=== PATIENT | female | born 1985 | race Caucasian/White ===

== ENCOUNTER → 2019-04-13 | Outpatient (CLI) | payer OTHER ==
[~2019-04-13] MED LIST: ACET1TAB PO; AMOXIL; AZIT-21 PO; CODE118S2 PO; DIPH1TAB25 PO; FLT05NA16 NS; HYDR1TAB PO; NAPR-243 PO; ONDA4TAB8 PO; PHEN200T27 PO; PRM25T PO; PS30T PO; SULF1TAB38 PO
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
== END ==
LOC: RAD 15:20
PROVIDERS: ATTEND Nurse Practitioner Family
DX: M54.6 Pain in thoracic spine (principal)
CPT/HCPCS: 72146

== ENCOUNTER 2019-08-15 02:39 | Emergency (ER) | payer OTHER ==
[~2019-08-15] VITALS: Ht 172.7 cm; Wt 64.4 kg
[2019-08-15] MEDS ORDERED: PROMETHAZINE 25 MG (PHENERGAN) TAB PO ONE (03:15)
[2019-08-15] MEDS ORDERED: diphenhydrAMINE 25 MG TAB (BENADRYL) PO ONE (03:15)
[2019-08-15] MEDS ORDERED: ONDANSETRON 4 MG (ZOFRAN) ORAL DISSOLVE TAB PO ONE (03:15)
[2019-08-15] MEDS ORDERED: KETOROLAC 60 MG/2 ML VIAL IM ONE (03:15)
[2019-08-15] MEDS ORDERED: DEXAMETHASONE 10 MG/ML (DECADRON) 1 ML VIAL IM ONE (03:15)
--- NOTE | 2019-08-15 03:20 | ED Headache ---
General Stated Complaint: MIGRAINE Source: patient Exam Limitations: no limitations History of Present Illness Date Seen by Provider: Aug 15, 2019 Time Seen by Provider: 02:59 Initial Comments The patient arrives to ER by private conveyance from home with chief complaint of a migraine that started about 4 hours ago throbbing behind the eyes bilaterally. She says she has a history of migraines that present just like this. Only rarely does she have ER to get shot. She's had lots of migraines in the last 6 months and associated with allergies. She says she does not tolerate ibuprofen because it causes hives but she has tolerated Toradol in the past. She denies double vision, blindness, weakness, vomiting but she does have nausea. No fevers chills nasal discharge, sore throat, cough or shortness of air. Last menstrual period was approximately 4 weeks ago she expects to start today or tomorrow. She does not take any medicines routinely. She follows irregularly at [facility] as needed. 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 She did take BC powder about 2 hours ago without significant relief. Allergies and Home Medications Allergies Coded Allergies: No Known Drug Allergies (Verified , 10/28/07) Uncoded Allergies: NKDA (Allergy, Mild, 08/14/08) Home Medications Acetaminophen/Caffeine 1 Each Tablet, 1-1.5 TAB PO Q6H PRN for HEADACHE, (Reported) TAKES 1 TO 1 & 1/2 TABLETS NEEDED FOR PAIN Azithromycin 250 Mg Tab, PO Z-JUSTIN, (Reported) 2 TABLETS 1ST DAY (NOW), THEN TAKE 1 TABLET DAILY FOR 4 DAYS FILLED 05-29-13 Fluticasone Propionate 16 Gm [place], 2 SPRAYS NS DAILY, (Reported) Ondansetron 4 Mg/Udtablet Tab.rapdis, 4 MG PO Q6H PRN for PRN Nausea Prescribed by: BETTY SHARMA on 06/01/13 1136 Pseudoephedrine Hcl 30 Mg Tab, 60 MG PO Q6H Prescribed by: MEAGHAN ARGUELLO on 06/01/13 7789 Patient Home Medication List Home Medication List Reviewed: Yes Review of Systems Review of Systems Constitutional: No chills, No diaphoresis Eyes: Denies Blindness, Denies Blurred Vision Ears, Nose, Mouth, Throat: denies ear pain, denies ear discharge Respiratory: No cough, No short of breath Cardiovascular: No edema, No Hx of Intervention Gastrointestinal: No abdominal pain, No constipation, No diarrhea; nausea; No vomiting Genitourinary: No discharge, No dysuria Musculoskeletal: No back pain, No joint pain All Other Systems Reviewed Negative Unless Noted: Yes Past Llnhwkn-Xzkppm-Mrqpwi Hx Patient Social History Alcohol Use: Denies Use Recreational Drug Use: No Smoking Status: Never a Smoker Recent Foreign Travel: No Contact w/Someone Who Travel: No Immunizations Up To Date Date of Influenza Vaccine: Apr 01, 2013 Past Medical History Reproductive Disorders: No Family Medical History Family history: Hypertension 03 FATHER Family history: Thyroid disorder 03 FATHER History of - respiratory disease 03 FATHER (COPD) No Family History of: Abdominal aortic aneurysm Rockcastle's disease Alcoholism Aphasia Cancer Cancer of colon Cataract Chest pain Congenital heart disease Congestive heart failure Cystic fibrosis Dementia Dysphagia Family history: Allergy Family history: Alzheimer's disease Family history: Arthritis Family history: Asthma Family history: Breast disease Family history: Cardiovascular disease Family history: Coronary thrombosis Family history: Diabetes mellitus Family history: Gastrointestinal disease Family history: Glaucoma Family history: Osteoporosis Headache Hearing loss Heart disease Hereditary disease History of - anemia History of - disorder History of drug abuse Human immunodeficiency virus (HIV) seropositivity Hypercholesterolemia Infertile Kidney disease Malignant neoplasm of lung Myocardial infarction Parkinson's disease Prostate cancer Psychotic disorder Seizure disorder Stroke Tuberculosis Visual impairment Physical Exam Vital Signs Capillary Refill : Height, Weight, BMI Height: 5'8.00" Weight: 131lbs. oz. [id number]; BMI Method:Stated General Appearance: WD/WN, mild distress HEENT: normal ENT inspection, TMs normal, pharynx normal Neck: full range of motion, supple, normal inspection Cardiovascular: normal peripheral pulses, regular rate, rhythm Respiratory: no respiratory distress, no accessory muscle use Psychiatric: alert, oriented x 3 Crainal Nerves: normal hearing, normal speech Coordination/Gait: normal gait Motor/Sensory: no motor deficit, no sensory deficit Skin: normal color, warm/dry Progress/Results/Core Measures Results/Orders My Orders Orders - MUNA ALCANTAR Ondansetron Oral Dissolve Tab (Zofran (08/15/19 03:15) Ketorolac Injection (Toradol Injection) (08/15/19 03:15) Promethazine Tablet (Phenergan Tablet) (08/15/19 03:15) Diphenhydramine Tablet (Benadryl Tablet) (08/15/19 03:15) Dexamethasone Injection (Decadron Inject (08/15/19 03:15) Progress Progress Note : Time: 03:18 Progress Note We'll give her Zofran ODT, dexamethasone and Toradol IM. Then we'll give her Phenergan and Benadryl oral and allow her to go home and sleep. She has also requested a note for work. Departure Impression Primary Impression: Migraine headache Qualified Codes: G43.909 - Migraine, unspecified, not intractable, without status migrainosus Disposition: HOME, SELF-CARE Condition: Stable Departure-Patient Inst. Decision time for Depature: 03:19 Referrals: [facility] ([place]) Primary Care Physician Patient Instructions: Migraines (DC) Add. Discharge Instructions: Plan to follow up with your primary care doctor in the next few weeks to discuss medications that might prevent her migraine headaches. Tonight get some sleep and drink plenty of fluids before you lay down. Tylenol 1000 mg every 8 hours as necessary for pain. Naproxen 1-2 tablets twice a day as necessary for pain. Work/School Note: Work Release Form Date Seen in the Emergency Department: Aug 15, 2019 Return to Work: Aug 16, 2019 Restrictions: No Restrictions MUNA ALCANTAR Aug 15, 2019 03:20
--- OUTSIDE RECORDS SUMMARY | 2019-08-15 03:23 | XMS REPORT ---
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 Name Role Phone KASSANDRA CONTRERAS Unavailable PROBLEMS Type Condition ICD9-CM Code TNE90-VC Code Onset Dates Condition S tatus SNOMED Code Problem Dysthymia F34.1 Active 09186560 Problem Other chronic pain G89.29 Active 8 [id number] Problem Migraine with aura and without status migrainosu s, not intractable G43.109 Active 3300724 ALLERGIES No Information ENCOUNTERS Encounter Location Date Diagnosis [place] [address] [address] Apr, [place] [address] [address] Apr, Other chronic pain G89.29 ; Low back fawn n M54.5 and Cervicalgia M54.2 [place] [address] [address] Apr, [place] [address] [address] Apr, [facility] [address] [address] Apr, [place] [address] [address] Apr, Other chronic pain G89.29 ; Low back fawn n M54.5 and Cervicalgia M54.2 [place] [address] [address] 10 Apr, 2019 Other chronic pain G89.29 ; Low back fawn n M54.5 and Cervicalgia M54.2 [place] [address] [address] Apr, Other chronic pain G89.29 ; Low back fawn n M54.5 and Cervicalgia M54.2 [place] [address] [address] Apr, Low back pain M54.5 ; Other chronic pain G89.29 and Cervicalgia M54.2 [place] [address] [address] Mar, Pain in thoracic spine M54.[address] [address] Feb, Pain in thoracic spine M54.6 and Other c hronic pain G89.[address] [address] Dec, Muscle strain T14.8XXA [address] [address] Aug, Dysthymia F34.[address] [address] Jan, Dysthymia F34.1 ; Cervicalgia M54.2 and Family history of systemic lupus erythematosus Z82.[address] [address] Nov, Dysthymia F34.1 ; Migraine with aura and without status migrainosus, not intractable G43.109 ; Screening for diabetes mellitus Z13.1 ; Screening for thyroid disorder Z13.29 ; Screening, iron deficiency anemia Z13.0 and Screening for hyperlipidemia Z13.220 [facility] [address] [facility] [id number] [place] [address] Mar, Pharyngitis J02.9 and Bronch itis J40 [address] [address] Mar, Hematochezia K92.1 and Abdominal pain R1 0.9 [facility] [address] [place] [id number] [place] [address] 03 Mar, 2015 [facility] [address] [address] 30 Feb, 2015 Well woman exam Z01.419 ; Routine screen ing for STI (sexually transmitted infection) Z11.3 ; Vaginal discharge N89.8 ; Irregular menses N92.6 ; History of bloody stools Z87.19 ; Other hemorrhoids K64.8 ; Desire for Z31.9 ; Migraine with aura and without status migrainosus, not intractable G43.109 ; History of abnormal cervical Pap smear Z87.898 ; Unprotected sexual intercourse Z72.51 ; Trichomonas infection A59.9 and Yeast infection B37.9 [facility] [address] [facility] [place] [id number] 16 Feb, 2015 Encounter for dental examination Z01.20 and Dental caries K02.9 [place] [address] [place] [id number] [place] [address] 17 Nov, 2014 Dysuria 788.1 and UTI (urinary tract inf ection) 599.0 [place] [address] [address] 08 Nov, 2014 [place] [address] [address] 04 Nov, 2014 Routine gynecological examination V72.31 ; Breast cancer screening V76.10 ; Screening examination for STD (sexually transmitted disease) V74.5 and Trichomonas infection 131.9 [place] [address] [address] 14 Jun, 2014 [place] [address] [address] Jun, [place] [address] [address] Oct, [facility] [address] [address] Oct, [place] [address] [address] Oct, [facility] [address] [facility] [id number] [facility] [place] [address] Oct, [facility] [address] [facility] [id number] [place] [address] Oct, [facility] [address] [id number] [place] [address] Oct, [facility] [address] [id number] [place] [address] Oct, [facility] [address] [facility] [id number] [place] [address] Oct, [facility] [address] [id number] [place] [address] Oct, [facility] [address] [id number] [place] [address] Jun, [facility] [address] [id number] [place] [address] Jun, [facility] [address] [id number] [place] [address] Jun, [facility] [address] [id number] [place] [address] May, [facility] [address] [id number] [place] [address] Feb, [facility] [address] [id number] [place] [address] Feb, [facility] [address] [id number] [place] [address] Jan, [facility] [address] [id number] [place] [address] Jan, [facility] [address] [id number] [place] [address] Jan, [facility] [address] [id number] [place] [address] Jan, [facility] [address] [id number] [place] [address] Nov, [facility] [address] [id number] [place] [address] Oct, [facility] [address] [id number] [place] [address] Sep, [facility] [address] [id number] [place] [address] Aug, [facility] [address] [place] [id number] [place] [address] Jan, [facility] [address] [id number] [place] [address] Dec, [facility] [address] [id number] [place] [address] Dec, [facility] [address] [id number] [place] [address] Jan, [facility] [address] [id number] [place] [address] Nov, IMMUNIZATIONS No Known Immunizations SOCIAL HISTORY Never Assessed REASON FOR VISIT PLAN OF CARE VITAL SIGNS Height 68 in 2013-06-08 Weight 129.8 lbs 2013-06-08 Temperature 98.8 degrees Fahrenheit 2013-06-08 Heart Rate 72 bpm 2013-06-08 Respiratory Rate 16 2013-06-08 Blood pressure systolic 110 mmHg 2013-06-08 Blood pressure diastolic 74 mmHg 2013-06-08 MEDICATIONS Unknown Medications RESULTS No Results PROCEDURES No Known procedures INSTRUCTIONS MEDICATIONS ADMINISTERED No Known Medications MEDICAL (GENERAL) HISTORY Type Description Date Medical History Genital herpes, unspecified Medical History Pleurisy without mention of effusion or current tuberculosis Medical History Other hemorrhoids Medical History History of abnormal cervical Pap smear Surgical History No Surgical history information Hospitalization History one week for poison mothballs ingest ion 05/2013 Hospitalization History bronchitis not admitted 03/2017
--- OUTSIDE RECORDS SUMMARY | 2019-08-15 03:23 | XMS REPORT ---
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 Name Role Phone ARAM NAVA Unavailable PROBLEMS Type Condition ICD9-CM Code [id number] Code Onset Dates Condition S tatus SNOMED Code Problem Dysthymia F34.1 Active 09575238 Problem Other chronic pain G89.29 Active 8 7511210 Problem Migraine with aura and without status migrainosu s, not intractable G43.109 Active [id number] ALLERGIES No Information ENCOUNTERS Encounter Location Date Diagnosis [facility] [address] [facility] [id number] [address] [place] [address] Jun, Tooth infection K04.7 [facility] [address] [facility] [id number] [address] [place] [address] May, Generalized body aches R52 [facility] [address] [facility] [id number] [address] [place] [address] May, [facility] [address] [facility] [id number] [address] [place] [address] Apr, Other chronic pain G89.29 ; Low back pain M54.5 and Cervicalgia M54.2 [facility] [address] [facility] [id number] [address] [place] [address] 17 Apr, 2019 Other chronic pain G89.29 ; Low back pain M54.5 and Cervicalgia M54.2 [facility] [address] [facility] [id number] [address] [place] [address] Apr, [facility] [address] [facility] [id number] [address] [place] [address] Apr, [facility] [address] [id number] [address] [place] [address] Apr, [facility] [address] [id number] [address] [place] [address] Apr, Other chronic pain G89.29 ; Low back pain M54.5 and Cervicalgia M54.2 [facility] [address] [facility] [id number] [address] [place] [address] Apr, Other chronic pain G89.29 ; Low back pain M54.5 and Cervicalgia M54.2 [place] [address] [id number] [address] [place] [address] Apr, Other chronic pain G89.29 ; Low back pain M54.5 and Cervicalgia M54.2 [place] [address] [facility] [id number] [address] [place] [address] Apr, Low back pain M54.5 ; Other chronic pain G89.29 and Cervicalgia M54.2 [place] [address] [facility] [id number] [address] [place] [address] Mar, Pain in thoracic spine M54.6 [place] [address] [facility] [id number] [address] [place] [address] Feb, Pain in thoracic spine M54.6 and Other chronic pain G89.29 [place] [address] [facility] [id number] [address] [place] [address] Dec, Muscle strain T14.8XXA [place] [address] [facility] [id number] [address] [place] [address] Aug, Dysthymia F34.1 [place] [address] [facility] [id number] [address] [place] [address] Jan, Dysthymia F34.1 ; Cervicalgi a M54.2 and Family history of systemic lupus erythematosus Z82.69 [place] [address] [facility] [id number] [address] [place] [address] 20 Sep, 2018 Dysthymia F34.1 ; Migraine w ith aura and without status migrainosus, not intractable G43.109 ; Screening for diabetes mellitus Z13.1 ; Screening for thyroid disorder Z13.29 ; Screening, iron deficiency anemia Z13.0 and Screening for hyperlipidemia Z13.220 [facility] [address] [facility] [id number] [address] [place] [address] Mar, Pharyngitis J02.9 and Bronch itis J40 [facility] [address] [place] [id number] [address] [place] [address] Mar, Hematochezia K92.1 and Abdom inal pain R10.[address] [address] Mar, [place] [address] [place] [id number] [address] [place] [address] Feb, Well woman exam Z01.419 ; Ro utine screening for STI (sexually transmitted infection) Z11.3 ; Vaginal discharge N89.8 ; Irregular menses N92.6 ; History of bloody stools Z87.19 ; Other hemorrhoids K64.8 ; Desire for Z31.9 ; Migraine with aura and without status migrainosus, not intractable G43.109 ; History of abnormal cervical Pap smear Z87.898 ; Unprotected sexual intercourse Z72.51 ; Trichomonas infection A59.9 and Yeast infection B37.9 [facility] [address] [place] [id number] [address] [place] [id number] 16 Feb, 2015 Encounter for dental examina tion Z01.20 and Dental caries K02.9 [facility] [address] [place] [id number] [address] [place] [address] 17 Nov, 2014 Dysuria 788.1 and UTI (urina ry tract infection) 599.0 [facility] [address] [place] [id number] [address] [place] [address] 08 Nov, 2014 [facility] [address] [place] [id number] [address] [place] [address] Nov, Routine gynecological examin ation V72.31 ; Breast cancer screening V76.10 ; Screening examination for STD (sexually transmitted disease) V74.5 and Trichomonas infection 131.9 [facility] [address] [id number] [address] [place] [address] 14 Jun, 2014 [facility] [place] [address] [id number] [address] [place] [address] Jun, [facility] [place] [address] [id number] [address] [place] [address] Oct, [facility] [place] [address] [id number] [address] [place] [address] Oct, [facility] [place] [address] [id number] [address] [place] [address] Oct, [facility] [place] [address] [id number] [address] [place] [address] Oct, [facility] [place] [address] [id number] [address] [place] [address] Oct, [facility] [place] [address] [id number] [address] [place] [address] Oct, [facility] [place] [address] [id number] [address] [place] [address] Oct, [facility] [place] [address] [id number] [address] [place] [address] Oct, [facility] [place] [address] [id number] [address] [place] [address] Oct, [facility] [place] [address] [id number] [address] [place] [address] Jun, [facility] [place] [address] [id number] [address] [place] [address] Jun, [facility] [place] [address] [id number] [address] [place] [address] Jun, [facility] [place] [address] [id number] [address] [place] [address], [place] [address] May, [facility] [address] [id number] [address] [place] [address], [place] [address] Feb, [facility] [address] [id number] [address] [place] [address], [place] [address] Feb, [facility] [address] [id number] [address] [place] [address], [place] [address] Jan, [facility] [address] [id number] [address] [place] [address], [place] [address] Jan, [facility] [address] [id number] [address] [place] [address], [place] [address] Jan, [facility] [address] [id number] [address] [place] [address], [place] [address] Jan, [facility] [address] [id number] [address] [place] [address], [place] [address] Nov, [facility] [address] [id number] [address] [place] [address], [place] [address] Oct, [facility] [address] [id number] [address] [place] [address], [place] [address] Sep, [facility] [place] [address] [id number] [address] [place] [address], [place] [address] Aug, [facility] [place] [address] [id number] [address] [place] [address] Jan, [facility] [place] [address] [id number] [address] [place] [address] Dec, [facility] [address] [id number] [address] [place] [address] Dec, [facility] [place] [address] [id number] [address] [place] [address] Jan, [facility] [place] [address] [id number] [address] [place] [address] 10 Nov, 2008 IMMUNIZATIONS No Known Immunizations SOCIAL HISTORY Never Assessed REASON FOR VISIT PLAN OF CARE VITAL SIGNS Height 68 in 2011-08-29 Weight 121.3 lbs 2011-08-29 Temperature 97.8 degrees Fahrenheit 2011-08-29 Heart Rate 64 bpm 2011-08-29 Respiratory Rate 16 2011-08-29 Blood pressure systolic 94 mmHg 2011-08-29 Blood pressure diastolic 60 mmHg 2011-08-29 MEDICATIONS No Known Medications RESULTS No Results PROCEDURES No Known [...]
--- OUTSIDE RECORDS SUMMARY | 2019-08-15 03:23 | XMS REPORT ---
Author Author Remedios Ovalles Organization [facility] Address [address] [place] [address] Care Team Providers Care Photographic Process Worker Name Role Phone JANNETTE Ovalles Unavailable PROBLEMS Type Condition ICD9-CM Code VCB70-KI Code Onset Dates Condition S tatus SNOMED Code Problem Dysthymia F34.1 Active 90314152 Problem Other chronic pain G89.29 Active 8 9841058 Problem Migraine with aura and without status migrainosu s, not intractable G43.109 Active [id number] ALLERGIES No Information ENCOUNTERS Encounter Location Date Diagnosis [facility] [address] [facility] [id number] [address] [place] [address] Jun, Tooth infection K04.7 [facility] [address] [facility] [id number] [address] [place] [address] May, Generalized body aches R52 [place] [address] [facility] [id number] [address] [place] [address] May, [facility] [address] [facility] [id number] [address] [place] [address] 20 Apr, 2019 Other chronic pain G89.29 ; Low back pain M54.5 and Cervicalgia M54.2 [facility] [address] [facility] [id number] [address] [place] [address] 17 Apr, 2019 Other chronic pain G89.29 ; Low back pain M54.5 and Cervicalgia M54.2 [facility] [address] [facility] [id number] [address] [place] [address] 13 Apr, 2019 [facility] [address] [facility] [id number] [address] [place] [address] Apr, [facility] [address] [facility] [id number] [address] [place] [address] Apr, [facility] [address] [facility] [id number] [address] [place] [address] Apr, Other chronic pain G89.29 ; Low back pain M54.5 and Cervicalgia M54.2 [place] [address] [facility] [id number] [address] [place] [address] Apr, Other chronic pain G89.29 ; Low back pain M54.5 and Cervicalgia M54.2 [place] [address] [facility] [id number] [address] [place] [address] Apr, Other chronic pain G89.29 ; Low back pain M54.5 and Cervicalgia M54.2 [place] [address] [facility] [id number] [address] [place] [address] Apr, Low back pain M54.5 ; Other chronic pain G89.29 and Cervicalgia M54.2 [place] [address] [facility] [id number] [address] [place] [address] Mar, Pain in thoracic spine M54.6 [place] [address] [facility] [id number] [address] [place] [address] Feb, Pain in thoracic spine M54.6 and Other chronic pain G89.29 [place] [address] [facility] [id number] [address] [place] [address] Dec, Muscle strain T14.8XXA [place] [address] [facility] [id number] [address] [place] [address] Aug, Dysthymia F34.1 [place] [address] [facility] [id number] [address] [place] [address] Jan, Dysthymia F34.1 ; Cervicalgi a M54.2 and Family history of systemic lupus erythematosus Z82.69 [place] [address] [facility] [id number] [address] [place] [address] Nov, Dysthymia F34.1 ; Migraine w ith aura and without status migrainosus, not intractable G43.109 ; Screening for diabetes mellitus Z13.1 ; Screening for thyroid disorder Z13.29 ; Screening, iron deficiency anemia Z13.0 and Screening for hyperlipidemia Z13.220 [facility] [address] [place] [id number] [address] [place] [address] Mar, Pharyngitis J02.9 and Bronch itis J40 [facility] [address] [address] Mar, Hematochezia K92.1 and Abdom inal pain R10.9 [place] [address] [place] [id number] [address] [place] [address] Mar, [facility] [address] [place] [id number] [address] [place] [address] 30 Feb, 2015 Well woman exam Z01.419 ; Ro utine [...] Trichomonas infection A59.9 and Yeast infection B37.9 [facility] [address] [place] [id number] [address] [place] [id number] 16 Feb, 2015 Encounter for dental examina tion Z01.20 and Dental caries K02.9 [facility] [address] [place] [id number] [address] [place] [address] 17 Nov, 2014 Dysuria 788.1 and UTI (urina ry tract infection) 599.0 [facility] [address] [place] [id number] [address] [place] [address] 08 Nov, 2014 [facility] [address] [place] [id number] [address] [place] [address] Nov, Routine gynecological examin ation V72.31 ; Breast cancer screening V76.10 ; Screening examination for STD (sexually transmitted disease) V74.5 and Trichomonas infection 131.9 [facility] [address] [id number] [address] [place] [address] 14 Jun, 2014 [facility] [address] [id number] [address] [place] [address] Jun, [facility] [address] [id number] [address] [place] [address] Oct, [facility] [address] [id number] [address] [place] [address] Oct, [facility] [address] [id number] [address] [place] [address] Oct, [facility] [address] [id number] [address] [place] [address] Oct, [facility] [address] [id number] [address] [place] [address] Oct, [facility] [address] [id number] [address] [place] [address] Oct, [facility] [address] [id number] [address] [place] [address] Oct, [facility] [address] [id number] [address] [place] [address] Oct, [facility] [address] [id number] [address] [place] [address] Oct, [facility] [address] [id number] [address] [place] [address] Jun, [facility] [address] [id number] [address] [place] [address] Jun, [facility] [address] [id number] [address] [place] [address] Jun, [facility] [address] [id number] [address] [place] [address], [place] [address] May, [facility] [address] [id number] [address] [place] [address], [place] [address] Feb, [facility] [address] [id number] [address] [place] [address], [place] [address] Feb, [facility] [address] [id number] [address] [place] [address], [place] [address] Jan, [facility] [address] [id number] [address] [place] [address], [place] [address] Jan, [facility] [address] [id number] [address] [place] [address], [place] [address] Jan, [facility] [address] [id number] [address] [place] [address], [place] [address] Jan, [facility] [address] [id number] [address] [place] [address], [place] [address] Nov, [facility] [address] [id number] [address] [place] [address], [place] [address] Oct, [facility] [address] [id number] [address] [place] [address], [place] [address] Sep, [facility] [address] [id number] [address] [place] [address], [place] [address] Aug, [facility] [address] [id number] [address] [place] [address], [place] [address] Jan, [facility] [address] [id number] [address] [place] [address], [place] [address] Dec, [facility] [address] [id number] [address] [place] [address], [place] [address] Dec, [facility] [address] [id number] [address] [place] [address], [place] [address] Jan, [facility] [address] [id number] [address] [place] [address], [place] [address] 10 Nov, 2008 IMMUNIZATIONS No Known Immunizations SOCIAL HISTORY Never Assessed REASON FOR VISIT PLAN OF CARE VITAL SIGNS MEDICATIONS No Known Medications RESULTS No Results [...]
--- OUTSIDE RECORDS SUMMARY | 2019-08-15 03:24 | XMS REPORT ---
Author Author Remedios Ovalles Organization [facility] Address [address] [place] [address] Care Team Providers Care Meat Hanger Name Role Phone JANNETTE Ovalles Unavailable PROBLEMS Type Condition ICD9-CM Code OOW07-NF Code Onset Dates Condition S tatus SNOMED Code Problem Migraine with aura and without status migrainosu s, not intractable G43.109 Active 0299168 Problem Dysthymia F34.1 Active 22205941 ALLERGIES No Information ENCOUNTERS Encounter Location Date Diagnosis [address] [address] Aug, Dysthymia F34.[address] [address] Jan, Dysthymia F34.1 ; Cervicalgi a M54.2 and Family history of systemic lupus erythematosus Z82.[address] [address] Nov, Dysthymia F34.1 ; Migraine w ith aura and without status migrainosus, not intractable G43.109 ; Screening for diabetes mellitus Z13.1 ; Screening for thyroid disorder Z13.29 ; Screening, iron deficiency anemia Z13.0 and Screening for hyperlipidemia Z13.220 [facility] [address] [address] Mar, Pharyngitis J02.9 and Bronch itis J40 [address] [address] Mar, Hematochezia K92.1 and Abdom inal pain R10.[address] [address] 03 Mar, 2015 [facility] [address] [facility] [id number] [address] [place] [address] 30 Feb, 2015 Well woman exam Z01.419 [...] Trichomonas infection A59.9 and Yeast infection B37.9 [facility] [address] [facility] [id number] [address] [place] [id number] 16 Feb, 2015 Encounter for dental examina tion Z01.20 and Dental caries K02.9 [facility] [address] [facility] [id number] [address] [place] [address] 17 Nov, 2014 Dysuria 788.1 and UTI (urina ry tract infection) 599.0 [facility] [address] [facility] [id number] [address] [place] [address] Nov, [facility] [address] [facility] [id number] [address] [place] [address] 04 Nov, 2014 Routine gynecological examin ation V72.31 ; Breast cancer screening V76.10 ; Screening examination for STD (sexually transmitted disease) V74.5 and Trichomonas infection 131.9 [facility] [address] [facility] [id number] [address] [place] [address] Jun, [facility] [address] [facility] [id number] [address] [place] [address] Jun, [facility] [address] [facility] [id number] [address] [place] [address] Oct, [facility] [address] [facility] [id number] [address] [place] [address] Oct, [facility] [address] [id number] [address] [place] [address], [place] [address] Oct, [facility] [address] [id number] [address] [place] [address], [place] [address] Oct, [facility] [address] [id number] [address] [place] [address], [place] [address] Oct, [facility] [address] [id number] [address] [place] [address], [place] [address] Oct, [facility] [address] [id number] [address] [place] [address], [place] [address] Oct, [facility] [address] [id number] [address] [place] [address], [place] [address] Oct, [facility] [address] [id number] [address] [place] [address], [place] [address] Oct, [facility] [address] [id number] [address] [place] [address], [place] [address] Jun, [facility] [address] [id number] [address] [place] [address], [place] [address] Jun, [facility] [address] [id number] [address] [place] [address], [place] [address] Jun, [facility] [address] [id number] [address] [place] [address], [place] [address] May, [facility] [address] [id number] [address] [place] [address], [place] [address] Feb, [facility] [address] [id number] [address] [place] [address], [place] [address] Feb, [facility] [address] [id number] [address] [place] [address], [place] [address] Jan, [facility] [address] [id number] [address] [place] [address], [place] [address] Jan, [facility] [address] [id number] [address] [place] [address], [place] [address] Jan, [facility] [address] [id number] [address] [place] [address] Jan, [facility] [address] [id number] [address] [place] [phone] Nov, [facility] [address] [id number] [address] [place] [address] Oct, [facility] [address] [id number] [address] [place] [address] Sep, [facility] [address] [id number] [address] [place] [address] Aug, [facility] [address] [id number] [address] [place] [address] Jan, [facility] [address] [id number] [address] [place] [address] Dec, [facility] [address] [id number] [address] [place] [address] Dec, [facility] [address] [id number] [address] [place] [address] Jan, [facility] [address] [id number] [address] [place] [address] Nov, IMMUNIZATIONS No Known Immunizations SOCIAL HISTORY Never Assessed REASON FOR VISIT PLAN OF CARE VITAL SIGNS Height 68 in 2013-10-16 Weight 137 lbs 2013-10-16 Temperature 97.3 degrees Fahrenheit 2013-10-16 Blood pressure systolic 116 mmHg 2013-10-16 Blood pressure diastolic 70 mmHg 2013-10-16 MEDICATIONS Unknown Medications RESULTS No Results PROCEDURES Procedure Date Ordered Result Body Site TRICHOMONAS VAGIN, DIR PROBE Oct 16, 2013 SCR PAP SMER;NEW PT OBTAIN PREP&CONVY-LAB Oct 16, 2013 CYTOPATH C/V AUTO FLUID REDO Oct 16, 2013 CHYLMD TRACH, DNA, AMP PROBE Oct 16, 2013 CULTURE, BACTERIA, OTHER Oct 16, 2013 INSTRUCTIONS MEDICATIONS ADMINISTERED No Known Medications MEDICAL (GENERAL) HISTORY Type Description Date Medical History Genital herpes, unspecified Medical History Pleurisy without mention of effusion or current tuberculosis Medical History Other hemorrhoids Medical History History of abnormal cervical Pap smear Surgical History No know Surgical history Hospitalization History one week for poison mothballs ingest ion 05/2013 Hospitalization History bronchitis not admitted 03/2017
--- OUTSIDE RECORDS SUMMARY | 2019-08-15 03:24 | XMS REPORT ---
Author Author Remedios STATON Organization [employer] Address Unknown Phone Unavailable Care Team Providers Care Tool Machinist Name Role Phone ANNEL STATON CP Unavailable Allergies, Adverse Reactions, Alerts Substance Reaction Event Type Ibuprofen hives Drug Allergy Problems Problem Type Condition Code Onset Dates Condition Statu s Assessment Abdominal pain R10.9 Active Problem Chest pain, unspecified R07.9 Acti ve Assessment Hematochezia K92.1 Active Problem Other hemorrhoids K64.8 Active Problem Desire for Z31.9 Active Problem History of bloody stools Z87.19 Act lizzette Problem Genital herpes, unspecified A60.00 Active Problem Pleurisy without mention of effusion or current tuberc ulosis R09.1 Active Problem Migraine with aura and without status mi grainosus, not intractable G43.109 Active Problem History of abnormal cervical Pap smear Z87.898 Active Medications Medication Code System Code Instructions Start Date End Date Status Dosage potassium NDC 0 Oral 1 tab Acyclovir [facility] [address]-14 400 mg Oct 16, 2013 ta ke 1 tablet (400 mg) by oral route 2 times per day Multivitamins [facility] [address] Orally Once a day 1 tablet Magnesium [facility] [address] 500 MG Orally Once a day 1 tablet with a meal Lactinex [facility] 2073-770664 Orally not define d Procedures Procedure Coding System Code Date Office Visit, Est Pt., Level 3 CPT-4 96403 J an 2015 Vital Signs Date/Time: Mar 12, 2015 Temperature 98.6 F Weight 136.6 lbs Height 68 in BMI 20.77 Index Blood Pressure Diastolic 62 mmHg Blood Pressure Systolic 104 mmHg Cardiac Monitoring Heart Rate 64 bpm Results No Known Results Summary Purpose [employer] Submission
--- OUTSIDE RECORDS SUMMARY | 2019-08-15 03:24 | XMS REPORT ---
Author Author Remedios PONCE Organization [facility] Address [address] [place] [address] Care Team Providers Care Technical Project Lead Name Role Phone PAUL PONCETA Unavailable PROBLEMS Type Condition ICD9-CM Code ZAJ67-CO Code Onset Dates Condition S tatus SNOMED Code Problem Dysthymia F34.1 Active 37448638 Problem Migraine with aura and without status migrainosu s, not intractable G43.109 Active 0829279 ALLERGIES Substance Reaction Event Type Date Status Ibuprofen hives Drug Allergy Nov, Active ENCOUNTERS Encounter Location Date Diagnosis [facility] [address] [address] Nov, Dysthymia F34.1 ; Migraine w ith aura and without status migrainosus, not intractable G43.109 ; Screening for diabetes mellitus Z13.1 ; Screening for thyroid disorder Z13.29 ; Screening, iron deficiency anemia Z13.0 and Screening for hyperlipidemia Z13.220 [facility] [address] [address] Mar, Pharyngitis J02.9 and Bronch itis J40 [facility] [address] [address] Mar, Hematochezia K92.1 and Abdom inal pain R10.9 [facility] [address] [address] Mar, [address] [address] Feb, Well woman exam Z01.419 ; Ro [...] B37.9 [facility] [address] [id number] [address] [place] [id number] 16 Feb, 2015 Encounter for dental examina tion Z01.20 and Dental caries K02.9 [facility] [address] [id number] [address] [place] [address] 17 Nov, 2014 Dysuria 788.1 and UTI (urina ry tract infection) 599.0 [facility] [address] [facility] [id number] [address] [place] [address] 08 Nov, 2014 [facility] [address] [facility] [id number] [address] [place] [phone] 04 Nov, 2014 Routine gynecological examin ation V72.31 ; Breast cancer screening V76.10 ; Screening examination for STD (sexually transmitted disease) V74.5 and Trichomonas infection 131.9 [facility] [address] [facility] [id number] [address] [place] [address] 14 Jun, 2014 [facility] [address] [facility] [id number] [address] [place] [address] Jun, [facility] [address] [id number] [address] [place] [address] Oct, [facility] [address] [id number] [address] [place] [address] Oct, [facility] [address] [id number] [address] [place] [address] Oct, [facility] [address] [id number] [address] [place] [address] Oct, [facility] [address] [facility] [id number] [address] [place] [address] 14 Oct, 2013 [facility] [address] [id number] [address] [place] [address], [place] [address] Oct, [facility] [address] [id number] [address] [place] [address], [place] [address] Oct, [facility] [address] [id number] [address] [place] [address], [place] [address] Oct, [facility] [address] [id number] [address] [place] [address], [place] [address] Oct, [facility] [address] [id number] [address] [place] [address], [place] [address] Jun, [facility] [address] [id number] [address] [place] [address], [place] [address] Jun, [facility] [address] [id number] [address] [place] [address], [place] [address] Jun, [facility] [address] [id number] [address] [place] [address], [place] [address] May, [facility] [address] [id number] [address] [place] [address], [place] [address] Feb, [facility] [address] [id number] [address] [place] [address], [place] [address] Feb, [facility] [address] [id number] [address] [place] [address], [place] [address] Jan, [facility] [address] [id number] [address] [place] [address], [place] [address] Jan, [facility] [address] [id number] [address] [place] [address], [place] [address] Jan, [facility] [address] [id number] [address] [place] [address], [place] [address] Jan, [facility] [address] [id number] [address] [place] [address], [place] [address] Nov, [facility] [address] [id number] [address] [place] [address] Oct, [facility] [address] [id number] [address] [place] [phone] Sep, [facility] [address] [id number] [address] [place] [address] Aug, [facility] [address] [id number] [address] [place] [address] Jan, [facility] [address] [id number] [address] [place] [address] Dec, [facility] [address] [id number] [address] [place] [address] Dec, [facility] [address] [id number] [address] [place] [address] Jan, [facility] [address] [id number] [address] [place] [address] Nov, IMMUNIZATIONS No Known Immunizations SOCIAL HISTORY Never Assessed REASON FOR VISIT Establish Care Beverly VALDES, Discuss medications Corrina Palomino MA, Migraines Corrina Palomino MA, Depression Corrina Palomino MA PLAN OF CARE Activity Details Follow Up 4 Weeks Reason:anxiety/migra levon VITAL SIGNS Height 68 in 2017-11-25 Weight 110.5 lbs 2017-11-25 Temperature 98.3 degrees Fahrenheit 2017-11-25 Heart Rate 74 bpm 2017-11-25 Respiratory Rate 20 2017-11-25 BMI 16.80 kg/m2 2017-11-25 Blood pressure systolic 114 mmHg 2017-11-25 Blood pressure diastolic 74 mmHg 2017-11-25 MEDICATIONS Medication Instructions Dosage Frequency Start Date End Date Duration S tatus B12 Folate 1000 MG as directed A ctive Fish Oil Nuevo-3 1000 MG Orally Once a day 1 capsule 24h 30 day(s) Active Prozac 20 mg Orally Once a day 1 capsule 24h 20 Nov, 2017 30 day(s) Active D3 Adult 1000 MG Orally Once a day 4 tablets 24h Active Vitamin C 500 mg Orally Once a day 1 tablet 24h Active BC Headache 325-16-95 MG as directed Active Propranolol HCl 10 mg Orally 2 times a day 1 tablet on an empty sto mach 12h 20 Nov, 2017 30 day(s) Active RESULTS No Results PROCEDURES Procedure Date Ordered Result Body Site COMPREHEN METABOLIC PANEL Nov 25, 2017 ASSAY THYROID STIM HORMONE Nov 25, 2017 LIPID PANEL Nov 25, 2017 ASSAY OF VITAMIN D Nov 25, 2017 VENIPUNCT, ROUTINE* Nov 25, 2017 INSTRUCTIONS MEDICATIONS ADMINISTERED No Known Medications MEDICAL (GENERAL) HISTORY Type Description Date Surgical History No know Surgical history Hospitalization History one week for poison mothballs ingest ion 05/2013 Hospitalization History bronchitis not admitted 03/2017
--- OUTSIDE RECORDS SUMMARY | 2019-08-15 03:24 | XMS REPORT ---
Author Author Remedios Alonzo Doctor Organization [facility] Address Unknown Phone Unavailable Care Team Providers Care Operating Room Aide Name Role Phone Migration, Doctor Unavailable Unavailable PROBLEMS Type Condition ICD9-CM Code ALD28-YL Code Onset Dates Condition S tatus SNOMED Code Problem Migraine with aura and without status migrainosu s, not intractable G43.109 Active 9451226 Problem Dysthymia F34.1 Active 26092807 ALLERGIES No Information ENCOUNTERS Encounter Location Date Diagnosis [address] [address] Jan, Dysthymia F34.1 ; Cervicalgi a M54.2 and Family history of systemic lupus erythematosus Z82.[address] [address] 20 Nov, 2017 Dysthymia F34.1 ; Migraine w ith aura and without status migrainosus, not intractable G43.109 ; Screening for diabetes mellitus Z13.1 ; Screening for thyroid disorder Z13.29 ; Screening, iron deficiency anemia Z13.0 and Screening for hyperlipidemia Z13.220 [facility] [address] [address] Mar, Pharyngitis J02.9 and Bronch itis J40 [address] [address] Mar, Hematochezia K92.1 and Abdom inal pain R10.[address] [address] Mar, [address] [address] Feb, Well woman exam Z01.419 ; Ro [...] Trichomonas infection A59.9 and Yeast infection B37.9 [facility] [address] [id number] [address] [place] [id number] 16 Feb, 2015 Encounter for dental examina tion Z01.20 and Dental caries K02.9 [facility] [address] [facility] [id number] [address] [place] [address] 17 Nov, 2014 Dysuria 788.1 and UTI (urina ry tract infection) 599.0 [facility] [address] [facility] [id number] [address] [place] [address] 08 Nov, 2014 [facility] [address] [facility] [id number] [address] [place] [address] 04 Nov, 2014 Routine gynecological examin ation V72.31 ; Breast cancer screening V76.10 ; Screening examination for STD (sexually transmitted disease) V74.5 and Trichomonas infection 131.9 [facility] [address] [facility] [id number] [address] [place] [address] 14 Jun, 2014 [facility] [address] [facility] [id number] [address] [place] [address] Jun, [facility] [address] [id number] [address] [place] [address] Oct, [facility] [address] [id number] [address] [place] [address] Oct, [facility] [address] [facility] [id number] [address] [place] [address] Oct, [facility] [address] [facility] [id number] [address] [place] [address] Oct, [facility] [address] [id number] [address] [place] [address], [place] [address] 14 Oct, 2013 [facility] [address] [id number] [address] [place] [address], [place] [address] Oct, [facility] [address] [id number] [address] [place] [address], [place] [address] Oct, [facility] [address] [id number] [address] [place] [address], [place] [address] Oct, [facility] [address] [id number] [address] [place] [address], [place] [address] Oct, [facility] [address] [id number] [address] [place] [address], [place] [address] Jun, [facility] [address] [id number] [address] [place] [address], [place] [address] Jun, [facility] [address] [id number] [address] [place] [address], [place] [address] Jun, [facility] [address] [id number] [address] [place] [address], [place] [address] May, [facility] [address] [id number] [address] [place] [address], [place] [address] Feb, [facility] [address] [id number] [address] [place] [address], [place] [address] Feb, [facility] [address] [id number] [address] [place] [address], [place] [address] Jan, [facility] [address] [id number] [address] [place] [address], [place] [address] Jan, [facility] [address] [id number] [address] [place] [address], [place] [address] 05 Jan, 2013 [facility] [address] [id number] [address] [place] [address], [place] [address] Jan, [facility] [address] [id number] [address] [place] [address], [place] [address] Nov, [facility] [address] [id number] [address] [place] [phone] Oct, [facility] [address] [id number] [address] [place] [address] Sep, [facility] [address] [id number] [address] [place] [address] Aug, [facility] [address] [id number] [address] [place] [address] Jan, [facility] [address] [id number] [address] [place] [address] Dec, [facility] [address] [id number] [address] [place] [address] Dec, [facility] [address] [facility] [id number] [address] [place] [address] Jan, [facility] [address] [facility] [id number] [address] [place] [address] Nov, IMMUNIZATIONS No Known Immunizations SOCIAL HISTORY Never Assessed REASON FOR VISIT EMR-[facility] [place] PLAN OF CARE VITAL SIGNS MEDICATIONS No [...]
--- OUTSIDE RECORDS SUMMARY | 2019-08-15 03:24 | XMS REPORT ---
Author Author Remedios Alonzo Doctor Organization [facility] Address Unknown Phone Unavailable Care Team Providers Care Bolt Sawyer Name Role Phone Migration, Doctor Unavailable Unavailable PROBLEMS Type Condition ICD9-CM Code [id number] Code Onset Dates Condition S tatus SNOMED Code Problem Migraine with aura and without status migrainosu s, not intractable G43.109 Active 6782489 Problem Dysthymia F34.1 Active 64233505 ALLERGIES No Information ENCOUNTERS Encounter Location Date Diagnosis [address] [address] Jan, Dysthymia F34.1 ; Cervicalgi a M54.2 and Family history of systemic lupus erythematosus Z82.[address] [address] 20 Nov, 2017 Dysthymia F34.1 ; Migraine w ith aura and without status migrainosus, not intractable G43.109 ; Screening for diabetes mellitus Z13.1 ; Screening for thyroid disorder Z13.29 ; Screening, iron deficiency anemia Z13.0 and Screening for hyperlipidemia Z13.220 [facility] [address] [address] Mar, Pharyngitis J02.9 and Bronch itis J40 [address] [address] Mar, Hematochezia K92.1 and Abdom inal pain R10.[address] [address] Mar, [address] [address] Feb, Well woman exam Z01.419 ; Ro [...] A59.9 and Yeast infection B37.9 [facility] [address] [id number] [address] [place] [id number] 16 Feb, 2015 Encounter for dental examina tion Z01.20 and Dental caries K02.9 [facility] [address] [facility] [id number] [address] [place] [address] 17 Nov, 2014 Dysuria 788.1 and UTI (urina ry tract infection) 599.0 [facility] [address] [facility] [id number] [address] [place] [address] 08 Nov, 2014 [facility] [address] [facility] [id number] [address] [place] [address] 04 Nov, 2014 Routine gynecological examin ation V72.31 ; Breast cancer screening V76.10 ; Screening examination for STD (sexually transmitted disease) V74.5 and Trichomonas infection 131.9 [facility] [address] [facility] [id number] [address] [place] [address] 14 Jun, 2014 [facility] [address] [facility] [id number] [address] [place] [address] Jun, [facility] [address] [id number] [address] [place] [address] Oct, [facility] [address] [id number] [address] [place] [address] Oct, [facility] [address] [facility] [id number] [address] [place] [address] Oct, [facility] [address] [facility] [id number] [address] [place] [address] Oct, [facility] [address] [id number] [address] [place] [address], [place] [address] 14 Oct, 2013 [facility] [address] [id number] [address] [place] [address], [place] [address] Oct, [facility] [address] [id number] [address] [place] [address], [place] [address] Oct, [facility] [address] [id number] [address] [place] [address], [place] [address] Oct, [facility] [address] [id number] [address] [place] [address], [place] [address] Oct, [facility] [address] [id number] [address] [place] [address], [place] [address] Jun, [facility] [address] [id number] [address] [place] [address], [place] [address] Jun, [facility] [address] [id number] [address] [place] [address], [place] [address] Jun, [facility] [address] [id number] [address] [place] [address], [place] [address] May, [facility] [address] [id number] [address] [place] [address], [place] [address] Feb, [facility] [address] [id number] [address] [place] [address], [place] [address] Feb, [facility] [address] [id number] [address] [place] [address], [place] [address] Jan, [facility] [address] [id number] [address] [place] [address], [place] [address] Jan, [facility] [address] [id number] [address] [place] [address], [place] [address] 05 Jan, 2013 [facility] [address] [id number] [address] [place] [address], [place] [address] Jan, [facility] [address] [id number] [address] [place] [address], [place] [address] Nov, [facility] [address] [id number] [address] [place] [address] Oct, [facility] [address] [id number] [address] [place] [address] Sep, [facility] [address] [id number] [address] [place] [address] Aug, [facility] [address] [id number] [address] [place] [address] Jan, [facility] [address] [id number] [address] [place] [address] Dec, [facility] [address] [id number] [address] [place] [address] Dec, [facility] [address] [id number] [address] [place] [address] Jan, [facility] [address] [id number] [address] [place] [address] Nov, IMMUNIZATIONS No Known Immunizations SOCIAL HISTORY Never Assessed REASON FOR VISIT EMR-[facility] PLAN OF CARE VITAL SIGNS MEDICATIONS Medication Instructions Dosage Frequency Start Date End Date Duration S tatus Diflucan 150 mg take 1 tablet by Oral route once 1 ti me per day Oct, Active Flagyl 500 mg 1 tablet by Oral route 2 times per day f or 7 days Oct, Active PredniSONE 20 mg 1 tablet by Oral route 1 time per day for 5 days Feb, Active Acyclovir 400 mg take 1 tablet (400 mg) by oral route 2 times per day Oct, Active Bactrim DS 800-160 mg take 1 tablet by oral rout e every 12 hours for 7 day(s) Jan, Active RESULTS No Results PROCEDURES No Known procedures [...]
--- OUTSIDE RECORDS SUMMARY | 2019-08-15 03:24 | XMS REPORT ---
Author Author Remedios Alonzo Doctor Organization [facility] Address Unknown Phone Unavailable Care Team Providers Care Wrinkle Chaser Name Role Phone Migration, Doctor Unavailable Unavailable PROBLEMS Type Condition ICD9-CM Code NLY06-JE Code Onset Dates Condition S tatus SNOMED Code Problem Migraine with aura and without status migrainosu s, not intractable G43.109 Active 0277658 Problem Dysthymia F34.1 Active 74144684 ALLERGIES No Information ENCOUNTERS Encounter Location Date Diagnosis [address] [address] Jan, Dysthymia F34.1 ; Cervicalgi a M54.2 and Family history of systemic lupus erythematosus Z82.[address] [address] 20 Nov, 2017 Dysthymia F34.1 ; Migraine w ith aura and without status migrainosus, not intractable G43.109 ; Screening for diabetes mellitus Z13.1 ; Screening for thyroid disorder Z13.29 ; Screening, iron deficiency anemia Z13.0 and Screening for hyperlipidemia Z13.220 [facility] [address] [address] Mar, Pharyngitis J02.9 and Bronch itis J40 [address] [address] Mar, Hematochezia K92.1 and Abdom inal pain R10.[address] [address] Mar, [address] [address] Feb, Well woman exam Z01.419 ; Ro [...] Trichomonas infection A59.9 and Yeast infection B37.9 [facility] [address] [id number] [address] [place] [id number] 16 Feb, 2015 Encounter for dental examina tion Z01.20 and Dental caries K02.9 [facility] [address] [facility] [id number] [address] [place] [address] 17 Nov, 2014 Dysuria 788.1 and UTI (urina ry tract infection) 599.0 [facility] [address] [facility] [id number] [address] [place] [address] 08 Nov, 2014 [facility] [address] [facility] [id number] [address] [place] [address] 04 Nov, 2014 Routine gynecological examin ation V72.31 ; Breast cancer screening V76.10 ; Screening examination for STD (sexually transmitted disease) V74.5 and Trichomonas infection 131.9 [facility] [address] [facility] [id number] [address] [place] [address] 14 Jun, 2014 [facility] [address] [facility] [id number] [address] [place] [address] Jun, [facility] [address] [id number] [address] [place] [address] Oct, [facility] [address] [id number] [address] [place] [address] Oct, [facility] [address] [facility] [id number] [address] [place] [address] Oct, [facility] [address] [facility] [id number] [address] [place] [address] Oct, [facility] [address] [id number] [address] [place] [address], [place] [address] 14 Oct, 2013 [facility] [address] [id number] [address] [place] [address], [place] [address] Oct, [facility] [address] [id number] [address] [place] [address], [place] [address] Oct, [facility] [address] [id number] [address] [place] [address], [place] [address] Oct, [facility] [address] [id number] [address] [place] [address], [place] [address] Oct, [facility] [address] [id number] [address] [place] [address], [place] [address] Jun, [facility] [address] [id number] [address] [place] [address], [place] [address] Jun, [facility] [address] [id number] [address] [place] [address], [place] [address] Jun, [facility] [address] [id number] [address] [place] [address], [place] [address] May, [facility] [address] [id number] [address] [place] [address], [place] [address] Feb, [facility] [address] [id number] [address] [place] [address], [place] [address] Feb, [facility] [address] [id number] [address] [place] [address], [place] [address] Jan, [facility] [address] [id number] [address] [place] [address], [place] [address] Jan, [facility] [address] [id number] [address] [place] [address], [place] [address] 05 Jan, 2013 [facility] [address] [id number] [address] [place] [address], [place] [address] Jan, [facility] [address] [id number] [address] [place] [address], [place] [address] Nov, [facility] [address] [id number] [address] [place] [address] Oct, [facility] [address] [id number] [address] [place] [address] Sep, [facility] [address] [id number] [address] [place] [address] Aug, [facility] [address] [id number] [address] [place] [address] Jan, [facility] [address] [id number] [address] [place] [address] Dec, [facility] [address] [id number] [address] [place] [address] Dec, [facility] [address] [facility] [id number] [address] [place] [address] Jan, [facility] [address] [facility] [id number] [address] [place] [address] Nov, IMMUNIZATIONS No Known Immunizations SOCIAL HISTORY Never Assessed REASON FOR VISIT EMR-[facility] PLAN OF CARE [...]
--- OUTSIDE RECORDS SUMMARY | 2019-08-15 03:24 | XMS REPORT ---
Author Author Remedios CHAPPELL Organization [employer] Address Unknown Phone Unavailable Care Team Providers Care Aquaculturist Name Role Phone RE CHAPPELL Unavailable Allergies No Known Allergies Problems Problem Type Condition Code Onset Dates Condition Statu s Problem Chest pain, unspecified R07.9 Acti ve Problem Other hemorrhoids K64.8 Active Problem Desire for Z31.9 Active Problem History of bloody stools Z87.19 Act lizzette Problem Genital herpes, unspecified A60.00 Active Problem Pleurisy without mention of effusion or current tuberc ulosis R09.1 Active Problem Migraine with aura and without status mi grainosus, not intractable G43.109 Active Problem History of abnormal cervical Pap smear Z87.898 Active Medications No Known Medications Results No Known Results Summary Purpose [employer] Submission
--- OUTSIDE RECORDS SUMMARY | 2019-08-15 03:24 | XMS REPORT ---
Author Author Remedios NAVA Organization [employer] Address Unknown Phone Unavailable Care Team Providers Care Quill Buncher And Sorter Name Role Phone JEANNE NAVA Unavailable Allergies No Known Allergies Problems Problem Type Condition ICD-9 Code Onset Dates Condition Statu s Problem Urinary tract infection, site not specified 599.0 Active Problem Unspecified genital herpes 054.10 A ctive Problem Other specified personal history presenting hazards to health V15.89 Active Problem Pleurisy without mention of effusion or current tuberc ulosis 511.0 Active Problem Chest pain, unspecified 786.50 Acti ve Problem Unspecified breast screening V76.10 Active Problem Screening for malignant neoplasm of the cervix V76.2 Active Medications Medication Code System Code Instructions Start Date End Date Status Dosage Diflucan [facility] [address]-30 150 MG Orally Once a day Nov 13, 2014 1 tablet Results No Known Results Summary Purpose [employer] Submission
--- OUTSIDE RECORDS SUMMARY | 2019-08-15 03:24 | XMS REPORT ---
Author Author Remedios PONCETA Organization [facility] Address [address] [place] [address] Care Team Providers Care Admitting Representative Name Role Phone PAUL PONCETA Unavailable PROBLEMS Type Condition ICD9-CM Code SZL50-LU Code Onset Dates Condition S tatus SNOMED Code Problem Dysthymia F34.1 Active 57234303 Problem Migraine with aura and without status migrainosu s, not intractable G43.109 Active 9977481 ALLERGIES Substance Reaction Event Type Date Status Ibuprofen hives Drug Allergy Jan, Active ENCOUNTERS Encounter Location Date Diagnosis [facility] [address] [address] Jan, Dysthymia F34.1 ; Cervicalgi a M54.2 and Family history of systemic lupus erythematosus Z82.69 [facility] [address] [address] Nov, Dysthymia F34.1 ; Migraine w ith aura and without status migrainosus, not intractable G43.109 ; Screening for diabetes mellitus Z13.1 ; Screening for thyroid disorder Z13.29 ; Screening, iron deficiency anemia Z13.0 and Screening for hyperlipidemia Z13.220 [facility] [address] [address] Mar, Pharyngitis J02.9 and Bronch itis J40 [facility] [address] [address] Mar, Hematochezia K92.1 and Abdom inal pain R10.9 [facility] [address] [address] Mar, [facility] [address] [address] 30 Feb, 2015 Well woman exam Z01.419 [...] Trichomonas infection A59.9 and Yeast infection B37.9 [facility] [address] [id number] [address] [place] [id number] 16 Feb, 2015 Encounter for dental examina tion Z01.20 and Dental caries K02.9 [facility] [address] [facility] [id number] [address] [place] [address] 17 Nov, 2014 Dysuria 788.1 and UTI (urina ry tract infection) 599.0 [place] [address] [facility] [id number] [address] [place] [address] 08 Nov, 2014 [facility] [address] [facility] [id number] [address] [place] [address] 04 Nov, 2014 Routine gynecological examin ation V72.31 ; Breast cancer screening V76.10 ; Screening examination for STD (sexually transmitted disease) V74.5 and Trichomonas infection 131.9 [place] [address] [facility] [id number] [address] [place] [address] 14 Jun, 2014 [facility] [address] [facility] [id number] [address] [place] [address] Jun, [facility] [address] [facility] [id number] [address] [place] [address] Oct, [facility] [address] [facility] [id number] [address] [place] [address] Oct, [place] [address] [place] [id number] [address] [place] [address] Oct, [facility] [address] [id number] [address] [place] [address], [place] [address] Oct, [facility] [address] [id number] [address] [place] [address], [place] [address] Oct, [facility] [address] [id number] [address] [place] [address], [place] [address] Oct, [facility] [address] [id number] [address] [place] [address], [place] [address] Oct, [facility] [address] [id number] [address] [place] [address], [place] [address] Oct, [facility] [address] [id number] [address] [place] [address], [place] [address] Oct, [facility] [address] [id number] [address] [place] [address], [place] [address] Jun, [facility] [address] [id number] [address] [place] [address], [place] [address] Jun, [facility] [address] [id number] [address] [place] [address], [place] [address] Jun, [facility] [address] [id number] [address] [place] [address], [place] [address] May, [facility] [address] [id number] [address] [place] [address], [place] [address] Feb, [facility] [address] [id number] [address] [place] [address], [place] [address] Feb, [facility] [address] [id number] [address] [place] [address], [place] [address] Jan, [facility] [address] [id number] [address] [place] [address], [place] [address] Jan, [facility] [address] [id number] [address] [place] [address], [place] [address] Jan, [facility] [address] [id number] [address] [place] [address] [address] Jan, [facility] [address] [id number] [address] [place] [address] Nov, [facility] [address] [id number] [address] [place] [address] Oct, [facility] [address] [id number] [address] [place] [address] Sep, [facility] [address] [id number] [address] [place] [address] Aug, [facility] [address] [id number] [address] [place] [address] Jan, [facility] [address] [id number] [address] [place] [address] Dec, [facility] [address] [id number] [address] [place] [address] Dec, [facility] [address] [id number] [address] [place] [address] Jan, [facility] [address] [id number] [address] [place] [address] Nov, IMMUNIZATIONS No Known Immunizations SOCIAL HISTORY Never Assessed REASON FOR VISIT Anxiety / Migraine f/u, needing medications refilled and is needing something to help her sleep Benita Recinos MA PLAN OF CARE Activity Details Follow Up 3 Months Reason:depression VITAL SIGNS Height 68 in 2018-01-21 Weight 113.2 lbs 2018-01-21 Temperature 97.1 degrees Fahrenheit 2018-01-21 Heart Rate 61 bpm 2018-01-21 Respiratory Rate 20 2018-01-21 BMI 17.21 kg/m2 2018-01-21 Blood pressure systolic 118 mmHg 2018-01-21 Blood pressure diastolic 62 mmHg 2018-01-21 MEDICATIONS Medication Instructions Dosage Frequency Start Date End Date Duration S tatus Propranolol HCl 10 mg Orally 2 times a day 1 tablet on an empty stomac h 12h 30 Active Cyclobenzaprine HCl 5 mg Orally Three times a day 1 tablet as neede d 8h Jan, Active Prozac 20 mg Orally Once a day 2 capsule 24h 20 Nov, 2017 30 day(s) Active RESULTS No Results PROCEDURES Procedure Date Ordered Result Body Site ANTINUCLEAR ANTIBODIES Jan 21, 2018 RBC SED RATE, AUTOMATED Jan 21, 2018 VENIPUNCT, ROUTINE* Jan 21, 2018 INSTRUCTIONS MEDICATIONS ADMINISTERED No Known Medications MEDICAL [...]
--- OUTSIDE RECORDS SUMMARY | 2019-08-15 03:24 | XMS REPORT ---
Author Author Remedios ROWELL [facility] [employer] Address Unknown Phone Unavailable Care Team Providers Care Assistant Director Of Plant Operations Name Role Phone ADRIANA ROWELL CP Unavailable Allergies, Adverse Reactions, Alerts Substance Reaction Event Type Ibuprofen hives Drug Allergy Problems Problem Type Condition ICD-9 Code Onset Dates Condition Statu s Assessment Dysuria 788.1 Active Assessment UTI (urinary tract infection) 599.0 Active Problem Urinary tract infection, site not specified [...] Instructions Start Date End Date Status Dosage Acyclovir [facility] [address]-74 400 mg Oct 16, 2013 ta ke 1 tablet (400 mg) by oral route 2 times per day Pyridium [facility] [address]-19 100 MG Orally Three times a day S ept 2014Nov 24, 2014 1 tablet after meals Benadryl [facility] [address]-63 25 MG Orally every 6 hrs 1 capsule as needed Bactrim DS [facility] [address]-20 800-160 MG Orally 2 times a day S ept 2014Nov 29, 2014 1 tablet Procedures Procedure Coding System Code Date URINALYSIS, AUTO, W/O SCOPE CPT-4 31109 Nov 22, 2014 Office Visit, Est Pt., Level 3 CPT-4 67918 S ept 2014 URINE CULTURE/COLONY COUNT CPT-4 10488 Nov 22, 2014 Vital Signs Date/Time: Nov 22, 2014 Temperature 97.9 F Weight 134 lbs Height 68 in BMI 20.37 Index Blood Pressure Diastolic 62 mmHg Blood Pressure Systolic 102 mmHg Cardiac Monitoring Heart Rate 70 bpm Results Name Result Date Reference Range Unit Abnormali ty Flag UA W/CULTURE IF INDICATED (IN HOUSE) CULTURE, URINE Summary Purpose eClinicalWorks Submission
--- OUTSIDE RECORDS SUMMARY | 2019-08-15 03:24 | XMS REPORT ---
Author Author Remedios Alonzo Doctor Organization [facility] Address Unknown Phone Unavailable Care Team Providers Care Editor At Large Name Role Phone Migration, Doctor Unavailable Unavailable PROBLEMS Type Condition ICD9-CM Code YET11-WH Code Onset Dates Condition S tatus SNOMED Code Problem Migraine with aura and without status migrainosu s, not intractable G43.109 Active 9631186 Problem Dysthymia F34.1 Active 04865523 ALLERGIES No Information ENCOUNTERS Encounter Location Date Diagnosis [place] [address] [address] Aug, Dysthymia F34.[address] [address] Jan, Dysthymia F34.1 ; Cervicalgi a M54.2 and Family history of systemic lupus erythematosus Z82.69 [place] [address] [address] Nov, Dysthymia F34.1 ; Migraine w ith aura and without status migrainosus, not intractable G43.109 ; Screening for diabetes mellitus Z13.1 ; Screening for thyroid disorder Z13.29 ; Screening, iron deficiency anemia Z13.0 and Screening for hyperlipidemia Z13.220 [facility] [address] [address] Mar, Pharyngitis J02.9 and Bronch itis J40 [address] [address] Mar, Hematochezia K92.1 and Abdom inal pain R10.9 [facility] [address] [address] Mar, [place] [address] [address] 30 Feb, 2015 Well woman exam Z01.419 [...] Trichomonas infection A59.9 and Yeast infection B37.9 [facility] [address] [id number] [address] [place] [id number] 16 Feb, 2015 Encounter for dental examina tion Z01.20 and Dental caries K02.9 [facility] [address] [facility] [id number] [address] [place] [address] 17 Nov, 2014 Dysuria 788.1 and UTI (urina ry tract infection) 599.0 [place] [address] [address] [facility] [id number] [address] [place] [address] 08 Nov, 2014 [facility] [address] [facility] [id number] [address] [place] [address] 04 Nov, 2014 Routine gynecological examin ation V72.31 ; Breast cancer screening V76.10 ; Screening examination for STD (sexually transmitted disease) V74.5 and Trichomonas infection 131.9 [place] [address] [address] [facility] [id number] [address] [place] [address] 14 Jun, 2014 [facility] [address] [facility] [id number] [address] [place] [address] Jun, [facility] [address] [facility] [id number] [address] [place] [address] Oct, [facility] [address] [facility] [id number] [address] [place] [address] Oct, [place] [address] [place] [id number] [address] [place] [address] Oct, [facility] [address] [id number] [address] [place] [address], [place] [address] Oct, [facility] [address] [id number] [address] [place] [address], [place] [address] Oct, [facility] [address] [id number] [address] [place] [address], [place] [address] Oct, [facility] [address] [id number] [address] [place] [address], [place] [address] Oct, [facility] [address] [id number] [address] [place] [address], [place] [address] Oct, [facility] [address] [id number] [address] [place] [address], [place] [address] Oct, [facility] [address] [id number] [address] [place] [address], [place] [address] Jun, [facility] [address] [id number] [address] [place] [address], [place] [address] Jun, [facility] [address] [id number] [address] [place] [address], [place] [address] Jun, [facility] [address] [id number] [address] [place] [address], [place] [address] May, [facility] [address] [id number] [address] [place] [address], [place] [address] Feb, [facility] [address] [id number] [address] [place] [address], [place] [address] Feb, [facility] [address] [id number] [address] [place] [address], [place] [address] Jan, [facility] [address] [id number] [address] [place] [address], [place] [address] Jan, [facility] [address] [id number] [address] [place] [address], [place] [address] Jan, [facility] [address] [id number] [address] [place] [address] [address] Jan, [facility] [address] [id number] [address] [place] [address] Nov, [facility] [address] [id number] [address] [place] [address] Oct, [facility] [address] [id number] [address] [place] [address] Sep, [facility] [address] [id number] [address] [place] [address] Aug, [facility] [address] [id number] [address] [place] [address] Jan, [facility] [address] [id number] [address] [place] [address] Dec, [facility] [address] [facility] [id number] [address] [place] [address] Dec, [facility] [address] [id number] [address] [place] [address] Jan, [facility] [address] [facility] [id number] [address] [place] [address] Nov, IMMUNIZATIONS No Known Immunizations SOCIAL HISTORY Never Assessed REASON FOR VISIT PLAN OF CARE VITAL SIGNS MEDICATIONS Unknown Medications RESULTS No Results PROCEDURES [...]
--- OUTSIDE RECORDS SUMMARY | 2019-08-15 03:24 | XMS REPORT ---
Author Author Remedios ORR Organization [employer] Address Unknown Phone Unavailable Care Team Providers Care Furnace Mechanic Helper Name Role Phone JENNA ORR CP Unavailable Allergies, Adverse Reactions, Alerts Substance Reaction Event Type Ibuprofen hives Drug Allergy Problems Problem Type Condition Code Onset Dates Condition Statu s Problem Pleurisy without mention of effusion or current tuberc ulosis R09.1 Active Problem Chest pain, unspecified R07.9 Acti ve Problem Genital herpes, unspecified A60.00 Active Assessment Encounter for dental examination Z01.20 Active Assessment Dental caries K02.9 Active Medications No Known Medications Procedures Procedure Coding System Code Date INTRAORL-PERIAPICAL 1 FILM 17004 CPT-4 D0220 Feb 20, 2015 EXTRAC ERUPTED TOOTH/EXPOSED ROOT CPT-4 D7140 Feb 20, 2015 LTD ORAL EVALUATION - PROBLEM FOCUS CPT-4 D0140 Feb 20, 2015 Vital Signs Date/Time: Feb 20, 2015 Blood Pressure Diastolic 59 mmHg Blood Pressure Systolic 113 mmHg Height 68 in Results No Known Results Summary Purpose [employer] Submission
--- OUTSIDE RECORDS SUMMARY | 2019-08-15 03:24 | XMS REPORT ---
Author Author Remedios Alonzo Doctor Organization [facility] Address Unknown Phone Unavailable Care Team Providers Care Calculation Reviewer Name Role Phone Migration, Doctor Unavailable Unavailable PROBLEMS Type Condition ICD9-CM Code NCG75-PI Code Onset Dates Condition S tatus SNOMED Code Problem Migraine with aura and without status migrainosu s, not intractable G43.109 Active 5142557 Problem Dysthymia F34.1 Active 65626973 ALLERGIES No Information ENCOUNTERS Encounter Location Date Diagnosis [address] [address] Jan, Dysthymia F34.1 ; Cervicalgi a M54.2 and Family history of systemic lupus erythematosus Z82.[address] [address] 20 Nov, 2017 Dysthymia F34.1 ; Migraine w ith aura and without status migrainosus, not intractable G43.109 ; Screening for diabetes mellitus Z13.1 ; Screening for thyroid disorder Z13.29 ; Screening, iron deficiency anemia Z13.0 and Screening for hyperlipidemia Z13.220 [facility] [address] [address] Mar, Pharyngitis J02.9 and Bronch itis J40 [address] [address] Mar, Hematochezia K92.1 and Abdom inal pain R10.[address] [address] Mar, [address] [address] Feb, Well woman exam Z01.419 ; Ro [...] Trichomonas infection A59.9 and Yeast infection B37.9 [facility] [address] [id number] [address] [place] [id number] 16 Feb, 2015 Encounter for dental examina tion Z01.20 and Dental caries K02.9 [facility] [address] [facility] [id number] [address] [place] [address] 17 Nov, 2014 Dysuria 788.1 and UTI (urina ry tract infection) 599.0 [facility] [address] [facility] [id number] [address] [place] [address] 08 Nov, 2014 [facility] [address] [facility] [id number] [address] [place] [address] 04 Nov, 2014 Routine gynecological examin ation V72.31 ; Breast cancer screening V76.10 ; Screening examination for STD (sexually transmitted disease) V74.5 and Trichomonas infection 131.9 [facility] [address] [facility] [id number] [address] [place] [address] 14 Jun, 2014 [facility] [address] [facility] [id number] [address] [place] [address] Jun, [facility] [address] [id number] [address] [place] [address] Oct, [facility] [address] [id number] [address] [place] [address] Oct, [facility] [address] [facility] [id number] [address] [place] [address] Oct, [facility] [address] [facility] [id number] [address] [place] [address] Oct, [facility] [address] [id number] [address] [place] [address], [place] [address] 14 Oct, 2013 [facility] [address] [id number] [address] [place] [address], [place] [address] Oct, [facility] [address] [id number] [address] [place] [address], [place] [address] Oct, [facility] [address] [id number] [address] [place] [address], [place] [address] Oct, [facility] [address] [id number] [address] [place] [address], [place] [address] Oct, [facility] [address] [id number] [address] [place] [address], [place] [address] Jun, [facility] [address] [id number] [address] [place] [address], [place] [address] Jun, [facility] [address] [id number] [address] [place] [address], [place] [address] Jun, [facility] [address] [id number] [address] [place] [address], [place] [address] May, [facility] [address] [id number] [address] [place] [address], [place] [address] Feb, [facility] [address] [id number] [address] [place] [address], [place] [address] Feb, [facility] [address] [id number] [address] [place] [address], [place] [address] Jan, [facility] [address] [id number] [address] [place] [address], [place] [address] Jan, [facility] [address] [id number] [address] [place] [address], [place] [address] 05 Jan, 2013 [facility] [address] [id number] [address] [place] [address], [place] [address] Jan, [facility] [address] [id number] [address] [place] [address], [place] [address] Nov, [facility] [address] [id number] [address] [place] [address] Oct, [facility] [address] [id number] [address] [place] [address] Sep, [facility] [address] [id number] [address] [place] [address] Aug, [facility] [address] [id number] [address] [place] [address] Jan, [facility] [address] [id number] [address] [place] [address] Dec, [facility] [address] [id number] [address] [place] [address] Dec, [facility] [address] [facility] [id number] [address] [place] [address] Jan, [facility] [address] [facility] [id number] [address] [place] [address] Nov, IMMUNIZATIONS No Known Immunizations SOCIAL HISTORY Never Assessed REASON FOR VISIT EMR-[facility] PLAN OF CARE VITAL SIGNS MEDICATIONS No [...]
--- OUTSIDE RECORDS SUMMARY | 2019-08-15 03:24 | XMS REPORT ---
Author Author Remedios Burciaga Organization [facility] Address [address] [facility] Care Team Providers Care Aviation Electrician Name Role Phone Donnell Burciaga Unavailable PROBLEMS Unknown Problems ALLERGIES Unknown Allergies SOCIAL HISTORY No smoking Hx information available PLAN OF CARE VITAL SIGNS MEDICATIONS Unknown Medications RESULTS No Results PROCEDURES Procedure Date Ordered Related Diagnosis Body Site CASE [facility] 15 MIN September 09, 2016 IMMUNIZATIONS No Known Immunizations
--- OUTSIDE RECORDS SUMMARY | 2019-08-15 03:24 | XMS REPORT ---
Author Author Remedios Alonzo Doctor Organization [facility] Address Unknown Phone Unavailable Care Team Providers Care Tile Layer Supervisor Name Role Phone Migration, Doctor Unavailable Unavailable PROBLEMS Type Condition ICD9-CM Code KRO89-FQ Code Onset Dates Condition S tatus SNOMED Code Problem Migraine with aura and without status migrainosu s, not intractable G43.109 Active 6623066 Problem Dysthymia F34.1 Active 47197571 ALLERGIES No Information ENCOUNTERS Encounter Location Date Diagnosis [address] [address] Jan, Dysthymia F34.1 ; Cervicalgi a M54.2 and Family history of systemic lupus erythematosus Z82.[address] [address] Nov, Dysthymia F34.1 ; Migraine w ith aura and without status migrainosus, not intractable G43.109 ; Screening for diabetes mellitus Z13.1 ; Screening for thyroid disorder Z13.29 ; Screening, iron deficiency anemia Z13.0 and Screening for hyperlipidemia Z13.220 [facility] [address] [address] Mar, Pharyngitis J02.9 and Bronch itis J40 [address] [address] Mar, Hematochezia K92.1 and Abdom inal pain R10.[address] [address] Mar, [address] [address] Feb, Well woman exam Z01.419 ; Ro [...] [facility] [address] [id number] [address] [place] [id number] 16 Feb, 2015 Encounter for dental examina tion Z01.20 and Dental caries K02.9 [facility] [address] [facility] [id number] [address] [place] [address] 17 Nov, 2014 Dysuria 788.1 and UTI (urina ry tract infection) 599.0 [facility] [address] [facility] [id number] [address] [place] [address] 08 Nov, 2014 [facility] [address] [facility] [id number] [address] [place] [address] 04 Nov, 2014 Routine gynecological examin ation V72.31 ; Breast cancer screening V76.10 ; Screening examination for STD (sexually transmitted disease) V74.5 and Trichomonas infection 131.9 [facility] [address] [facility] [id number] [address] [place] [phone] 14 Jun, 2014 [facility] [address] [facility] [id number] [address] [place] [address] Jun, [facility] [address] [id number] [address] [place] [address] Oct, [facility] [address] [id number] [address] [place] [address] Oct, [facility] [address] [facility] [id number] [address] [place] [address] Oct, [facility] [address] [facility] [id number] [address] [place] [address] Oct, [facility] [address] [id number] [address] [place] [address], [place] [address] 14 Oct, 2013 [facility] [address] [id number] [address] [place] [address], [place] [address] Oct, [facility] [address] [id number] [address] [place] [address], [place] [address] Oct, [facility] [address] [id number] [address] [place] [address], [place] [address] Oct, [facility] [address] [id number] [address] [place] [address], [place] [address] Oct, [facility] [address] [id number] [address] [place] [address], [place] [address] Jun, [facility] [address] [id number] [address] [place] [address], [place] [address] Jun, [facility] [address] [id number] [address] [place] [address], [place] [address] Jun, [facility] [address] [id number] [address] [place] [address], [place] [address] May, [facility] [address] [id number] [address] [place] [address], [place] [address] Feb, [facility] [address] [id number] [address] [place] [address], [place] [address] Feb, [facility] [address] [id number] [address] [place] [address], [place] [address] Jan, [facility] [address] [id number] [address] [place] [address], [place] [address] Jan, [facility] [address] [id number] [address] [place] [address], [place] [address] 05 Jan, 2013 [facility] [address] [id number] [address] [place] [address], [place] [address] Jan, [facility] [address] [id number] [address] [place] [address], [place] [address] Nov, [facility] [address] [id number] [address] [place] [address] Oct, [facility] [address] [id number] [address] [place] [address] Sep, [facility] [address] [id number] [address] [place] [address] Aug, [facility] [address] [id number] [address] [place] [address] Jan, [facility] [address] [id number] [address] [place] [address] Dec, [facility] [address] [id number] [address] [place] [address] Dec, [facility] [address] [id number] [address] [place] [address] Jan, [facility] [address] [id number] [address] [place] [address] Nov, IMMUNIZATIONS No Known Immunizations SOCIAL HISTORY Never Assessed REASON FOR VISIT [facility] PLAN OF CARE VITAL SIGNS MEDICATIONS No Known Medications RESULTS No Results PROCEDURES Procedure Date Ordered Result Body Site CYTOPATH C/V AUTO FLUID REDO Jan 13, 2013 INSTRUCTIONS MEDICATIONS ADMINISTERED No Known Medications [...]
--- OUTSIDE RECORDS SUMMARY | 2019-08-15 03:25 | XMS REPORT ---
Author Author Remedios CHAPPELL [facility] [employer] Address Unknown Phone Unavailable Care Team Providers Care General Manager [employer] Data Cloud Name Role Phone RE CHAPPELL Unavailable Allergies, Adverse Reactions, Alerts Substance Reaction Event Type Ibuprofen hives Drug Allergy Problems Problem Type Condition Code Onset Dates Condition Statu s Assessment Routine screening for STI (sexually transmitted infect ion) Z11.3 Active Problem Chest pain, unspecified R07.9 Acti ve Assessment Well woman exam Z01.419 Active Problem Other hemorrhoids K64.8 Active Problem Desire for Z31.9 Active Problem History of bloody stools Z87.19 Act lizzetet Problem Genital herpes, unspecified A60.00 Active Problem Pleurisy without mention of effusion or current tuberc ulosis R09.1 Active Problem Migraine with aura and without status mi grainosus, not intractable G43.109 Active Problem History of abnormal cervical Pap smear Z87.898 Active Assessment Unprotected sexual intercourse Z72.51 Active Assessment History of abnormal cervical Pap smear Z87.898 Active Assessment Yeast infection B37.9 Active Assessment Trichomonas infection A59.9 Active Assessment Other hemorrhoids K64.8 Active Assessment History of bloody stools Z87.19 Act lizzette Assessment Migraine with aura and without status mi grainosus, not intractable G43.109 Active Assessment Irregular menses N92.6 Active Assessment Desire for Z31.9 Active Assessment Vaginal discharge N89.8 Active Medications Medication Code System Code Instructions Start Date End Date Status Dosage Tinidazole [facility] [address]-05 500 MG Orally Once a day Mar 06, 2015 4 tablets with food Acyclovir [facility] [address]-99 400 mg Oct 16, 2013 ta ke 1 tablet (400 mg) by oral route 2 times per day Diflucan [facility] [address]-14 150 MG Orally Repeat dose in 72 h ours Mar 06, 2015 Mar 08, 2015 1 tablet Procedures Procedure Coding System Code Date COMPREHEN METABOLIC PANEL CPT-4 08927 Feb TRICHOMONAS ASSAY W/OPTIC CPT-4 84188 Feb COMPLETE CBC W/AUTO DIFF WBC CPT-4 95868 Mar 06, 2015 VENIPUNCT, ROUTINE* CPT-4 22883 Mar 06, 2015 URINE TEST CPT-4 02871 Mar 06, 201 5 CULTURE, BACTERIA, OTHER CPT-4 38975 Mar 06, 2015 Preventive Care Est Pt. Age 18-39 CPT-4 24053 Mar 06, 2015 ACUTE HEPATITIS PANEL CPT-4 15951 Mar 06, 20 15 Vital Signs Date/Time: Mar 06, 2015 Temperature 97.2 F Weight 137.7 lbs Height 68 in BMI 20.93 Index Blood Pressure Diastolic 68 mmHg Blood Pressure Systolic 114 mmHg Cardiac Monitoring Heart Rate 74 bpm Results Name Result Date Reference Range Unit Abnormali ty Flag ROUTINE VENIPUNCTURE TEST, URINE (IN HOUSE) ----RESULTS Negative [id number] ----Lot # [id number] ----Control + [id number] ----Exp date 20150306 TRICHOMONAS (IN HOUSE) ----Exp date [id number] ----Control + [id number] ----Lot # [id number] ----TRICHOMONAS positive [id number] Summary Purpose eClinicalWorks Submission
--- OUTSIDE RECORDS SUMMARY | 2019-08-15 03:25 | XMS REPORT | Continuity of Care Document ---
Author Organization Unknown Address Unknown Phone Unavailable Allergies Active Description Code Type Severity Reaction Onset Reported/Identified Relationship to Patient Clinical Status Yes No Known Drug Allergies [id number] Drug Allergy Unknown N/A 10/28/2007 Yes NKDA NKDA Mild N/A 08/14/2008 Medications There is no data. Problems Date Dx Coded Attending Type Code Diagnosis Diagnosed By 2007 JANNETTE GODFREY APRN A 078.11 [facility] 2007 KASSANDRA CONTRERAS APRN S 078.11 [facility] 2007 MEAGHAN ARGUELLO MD 078.1 1 [facility] 2007 NICOLASA GODFREY APRNIDI A 078.11 [facility] 10/26/2007 BEKAH PICKARD JANNETTE A 62 6.4 IRREGULAR MENSTRUAL CYCLE 10/26/2007 BEKAH PICKARD JANNETTE A V58.69 MEDICATION HIGH RISK 10/26/2007 NICOLASA GODFREY APRNIDI A V72.31 ROUTINE PELVIC EXAM 10/26/2007 KASSANDRA CONTRERAS APRN 626.4 IRREGULAR MENSTRUAL CYCLE 10/26/2007 KASSANDRA CONTRERAS APRN V58.69 MEDICATION HIGH RISK 10/26/2007 KASSANDRA CONTRERAS APRN S V72.31 ROUTINE PELVIC EXAM 10/26/2007 MEAGHAN ARGUELLO MD 626.4 IRREGULAR MENSTRUAL CYCLE 10/26/2007 MEAGHAN ARGUELLO MD V58.6 9 MEDICATION HIGH RISK 10/26/2007 MEAGHAN ARGUELLO MD V72.3 1 ROUTINE PELVIC EXAM 10/26/2007 NICOLASA GODFREY APRNIDI A 62 6.4 IRREGULAR MENSTRUAL CYCLE 10/26/2007 NICOLASA GODFREY APRNIDI A V58.69 MEDICATION HIGH RISK 10/26/2007 NICOLASA GODFREY APRNIDI A V72.31 ROUTINE PELVIC EXAM 03/12/2008 JANNETTE GODFREY APRN A 73 9.4 NONALLOPATHIC LESIONS OF SACRAL REGION NOT ELSEWHERE CLASSIFIED 03/12/2008 KASSANDRA CONTRERAS APRN 739.4 NONALLOPATHIC LESIONS OF SACRAL REGION NOT ELSEWHERE C LASSIFIED 03/12/2008 MEAGHAN ARGUELLO MD 739.4 NONALLOPATHIC LESIONS OF SACRAL REGION NOT ELSEWHERE CLASSIFIED 03/12/2008 JANNETTE GODFREY APRN A 73 9.4 NONALLOPATHIC LESIONS OF SACRAL REGION NOT ELSEWHERE CLASSIFIED 11/08/2008 JANNETTE GODFREY APRN A 62 5.9 pelvic pain 11/08/2008 KASSANDRA CONTRERAS APRN S 625.9 pelvic pain 11/08/2008 MEAGHAN ARGUELLO MD 625.9 pelvic pain 11/08/2008 JANNETTE GODFREY APRN A 62 5.9 pelvic pain 11/15/2008 JANNETTE GODFREY APRN A 11 2.1 CANDIDIASIS OF VULVA AND VAGINA 11/15/2008 JANNETTE GODFREY APRN A 535.00 ACUTE GASTRITIS (WITHOUT HEMORRHAGE) 11/15/2008 KASSANDRA CONTRERAS APRN S 112.1 CANDIDIASIS OF VULVA AND VAGINA 11/15/2008 KASSANDRA CONTRERAS APRN S 535.00 ACUTE GASTRITIS (WITHOUT HEMORRHAGE) 11/15/2008 MEAGHAN ARGUELLO MD 112.1 CANDIDIASIS OF VULVA AND VAGINA 11/15/2008 MEAGHAN ARGUELLO MD 535.0 0 ACUTE GASTRITIS (WITHOUT HEMORRHAGE) 11/15/2008 JANNETTE GODFREY APRN A 11 2.1 CANDIDIASIS OF VULVA AND VAGINA 11/15/2008 JANNETTE GODFREY APRN A 535.00 ACUTE GASTRITIS (WITHOUT HEMORRHAGE) 05/13/2009 JANNETTE GODFREY APRN A 07 9.4 HUMAN PAPILLOMA VIRUS INFECTION 05/13/2009 JANNETTE GODFREY APRN A 795.01 Cerv Pap Smear (+) Atyp Squamous Cells Undetermined Si gnif 05/13/2009 JANNETTE GODFREY APRN V15.82 tobacco use 05/13/2009 JANNETTE GODFREY APRN A V7 4.5 visit for: screening exam bact/spirochetal venereal disease 05/13/2009 KASSANDRA CONTRERAS APRN S 079.4 HUMAN PAPILLOMA VIRUS INFECTION 05/13/2009 KASSANDRA CONTRERAS APRN S 795.01 Cerv Pap Smear (+) Atyp Squamous Cells Undetermined Si gnif 05/13/2009 KASSANDRA CONTRERAS APRN S V15.82 tobacco use 05/13/2009 KASSANDRA CONTRERAS APRN S V74.5 visit for: screening exam bact/spirochetal venereal di sease 05/13/2009 MEAGHAN ARGUELLO MD 079.4 HUMAN PAPILLOMA VIRUS INFECTION 05/13/2009 MEAGHAN ARGUELLO MD 795.0 1 Cerv Pap Smear (+) Atyp Squamous Cells Undetermined Signif 05/13/2009 MEAGHAN ARGUELLO MD V15.8 2 tobacco use 05/13/2009 MEAGHAN ARGUELLO MD V74.5 visit for: screening exam bact/spirochetal venereal disease 05/13/2009 JANNETTE GODFREY APRN A 07 9.4 HUMAN PAPILLOMA VIRUS INFECTION 05/13/2009 JANNETTE GODFREY APRN A 795.01 Cerv Pap Smear (+) Atyp Squamous Cells Undetermined Si gnif 05/13/2009 JANNETTE GODFREY APRN A V15.82 tobacco use 05/13/2009 JANNETTE GODFREY APRN A V7 4.5 visit for: screening exam bact/spirochetal venereal disease 09/02/2009 JANNETTE GODFREY APRN A V6 9.2 HIGH-RISK SEXUAL BEHAVIOR 09/02/2009 KASSANDRA CONTRERAS APRN V69.2 HIGH-RISK SEXUAL BEHAVIOR 09/02/2009 MEAGHAN ARGUELLO MD V69.2 HIGH-RISK SEXUAL BEHAVIOR 09/02/2009 JANNETTE GODFREY APRN A V6 9.2 HIGH-RISK SEXUAL BEHAVIOR 12/16/2009 JANNETTE GODFREY APRN A 46 0 ACUTE NASOPHARYNGITIS (COMMON COLD) 12/16/2009 KASSANDRA CONTRERAS APRN 460 ACUTE NASOPHARYNGITIS (COMMON COLD) 12/16/2009 MEAGHAN ARGUELLO MD 460 ACUTE NASOPHARYNGITIS (COMMON COLD) 12/16/2009 JANNETTE GODFREY APRN A 46 0 ACUTE NASOPHARYNGITIS (COMMON COLD) 01/09/2010 JANNETTE GODFREY APRN A 616.10 VAGINITIS 01/09/2010 BEKAH [employer]AREHOUSE DRIVER, JANNETTE A 78 4.0 HEADACHE 01/09/2010 BEKAH PICKARD, JANNETTE A 788.41 URINARY FREQUENCY 01/09/2010 BEKAH PICKARD JANNETTE A V04.81 FLU SHOT 01/09/2010 DIANE MELLY KASSANDRA S 616.10 VAGINITIS 01/09/2010 DIANE SALES WAREHOUSE DRIVER, KASSANDRA S 784.0 HEADACHE 01/09/2010 DIANE RODARTEN, KASSANDRA S 788.41 URINARY FREQUENCY 01/09/2010 DIANE RODARTEJame KASSANDRA S V04.81 FLU SHOT 01/09/2010 MEAGHAN ARGUELLO MD 616.1 0 VAGINITIS 01/09/2010 MEAGHAN ARGUELLO MD 784.0 HEADACHE 01/09/2010 MEAGHAN ARGUELLO MD 788.4 1 URINARY FREQUENCY 01/09/2010 MEAGHAN ARGUELLO MD V04.8 1 FLU SHOT 01/09/2010 BEKAH RODARTEN, JANNETTE A 616.10 VAGINITIS 01/09/2010 BEKAH SAL[employer] W[employer]HOUSE DRIVER, JANNETTE A 78 4.0 HEADACHE 01/09/2010 BEKAH RODARTEN, JANNETTE A 788.41 URINARY FREQUENCY 01/09/2010 BEKAH RODARTENNICOLASAJANNETTE A V04.81 FLU SHOT 11/06/2010 [employer]AH [employer] DRIVER, JANNETTE A 622.11 CERVICAL DYSPLASIA: MILD 11/06/2010 BEKAHBHARATI PICKARD JANNETTE A V65.45 Anticipatory Guidance: Unsafe Sexual Practices 11/06/2010 BRIT CONTRERAS APRNA S 622.11 CERVICAL DYSPLASIA: MILD 11/06/2010 KASSANDRA CONTRERAS APRN S V65.45 Anticipatory Guidance: Unsafe Sexual Practices 11/06/2010 MEAGHAN ARGUELLO MD 622.1 1 CERVICAL DYSPLASIA: MILD 11/06/2010 MEAGHAN ARGUELLO MD V65.4 5 Anticipatory Guidance: Unsafe Sexual Practices 11/06/2010 BEKAHBHARATI PICKARD JANNETTE A 622.11 CERVICAL DYSPLASIA: MILD 11/06/2010 BEKAH PICKARD JANNETTE A V65.45 Anticipatory Guidance: Unsafe Sexual Practices 08/29/2011 NICOLASA GODFREY APRNIDI A 786.50 CHEST PAIN 08/29/2011 TIEN CONTRERAS APRNNDA S 786.50 CHEST PAIN 08/29/2011 MEAGHAN ARGUELLO MD 786.5 0 CHEST PAIN 08/29/2011 JANNETTE GODFREY APRN A 786.50 CHEST PAIN 01/10/2013 JANNETTE GODFREY APRN A 59 9.0 URINARY TRACT INFECTION 01/10/2013 KASSANDRA CONTRERAS APRN S 599.0 URINARY TRACT INFECTION 01/10/2013 MEAGHAN ARGUELLO MD 599.0 URINARY TRACT INFECTION 01/10/2013 JANNETTE GODFREY APRN 59 9.0 URINARY TRACT INFECTION 02/16/2013 KASSANDRA CONTRERAS APRN S 511.0 PLEURISY NOS 02/16/2013 MEAGHAN ARGUELLO MD 511.0 PLEURISY NOS 02/16/2013 JANNETTE GODFREY APRN 51 1.0 PLEURISY NOS 06/08/2013 MEAGHAN ARGUELLO MD V15.8 9 OTHER SPECIFIED PERSONAL HISTORY PRESENTING HAZARDS TO HEALTH 06/08/2013 JANNETTE GODFREY APRN V15.89 OTHER SPECIFIED PERSONAL HISTORY PRESENTING HAZARDS TO HEALTH 10/16/2013 JANNETTE GODFREY APRN 054.10 GENITAL HERPES UNSPECIFIED 10/16/2013 JANNETTE GODFREY APRN V76.10 BREAST CANCER SCREENING 10/16/2013 JANNETTE GODFREY APRN V7 6.2 CERVICAL CANCER SCREENING (PAP SMEAR) 04/14/2019 JAMES PONCE APRN Ot M54 .6 PAIN IN THORACIC SPINE 05/05/2019 JAMES PONCE APRN Ot M54 .6 PAIN IN THORACIC SPINE 05/05/2019 JAMES PONCE APRN Ot M54 .6 PAIN IN THORACIC SPINE 08/15/2019 JAMES PONCE APRN Ot M54 .6 PAIN IN THORACIC SPINE Procedures Code [place] [address] PAP SMEAR 11/06/2011 59196 UA W / CULTURE IF INDICATED 01/10/2013 31615 CULT URE URINE 01/12/2013 15333 GC/C HLAM PROBE (STATE) 10/16/2013 42924 PAP SMEAR 10/16/2013 Q0091 PAP SMEAR OBTAIN SMEAR 10/16/2013 54931 TRIC HOMONAS (IN-HOUSE) 10/16/2013 46992 CULT URE UROGENITAL 10/17/2013 Results Test Result Range TSH - 11/25/17 12:08 TSH 0.65 mIU/L NRG VITAMIN D, 25-H - 11/25/17 12:08 VITAMIN D,25-OH,TOTAL,IA 39 ng/mL 30-10 0 ALIYA - 01/21/18 16:29 ALIYA SCREEN, IFA NEGATIVE NEGATIVE Encounters ACCT No. Visit Date/Time Discharge Status Pt. Type Provider Facility Loc./Unit Complaint [id number] 10/16/2013 15:13:00 10/16/2013 23:59: 59 CLS Outpatient JANNETTE GODFREY APRN [id number] 06/13/2013 15:22:00 06/13/2013 23:59: 59 CLS Outpatient MEAGHAN ARGUELLO MD [id number] 02/16/2013 10:40:00 02/16/2013 23:59: 59 CLS Outpatient KASSANDRA CONTRERAS APRN [id number] 01/10/2013 10:38:00 01/10/2013 23:59: 59 CLS Outpatient JANNETTE GODFREY APRN [id number] 04/13/2019 15:20:00 020 23:59:59 CLS Outpatient JAMES PONCE APRN [facility] RAD PAIN IN THORACIC SPINE [id number] 03/03/2019 10:15:00 019 23:59:59 CLS Preadmit ARAM NAVA [facility] RAD PAIN IN THORACIC SPINE [id number] 12/27/2013 14:51:00 014 23:59:59 CLS Outpatient [id number] 05/30/2013 16:45:00 014 11:34:00 DIS Inpatient [id number] 09/10/2012 02:45:00 013 03:16:00 DIS Emergency [id number] 08/15/2019 02:42:[address] Emergency KATHARINE MAYFIELD, MUNA Houser [facility] ER MIGRAINE [id number] 05/16/2019 15:00:00 05/16/2019 23:59:5 9 CLS Outpatient JAMES PONCE [facility] [id number] 01/21/2018 15:40:00 Document Registration [id number] 11/25/2017 11:20:00 Document Registration
--- OUTSIDE RECORDS SUMMARY | 2019-08-15 03:25 | XMS REPORT ---
Author Author Remedios NAVA Organization [employer] Address Unknown Phone Unavailable Care Team Providers Care Medical Customer Service Representative Name Role Phone JEANNE NAVA CP Unavailable Allergies, Adverse Reactions, Alerts Substance Reaction Event Type Ibuprofen hives Drug Allergy Problems Problem Type Condition ICD-9 Code Onset Dates Condition Statu s Assessment Screening examination for STD (sexually transmitted di sease) V74.5 Active Assessment Routine gynecological examination V72.31 Active Assessment Breast cancer screening V76.10 Acti ve Assessment Trichomonas infection 131.9 Active Problem Urinary tract infection, site not [...] Start Date End Date Status Dosage Acyclovir [facility] [address]-93 400 mg Oct 16, 2013 ta ke 1 tablet (400 mg) by oral route 2 times per day Metronidazole [facility] [address]-96 500 MG Orally Once a day Nov 09 15 4 tablet Benadryl [facility] [address]-94 25 MG Orally every 6 hrs 1 capsule as needed Procedures Procedure Coding System Code Date Preventive Care Est Pt. Age 18-39 CPT-4 31912 Nov 09, 2014 No Charge CPT-4 49874 Nov 09, 2014 TRICHOMONAS VAGIN, DIR PROBE CPT-4 71183 Nov CULTURE, BACTERIA, OTHER CPT-4 19322 Nov Vital Signs Date/Time: Nov 09, 2014 Temperature 97.9 F Weight 137 lbs Height 68 in BMI 20.83 Index Blood Pressure Diastolic 72 mmHg Blood Pressure Systolic 106 mmHg Cardiac Monitoring Heart Rate 72 bpm Results No Known Results Summary Purpose [employer] Submission
--- OUTSIDE RECORDS SUMMARY | 2019-08-15 03:25 | XMS REPORT | Continuity of Care Document ---
Author Author [facility] Organization [facility] Address Unknown Phone Unavailable Care Team Providers Care Video Rental Clerk Name Role Phone [facility] OF Insurance Providers Payer Name Policy Number Subscriber Name Relationship Self Pay Comfort Prater 01 Self / Same As Patient Advance Directives Directive Response Recor ded Date Advance Directives N 08/18 2:48am Health Care Power of Asp Net C Developer N 09/10/12 2:48am Organ Donor Y 09/10/12 2 :48am Problems No Known Problems or Medical conditions. Family History History Response Recorde d Date/Time Hx Family Hypertension Y father 10/28/07 10:20pm Social History History Response Recorde d Date/Time Alcohol Use Occasionally Uses 09/10/12 2:48am Recreational Drug Use N 09/10/12 2:48am Allergies, Adverse Reactions, Alerts Allergen Type Severity Reaction Last Updated No Known Drug Allergies Allergy Unknown 10/28/07 NKDA Allergy Mild 08/14/08 Medications Medication Dose Units Route Sig Qty Days Acetaminophen/Hydrocodone Bitart (Vicodin 5-500 Tablet ) 1 - 2 Each PO Q4HR PRN 10 Naproxen (Naprosyn) 1 Ea ch PO BID PRN 20 [Amoxil] Response Recorded Date/Time Status not known Unknown Results No Known Relevant Diagnostic Tests, Laboratory Data and/or Discharge Summary. Encounters Encounter Location Date/ Time Departed Emergency Room [facility] 09/10/12 2:45am Discharged Inpatient [facility] 12:00am
[2019-08-15] MEDS ORDERED: ACETAMINOPHEN 500 MG TAB (TYLENOL) PO ONE (03:30)
[2019-08-15 04:00] VITALS: BP 109/83
== END 2019-08-15 03:56 | disposition home or self-care (01) ==
LOC: EDUNIT# 02:39 → ER 02:42
DX: G43.909 Migraine, unspecified, not intractable, without status migrainosus (principal); Z79.51 Long term (current) use of inhaled steroids; Z82.49 Family history of ischemic heart disease and other diseases of the circulatory system
CPT/HCPCS: 99284

== ENCOUNTER 2019-09-22 19:50 | Emergency (ER) | payer SELFPAY ==
[~2019-09-22] VITALS: Ht 172.7 cm; Wt 63.5 kg
[2019-09-22 19:57] VITALS: BP 111/73
--- NOTE | 2019-09-22 20:05 | ED Headache ---
General Chief Complaint: Head/Cervical Problems Stated Complaint: MIRGRAINE Nursing Triage Note: PT AMBULATE TO TRIAGE WITH C/O MIGRAIN. PT STATES SHE JUST WANTS A TORADOL SHOT FOR THE PAIN. PT STATES SHE HAS NOT SOUGHT [place] FOR MIGRAIN PAIN FROM A PCP. PT REPORTS THAT SHE NORMALY TAKES BC POWDER BUT HAS BEEN UNABLE TO DO THIS FOR THE LAST COUPLE WEEKS. Nursing Sepsis Screen: No Definite Risk Source: patient Exam Limitations: no limitations History of Present Illness Date Seen by Provider: Sep 22, 2019 Time Seen by Provider: 20:03 Initial Comments To ER with a right retro-orbital migraine that started about 3 PM today. Typical for her previous migraines. Timing/Duration: 1-3 hours Severity/Quality: moderate Location: frontal Prior Headaches/Recent Trauma: occasional headaches Allergies and Home Medications Allergies Coded Allergies: No Known Drug Allergies (Verified , 10/28/07) Uncoded Allergies: NKDA (Allergy, Mild, 08/14/08) Home Medications Acetaminophen/Caffeine 1 Each Tablet, 1-1.5 TAB PO Q6H PRN for HEADACHE, (Reported) TAKES 1 TO 1 & 1/2 TABLETS NEEDED FOR PAIN Azithromycin 250 Mg Tab, PO Z-JUSTIN, (Reported) 2 TABLETS 1ST DAY (NOW), THEN TAKE 1 TABLET DAILY FOR 4 DAYS FILLED 05-29-13 Fluticasone Propionate 16 Gm [place], 2 SPRAYS NS DAILY, (Reported) Ondansetron 4 Mg/Udtablet Tab.rapdis, 4 MG PO Q6H PRN for PRN Nausea Prescribed by: BETTY SHARMA on 06/01/13 1136 Pseudoephedrine Hcl 30 Mg Tab, 60 MG PO Q6H Prescribed by: MEAGHAN ARGUELLO on 06/01/13 0952 Patient Home Medication List Home Medication List Reviewed: Yes Review of Systems Review of Systems Constitutional: see HPI Eyes: No Symptoms Reported Ears, Nose, Mouth, Throat: no symptoms reported Cardiovascular: no symptoms reported Genitourinary: no symptoms reported Musculoskeletal: no symptoms reported Skin: no symptoms reported Psychiatric/Neurological: See HPI, Headache Past [id number] Hx Patient Social History Recent Foreign Travel: No Contact w/Someone Who Travel: No Recent Infectious Disease Expo: No Recent Hopitalizations: No Immunizations Up To Date Date of Influenza Vaccine: Apr 01, 2013 Past Medical History Surgeries: No Respiratory: No Cardiac: No Neurological: Yes Headaches /Migraines Reproductive Disorders: No Genitourinary: No Gastrointestinal: No Musculoskeletal: No Endocrine: No HEENT: No Cancer: No Psychosocial: No Integumentary: No Blood Disorders: No Family Medical History Family history: Hypertension 03 FATHER Family history: Thyroid disorder 03 FATHER History of - respiratory disease 03 FATHER (COPD) No Family History of: Abdominal aortic aneurysm Domingo's disease Alcoholism Aphasia Cancer Cancer of colon Cataract Chest pain Congenital heart disease Congestive heart failure Cystic fibrosis Dementia Dysphagia Family history: Allergy Family history: Alzheimer's disease Family history: Arthritis Family history: Asthma Family history: Breast disease Family history: Cardiovascular disease Family history: Coronary thrombosis Family history: Diabetes mellitus Family history: Gastrointestinal disease Family history: Glaucoma Family history: Osteoporosis Headache Hearing loss Heart disease Hereditary disease History of - anemia History of - disorder History of drug abuse Human immunodeficiency virus (HIV) seropositivity Hypercholesterolemia Infertile Kidney disease Malignant neoplasm of lung Myocardial infarction Parkinson's disease Prostate cancer Psychotic disorder Seizure disorder Stroke Tuberculosis Visual impairment Physical Exam Vital Signs Vital Signs - First Documented 09/22/19 19:57 Temp 36.8 Pulse 77 Resp 17 B/P (MAP) 111/73 (86) O2 Delivery Room Air Capillary Refill : Less Than 3 Seconds Height, Weight, BMI Height: 5'8.00" Weight: 131lbs. oz. 59.886724aq; 21.00 BMI Method:Stated General Appearance: WD/WN, no apparent distress HEENT: PERRL/EOMI, normal ENT inspection, TMs normal Neck: non-tender, full range of motion Respiratory: normal breath sounds, no respiratory distress, no accessory muscle use Gastrointestinal: normal bowel sounds, non tender Extremities: normal range of motion, non-tender Psychiatric: alert, oriented x 3 Crainal Nerves: normal hearing, normal speech, PERRL Skin: normal color, warm/dry Progress/Results/Core Measures Results/Orders My Orders Orders - ZOHRA MONTAGUE APRN Ketorolac Injection (Toradol Injection) (09/22/19 20:15) Prochlorperazine Injection (Compazine In (09/22/19 20:15) Diphenhydramine Injection (Benadryl Inje (09/22/19 20:15) Vital Signs/I&O 09/22/19 19:57 Temp 36.8 Pulse 77 Resp 17 B/P (MAP) 111/73 (86) O2 Delivery Room Air Blood Pressure Mean: 86 Departure Impression Primary Impression: Headache Qualified Codes: R51 - Headache Disposition: 01 HOME, SELF-CARE Condition: Stable Departure-Patient Inst. Decision time for Depature: 20:05 Referrals: [facility] (PCP) Primary Care Physician JAMES PONCE APRN (Family) Primary Care Physician Patient Instructions: Headache, Adult (DC) Add. Discharge Instructions: 1. Follow-up with your regular doctor next week 2. Return to ER for any concerns All discharge instructions reviewed with patient and/or family. Voiced understanding. ZOHRA MONTAGUE APRN Sep 22, 2019 20:05
[2019-09-22] MEDS ORDERED: diphenhydrAMINE 50 MG/ML INJ (BENADRYL) IM ONE (20:15)
[2019-09-22] MEDS ORDERED: PROCHLORPERAZINE 10 MG/2ML INJ (COMPAZINE) IM ONE (20:15)
[2019-09-22] MEDS ORDERED: KETOROLAC 60 MG/2 ML VIAL IM ONE (20:15)
[2019-09-22] MEDS ORDERED: ONDANSETRON 4 MG (ZOFRAN) ORAL DISSOLVE TAB ONE (20:23)
[2019-09-22] MEDS ORDERED: ONDANSETRON 4 MG (ZOFRAN) ORAL DISSOLVE TAB PO ONE (20:30)
--- OUTSIDE RECORDS SUMMARY | 2019-09-22 22:17 | XMS REPORT ---
Author Author Remedios CONTRERAS Organization [facility] Address [address] [place] [address] Care Team Providers Care Process Safety Management Engineer Name Role Phone KASSANDRA CONTRERAS Unavailable PROBLEMS Type Condition ICD9-CM Code BAL56-KD Code Onset Dates Condition S tatus SNOMED Code Problem Dysthymia F34.1 Active 69481891 Problem Other chronic pain G89.29 Active 8 3406997 Problem Migraine with aura and without status migrainosu s, not intractable G43.109 Active 0050591 ALLERGIES No Information ENCOUNTERS Encounter Location Date Diagnosis [facility] [id number] [place] [phone] Sep, [facility] [id number] [place] [phone] Aug, Vaginal itching N89.8 ; Possible exposure to STD Z20.2 and Acute vaginitis N76.0 [facility] [address] [id number] [address] [place] [phone] Jun, Tooth infection K04.7 [facility] [address] [facility] [id number] [address] [place] [phone] May, Generalized body aches R52 [facility] [address] [facility] [id number] [address] [place] [phone] May, [facility] [address] [id number] [address] [place] [phone] Apr, Other chronic pain G89.29 ; Low back pain M54.5 and Cervicalgia M54.2 [facility] [address] [facility] [id number] [address] [place] [phone] 17 Apr, 2019 Other chronic pain G89.29 ; Low back pain M54.5 and Cervicalgia M54.2 [facility] [address] [id number] [address] [place] [phone] Apr, [facility] [address] [id number] [address] [place] [phone] Apr, [facility] [address] [id number] [address] [place] [phone] Apr, [facility] [address] [id number] [address] [place] [address] Apr, Other chronic pain G89.29 ; Low back pain M54.5 and Cervicalgia M54.2 [facility] [address] [id number] [address] [place] [phone] Apr, Other chronic pain G89.29 ; Low back pain M54.5 and Cervicalgia M54.2 [place] [id number] [id number] [address] [place] [phone] Apr, Other chronic pain G89.29 ; Low back pain M54.5 and Cervicalgia M54.2 [facility] [address] [id number] [address] [place] [phone] Apr, Low back pain M54.5 ; Other chronic pain G89.29 and Cervicalgia M54.2 [facility] [address] [id number] [address] [place] [phone] Mar, Pain in thoracic spine M54.6 [facility] [address] [id number] [address] [place] [phone] Feb, Pain in thoracic spine M54.6 and Other chronic pain G89.29 [facility] [address] [facility] [id number] [address] [place] [phone] Dec, Muscle strain T14.8XXA [facility] [address] [facility] [id number] [address] [place] [phone] Aug, Dysthymia F34.1 [facility] [address] [id number] [address] [place] [phone] 16 Jan, 2018 Dysthymia F34.1 ; Cervicalgi a M54.2 and Family history of systemic lupus erythematosus Z82.69 [place] [address] [phone] 20 Nov, 2017 Dysthymia F34.1 ; Migraine w ith aura and without status migrainosus, not intractable G43.109 ; Screening for diabetes mellitus Z13.1 ; Screening for thyroid disorder Z13.29 ; Screening, iron deficiency anemia Z13.0 and Screening for hyperlipidemia Z13.220 [facility] [address] [address] Mar, Pharyngitis J02.9 and Bronch itis J40 [address] [address] Mar, Hematochezia K92.1 and Abdom inal pain R10.[address] [address] Mar, [address] [address] 30 Feb, 2015 Well woman exam Z01.419 [...] Trichomonas infection A59.9 and Yeast infection B37.9 [facility] [address] [id number] [address] [place] [id number] Feb, Encounter for dental examina tion Z01.20 and Dental caries K02.9 [facility] [address] [id number] [address] [place] [phone] 17 Nov, 2014 Dysuria 788.1 and UTI (urina ry tract infection) 599.0 [facility] [address] [id number] [address] [place] [phone] 08 Nov, 2014 [facility] [place] [address] [id number] [address] [place] [phone] 04 Nov, 2014 Routine gynecological examin ation V72.31 ; Breast cancer screening V76.10 ; Screening examination for STD (sexually transmitted disease) V74.5 and Trichomonas infection 131.9 [facility] [address] [id number] [address] [place] [phone] Jun, [facility] [address] [id number] [address] [place] [phone] Jun, [facility] [address] [id number] [address] [place] [phone] Oct, [facility] [place] [address] [id number] [address] [place] [phone] Oct, [facility] [address] [id number] [address] [place] [phone] Oct, [facility] [place] [address] [id number] [address] [place] [phone] Oct, [facility] [address] [id number] [address] [place] [phone] Oct, [facility] [place] [address] [id number] [address] [place] [phone] Oct, [facility] [address] [id number] [address] [place] [phone] Oct, [facility] [place] [address] [id number] [address] [place] [phone] Oct, [facility] [place] [address] [id number] [address] [place] [phone] Oct, [facility] [place] [address] [id number] [address] [place] [address], [place] [address] 08 Jun, 2013 [facility] [address] [id number] [address] [place] [address], [place] [address] Jun, [facility] [address] [id number] [address] [place] [address], [place] [address] Jun, [facility] [address] [id number] [address] [place] [address], [place] [address] May, [facility] [address] [id number] [address] [place] [address], [place] [address] Feb, [facility] [address] [id number] [address] [place] [address], [place] [address] Feb, [facility] [address] [id number] [address] [place] [address], [place] [address] Jan, [facility] [address] [id number] [address] [place] [address], [place] [address] Jan, [facility] [address] [id number] [address] [place] [address], [place] [address] Jan, [facility] [address] [id number] [address] [place] [address], [place] [address] Jan, [facility] [address] [id number] [address] [place] [address], [place] [address] Nov, [facility] [address] [id number] [address] [place] [address], [place] [address] Oct, [facility] [address] [id number] [address] [place] [address], [place] [address] Sep, [facility] [address] [id number] [address] [place] [address], [place] [address] Aug, [facility] [address] [id number] [address] [place] [address], [place] [address] Jan, [facility] [address] [id number] [address] [place] [address], [place] [address] Dec, [facility] [address] [facility] [id number] [address] [place] [phone] Dec, [facility] [address] [facility] [id number] [address] [place] [phone] Jan, [facility] [address] [facility] [id number] [address] [place] [phone] 10 Nov, 2008 IMMUNIZATIONS No Known Immunizations SOCIAL HISTORY Never Assessed REASON FOR VISIT PLAN OF CARE VITAL SIGNS Height 68 in 2013-02-16 Weight 132.8 lbs 2013-02-16 Temperature 97.8 degrees Fahrenheit 2013-02-16 Heart Rate 68 bpm 2013-02-16 Respiratory Rate 20 2013-02-16 Blood pressure systolic 102 mmHg 2013-02-16 Blood pressure diastolic 80 mmHg 2013-02-16 MEDICATIONS Unknown Medications RESULTS No Results PROCEDURES [...]
--- OUTSIDE RECORDS SUMMARY | 2019-09-22 22:18 | XMS REPORT | Continuity of Care Document ---
Author Organization Unknown Address Unknown Phone Unavailable Allergies Active Description Code Type Severity Reaction Onset Reported/Identified Relationship to Patient Clinical Status Yes No Known Drug Allergies [id number] Drug Allergy Unknown N/A 10/28/2007 Yes NKDA [...] GODFREY APRN A 616.10 VAGINITIS 01/09/2010 BEKAH SENIOR ADULTS DIRECTOR, JANNETTE A 78 4.0 HEADACHE 01/09/2010 BEKAH PICKARD, JANNETTE A 788.41 URINARY FREQUENCY 01/09/2010 BEKAH PICKARD JANNETTE A V04.81 FLU SHOT 01/09/2010 DIANE MELLY KASSANDRA S 616.10 VAGINITIS 01/09/2010 DIANE SENIOR ADULTS DIRECTOR, KASSANDRA S 784.0 HEADACHE 01/09/2010 DIANE RODARTEN, KASSANDRA S 788.41 URINARY FREQUENCY 01/09/2010 DIANE RODARTEJame KASSANDRA S V04.81 FLU SHOT 01/09/2010 MEAGHAN ARGUELLO MD 616.1 0 VAGINITIS 01/09/2010 MEAGHAN ARGUELLO MD 784.0 HEADACHE 01/09/2010 MEAGHAN ARGUELLO MD 788.4 1 URINARY FREQUENCY 01/09/2010 MEAGHAN ARUGELLO MD V04.8 1 FLU SHOT 01/09/2010 BEKAH RODARTEN, JANNETTE A 616.10 VAGINITIS 01/09/2010 BEKAH SENIOR ADULTS DIRECTOR, JANNETTE A 78 4.0 HEADACHE 01/09/2010 BEKAH RODARTEN, JANNETTE A 788.41 URINARY FREQUENCY 01/09/2010 BEKAH RODARTENNICOLASAJANNETTE A V04.81 FLU SHOT 11/06/2010 BEKAH SENIOR ADULTS DIRECTOR, JANNETTE A 622.11 CERVICAL DYSPLASIA: MILD 11/06/2010 [...] ARGUELLO MD 786.5 0 CHEST PAIN 08/29/2011 BEKAHJNANETTE CALABRESE APRN A 786.50 CHEST PAIN 01/10/2013 JANNETTE GODFREY APRN A 59 9.0 URINARY TRACT INFECTION 01/10/2013 KASSANDRA CONTRERAS APRN S 599.0 URINARY TRACT INFECTION 01/10/2013 MEAGHAN ARGUELLO MD 599.0 URINARY TRACT INFECTION 01/10/2013 BEKAHJANNETTE CALABRESE APRN A 59 9.0 URINARY TRACT INFECTION 02/16/2013 KASSANDRA CONTRERAS APRN S 511.0 PLEURISY NOS 02/16/2013 MEAGHAN ARGUELLO MD 511.0 PLEURISY NOS 02/16/2013 JANNETTE GODFREY APRN 51 1.0 PLEURISY NOS 06/08/2013 MEAGHAN ARGUELLO MD V15.8 9 OTHER SPECIFIED PERSONAL HISTORY PRESENTING HAZARDS TO HEALTH 06/08/2013 JANNETTE GODFREY APRN A V15.89 OTHER SPECIFIED PERSONAL HISTORY PRESENTING HAZARDS TO HEALTH 10/16/2013 JANNETTE GODFREY APRN A 054.10 GENITAL HERPES UNSPECIFIED 10/16/2013 BEKAHBHARATI PICKARD JANNETTE A V76.10 BREAST CANCER SCREENING 10/16/2013 JANNETTE GODFREY APRN A V7 6.2 CERVICAL CANCER SCREENING (PAP SMEAR) 04/14/2019 KING JAMESANTONIO Waddell APRN Ot M54 .6 PAIN IN THORACIC SPINE 05/05/2019 KRIS JAMESANTONIO Waddell APRN Ot M54 .6 PAIN IN THORACIC SPINE 05/05/2019 KING JAMESANTONIO Waddell APRN Ot M54 .6 PAIN IN THORACIC SPINE 08/15/2019 KING JAMESANTONIO Waddell APRN Ot M54 .6 PAIN IN THORACIC SPINE 08/15/2019 KING JAMESANTONIO Waddell APRN Ot M54 .6 PAIN IN THORACIC SPINE 08/17/2019 KATHARINE MAYFIELD, MUNA Houser Ot G43.909 MIGRAINE, UNSP, NOT INTRACTABLE, WITHOUT 08/17/2019 KATHARINE MAYFIELD, MUNA Houser Ot R51 HEADACHE 08/17/2019 KATHARINE MAYFIELD, MUNA Houser Ot Z79. 51 SENIOR CARE (CURRENT) USE OF INHALED STERO 08/17/2019 MUNA ALCANTAR MD, Ot Z82. 49 FAMILY HX OF ISCHEM HEART DIS AND OTH DI Procedures Code [place] [address] PAP SMEAR 11/06/2011 33269 UA W / CULTURE IF INDICATED 01/10/2013 90223 CULT URE URINE 01/12/2013 07671 GC/C HLAM PROBE (STATE) 10/16/2013 31337 PAP SMEAR 10/16/2013 Q0091 PAP SMEAR OBTAIN SMEAR 10/16/2013 64061 TRIC HOMONAS (IN-HOUSE) 10/16/2013 21596 CULT URE UROGENITAL 10/17/2013 Results Test Result Range TSH - 11/25/17 12:08 TSH 0.65 mIU/L NRG VITAMIN D, 25-H - 11/25/17 12:08 VITAMIN D,25-OH,TOTAL,IA 39 ng/mL 30-10 0 ALIYA - 01/21/18 16:29 ALIYA SCREEN, IFA NEGATIVE NEGATIVE GC/CHLAMYDIA (SWAB OR URINE)-RAPID - 10:32 CHLAMYDIA TRACHOMATIS RNA, TMA NOT DETECTED NOT DETECTED NEISSERIA GONORRHOEAE RNA, TMA NOT DETECTED NOT DETECTED COMMENT NRG CULTURE, GENITAL - 08/30/19 10:32 CULTURE, GENITAL SEE NOTE NRG COVID-19 ([facility]) - 09/05/19 14:15 Encounters ACCT No. Visit Date/Time Discharge Status Pt. Type Provider Facility Loc./Unit Complaint [id number] 10/16/2013 15:13:00 10/16/2013 23:59: 59 CLS Outpatient JANNETTE GODFREY APRN [id number] 06/13/2013 15:22:00 06/13/2013 23:59: 59 CLS Outpatient JOS MAYFIELD, MEAGHAN [id number] 02/16/2013 10:40:00 02/16/2013 23:59: 59 CLS Outpatient KASSANDRA CONTRERAS APRN [id number] 01/10/2013 10:38:00 01/10/2013 23:59: 59 CLS Outpatient JANNETTE GODFREY APRN [id number] 09/22/2019 19:52:00 020 20:28:00 DIS Emergency ZOHRA MONTAGUE APRN [facility] ER MIRGRAINE [id number] 08/15/2019 02:42:00 020 03:56:00 DIS Outpatient MUNA ALCANTAR MD [facility] ER MIGRAINE [id number] 04/13/2019 15:20:00 020 23:59:59 CLS Outpatient JAMES PONCE SENIOR ADULTS DIRECTOR [facility] RAD PAIN IN THORACIC SPINE [id number] 03/03/2019 10:15:00 019 23:59:59 CLS Preadmit ARAM NAVA ARSON INVESTIGATOR [facility] RAD PAIN IN THORACIC SPINE [id number] 12/27/2013 14:51:00 014 23:59:59 CLS Outpatient [id number] 05/30/2013 16:45:00 014 11:34:00 DIS Inpatient [id number] 09/10/2012 02:45:00 013 03:16:00 DIS Emergency [id number] 09/14/2019 13:50:00 09/14/2019 23:59:5 9 CLS Outpatient JAMES PONCE [facility] [id number] 09/05/2019 13:40:00 Document Registration [id number] 08/30/2019 10:00:00 Document Registration [id number] 01/21/2018 15:40:00 Document Registration [id number] 11/25/2017 11:20:00 Document Registration
== END 2019-09-22 20:28 | disposition home or self-care (01) ==
LOC: EDUNIT# 19:50 → ER 19:52
DX: R51 Headache (principal); Z82.49 Family history of ischemic heart disease and other diseases of the circulatory system
CPT/HCPCS: 99284

== ENCOUNTER → 2021-06-24 | Outpatient (CLI) | payer BC | LOC: LAB 15:26 | PROVIDERS: ATTEND Obstetrics & Gynecology | DX: Z11.3 Encounter for screening for infections with a predominantly sexual mode of transmission (principal) | CPT/HCPCS: 87491; 87591 ==

== ENCOUNTER 2021-07-30 05:00 | Emergency (ER) | payer BC, MEDICAID ==
[~2021-07-30] VITALS: Ht 173 cm; Wt 63.5 kg
[2021-07-30 05:11] VITALS: BP 110/53
[2021-07-30] MEDS ORDERED: DOXY1TAB3 PO (05:29)
--- NOTE | 2021-07-30 05:29 | ED General ---
General Chief Complaint: Head/Cervical Problems Stated Complaint: MIGRAINE,3 MONTHS PREG Nursing Triage Note: headache since 1300 07/29/21. reports 3 months . last dose apap 1700. Source of Information: Patient History of Present Illness Date Seen by Provider: July 30, 2021 Time Seen by Provider: 05:15 Initial Comments PT ARRIVES VIA POV FROM HOME STATES "I'M HAVING ANOTHER ONE OF MY MIGRAINES" STATES PAIN BEGAN YESTERDAY AT 1300 AND IS ON THE LEFT SIDE OF HER HEAD STATES SHE IS 14 WEEKS AND HAS HAD THESE HEADACHES NEARLY EVERY DAY SINCE SHE BECAME . THIS HEADACHE IS NO DIFFERENT THAN PREVIOUS HEADACHES HAS HISTORY OF HEADACHES, BUT HAVE BECOME MORE FREQUENT SINCE BECOMING PT HAS HAD ONGOING NAUSEA AND VOMITING SINCE BECOMING , NO VOMITING TODAY NO ABDOMINAL PAIN / PELVIC PAIN NO VAGINAL BLEEDING OR DISCHARGE NO FEVER OR URI SYMPTOMS NO VISION CHANGES NO URINARY SYMPTOMS AND IS VOIDING A NORMAL AMOUNT. TOOK 1 TYLENOL YESTERDAY AT 1700, OTHERWISE HAS NOT TAKEN ANYTHING ELSE FOR THIS HEADACHE STATES DR. MARKS HAS ADVISED HER TO TAKE TYLENOL AND ZYRTEC FOR THESE HEADACHES, BUT SHE HAS NOT TAKEN ZYRTEC IN THE LAST 24 HOURS ADDITIONALLY, DR. MARKS HAS PRESCRIBED HER ZOFRAN FOR NAUSEA AND VOMITING, BUT SHE HAS NOT TAKEN ANY HAD ROUTINE OB APPOINTMENT LAST WEDNESDAY, NO RX GIVEN. HAS NOT ATTEMPTED TO CONTACT DR. MARKS FOR THIS PROBLEM THIS WEEK. PT IS AB 1--MISCARRIAGE AT 4 WEEKS GESTATION 03/2020. NO D&C REQUIRED. PT DENIES ANY CHRONIC MEDICAL PROBLEMS PCP: [facility] [facility] F[facility]ILIT[facility] INSPECTOR: DR. MARKS Allergies and Home Medications Allergies Coded Allergies: No Known Drug Allergies (Verified , 10/28/07) Uncoded Allergies: NKDA (Allergy, Mild, 08/14/08) Patient Home Medication List Home Medication List Reviewed: Yes Acetaminophen/Caffeine (Excedrin Tension Headache Cplt) 1 Each Tablet, 1-1.5 TAB PO Q6H PRN for HEADACHE, (Reported) Entered as Reported by: KEARA HAWKINS on 05/31/13 1314 Azithromycin (Zithromax Tab) 250 Mg Tab, PO Z-JUSTIN, (Reported) Entered as Reported by: KELLEE GONZALEZ on 05/30/13 1534 Doxylamine/Pyridoxine HCl (Venessa Wood 10-10 mg Tablet) 10 Mg-10 Mg Tablet.dr, 2 EACH PO HS Prescribed by: MARIANA NDIAYE on 07/30/21 0529 Fluticasone Propionate (Flonase 0.05% Nasal Normal) 16 Gm Normal, 2 SPRAYS NS DAILY, (Reported) Entered as Reported by: KELLEE GONZALEZ on 05/30/13 1534 Ondansetron (Zofran Odt) 4 Mg/Udtablet Tab.rapdis, 4 MG PO Q6H PRN for PRN Nausea Prescribed by: BETTY SHARMA on 06/01/13 1136 Pseudoephedrine Hcl (Sudafed Tab) 30 Mg Tab, 60 MG PO Q6H Prescribed by: MEAGHAN ARGUELLO on 06/01/13 0952 Review of Systems Review of Systems Constitutional: no symptoms reported EENTM: no symptoms reported Respiratory: no symptoms reported Cardiovascular: no symptoms reported Gastrointestinal: see HPI Genitourinary: no symptoms reported Musculoskeletal: no symptoms reported; No neck pain Skin: no symptoms reported Psychiatric/Neurological: See HPI Hematologic/Lymphatic: No Symptoms Reported Immunological/Allergic: no symptoms reported Past Fayisiz-Webxpe-Lkbarf Hx Patient Social History Tobacco Use?: Yes Tobacco type used: Cigarettes Smoking Status: Former Smoker (QUIT > 10 YEARS AGO) Substance use?: No Alcohol Use?: No Pt feels they are or have been: No Seasonal Allergies Seasonal Allergies: No Past Medical History Surgeries: No Respiratory: No Cardiac: No Neurological: Yes Headaches /Migraines Reproductive Disorders: No Genitourinary: No Gastrointestinal: No Musculoskeletal: No Endocrine: No HEENT: No Cancer: No Psychosocial: No Integumentary: No Blood Disorders: No Family Medical History Family history: Hypertension 03 FATHER Family history: Thyroid disorder 03 FATHER History of - respiratory disease 03 FATHER (COPD) No Family History of: Abdominal aortic aneurysm Cottonwood's disease Alcoholism Aphasia Cancer Cancer of colon Cataract Chest pain Congenital heart disease Congestive heart failure Cystic fibrosis Dementia Dysphagia Family history: Allergy Family history: Alzheimer's disease Family history: Arthritis Family history: Asthma Family history: Breast disease Family history: Cardiovascular disease Family history: Coronary thrombosis Family history: Diabetes mellitus Family history: Gastrointestinal disease Family history: Glaucoma Family history: Osteoporosis Headache Hearing loss Heart disease Hereditary disease History of - anemia History of - disorder History of drug abuse Human immunodeficiency virus (HIV) seropositivity Hypercholesterolemia Infertile Kidney disease Malignant neoplasm of lung Myocardial infarction Parkinson's disease Prostate cancer Psychotic disorder Seizure disorder Stroke Tuberculosis Visual impairment Physical Exam Vital Signs Vital Signs - First Documented 07/30/21 05:11 Temp 36.3 Pulse 68 Resp 16 B/P (MAP) 110/53 (72) Pulse Ox 98 O2 Delivery Room Air Capillary Refill : Less Than 3 Seconds Height, Weight, BMI Height: 5'8.00" Weight: 131lbs. oz. 59.311991ig; 21.00 BMI Method:Stated General Appearance: No Apparent Distress, WD/WN HEENT: PERRL/EOMI, TMs Normal, Normal ENT Inspection, Pharynx Normal Neck: Full Range of Motion, Normal Inspection, Non Tender, Supple Respiratory: Normal Breath Sounds, No Accessory Muscle Use, No Respiratory Distress Cardiovascular: Regular Rate, Rhythm, No Edema, No JVD, No Murmur, Normal Peripheral Pulses Gastrointestinal: Non Tender, Soft Back: No CVA Tenderness Extremity: Normal Inspection, No Pedal Edema Neurologic/Psychiatric: Alert, Oriented x3, No Motor/Sensory Deficits, Normal Mood/Affect, consultant technology II-XII Norm as Tested; No Abnormal Cerebellar Tests, No Abnormal Gait Skin: Normal Color, Warm/Dry, Tattoos/Piercings (EXTENSIVE TATTOOS) Progress/Results/Core Measures Suspected Sepsis SIRS Temperature: Pulse: 68 Respiratory Rate: 16 Blood Pressure 110 /53 Mean: 72 Results/Orders My Orders Orders - MARIANA NDIAYE DO Acetaminophen Tablet (Tylenol Tablet) (07/30/21 05:30) Metoclopramide Oral Liquid (Reglan Oral (07/30/21 05:30) Vital Signs/I&O 07/30/21 05:11 Temp 36.3 Pulse 68 Resp 16 B/P (MAP) 110/53 (72) Pulse Ox 98 O2 Delivery Room Air Capillary Refill : Less Than 3 Seconds Blood Pressure Mean: 72 Departure Impression Primary Impression: Headache Additional Impression: 13 weeks gestation of Disposition: 01 HOME, SELF-CARE Condition: Stable Departure-Patient Inst. Decision time for Depature: 05:26 Referrals: [facility] (PCP) Primary Care Physician JAMES PONCE APRN (Family) Primary Care Physician TESSIE MARKS DO Patient Instructions: Headache, Adult (DC), Morning Sickness (DC) Add. Discharge Instructions: INCREASE YOUR FLUID INTAKE--WATER, BROTH, JELLO, GATORADE EAT SMALL MEALS FREQUENTLY, BLAND DIET, SUCH BRATS DIET--BANANAS, RICE, APPLESAUCE, TOAST, SALTINES TYLENOL 1 GRAM 4 TIMES A DAY FOR HEADACHE FOLLOW UP WITH DR. MARKS THIS WEEK FOR FURTHER CARE All discharge instructions reviewed with patient and/or family. Voiced understanding. Scripts Doxylamine/Pyridoxine HCl (Venessa Wood 10-10 mg Tablet) 10 Mg-10 Mg Tablet.dr 2 EACH PO HS, #60 TAB Prov: MARIANA NDIAYE DO 07/30/21 MARIANA NDIAYE DO July 30, 2021 05:29
[2021-07-30] MEDS ORDERED: METOCLOPRAMIDE 10MG/10ML ORAL SOL(REGLAN) UDC PO SCH (05:30)
[2021-07-30] MEDS ORDERED: ACETAMINOPHEN 500 MG TAB (TYLENOL) PO ONE (05:30)
== END 2021-07-30 05:47 | disposition home or self-care (01) ==
LOC: EDUNIT# 05:00 → ER 05:06
DX: O99.351 Diseases of the nervous system complicating pregnancy, first trimester (principal); R51.9 Headache, unspecified; Z87.891 Personal history of nicotine dependence; Z87.59 Personal history of other complications of pregnancy, childbirth and the puerperium; Z3A.13 13 weeks gestation of pregnancy
CPT/HCPCS: 99283

== ENCOUNTER → 2021-09-16 | Outpatient (CLI) | payer BC, MEDICAID ==
[~2021-09-16] MED LIST changes: +DOXY1TAB3 PO
--- NOTE | 2021-09-16 14:57 | Diagnostic Imaging Report ---
INDICATION: OB ultrasound for survey. TECHNIQUE: Multiple Real-time grayscale images were obtained over the gravid uterus. COMPARISON: None. FINDINGS: A single live intrauterine fetus is currently breech and active. The placenta is anterior and does extend into the lower uterine segment measuring approximately 2.7 cm from the internal os. The cervical length is 3.5 cm. The amniotic fluid index is normal. The heart rate is 146 BPM. The survey shows normal structures including kidneys, bladder, stomach, ventricles in brain, four-chamber heart, three-vessel cord, and cord insertion. Not visualized well due to position was the spine. The maternal adnexa are normal. Biometrical measurements are as follows: Biparietal 4.47 cm, age 19 weeks 4 days. Head circumference 17.11 cm, age 19 weeks 5 days. Abdominal circumference 15.61 cm, age 20 weeks 6 days. Femur length 3.10 cm, age 19 weeks 5 days. Sonographic estimate age: 20 weeks 0 days. Sonographic estimated date of delivery: 02/03/2022. Estimated Weight: 336 gm (+/- 49 gm). LMP percentile: 55%. heart rate: 146 beats per minute. number: 1 of 1. IMPRESSION: There is a single live intrauterine fetus currently breech and active. No abnormalities are demonstrated. Please note, the spine was not well visualized. Dictated by: Dictated on workstation # [id number]
== END ==
LOC: RAD 11:57
PROVIDERS: ATTEND Nurse Practitioner Women's Health
DX: Z34.02 Encounter for supervision of normal first pregnancy, second trimester (principal)
CPT/HCPCS: 76805

== ENCOUNTER 2021-11-24 05:34 | Outpatient (CLI) | payer BC, MEDICAID ==
[~2021-11-24] VITALS: Ht 172.7 cm; Wt 73.6 kg
[2021-11-24 06:02] LABS: BILIRUBIN,URINE NEGATIVE (NEGATIVE); CLARITY,URINE CLEAR; COLOR,URINE YELLOW; GLUCOSE, URINE (UA) NEGATIVE (NEGATIVE); KETONES,URINE NEGATIVE (NEGATIVE); LEUKOCYTE ESTERASE ,URINE TRACE (NEGATIVE); NITRITE,URINE NEGATIVE (NEGATIVE); PROTEIN,URINE NEGATIVE (NEGATIVE)
[2021-11-24 06:10] VITALS: BP 121/73
[2021-11-24 06:13] LABS: BACTERIA,URINE LARGE /HPF
[2021-11-24 06:14] VITALS: BP 121/73
[2021-11-24] MEDS ORDERED: ONDANSETRON 4 MG/2 ML (SDV) Z0FRAN IVP ONE (06:45)
[2021-11-24] MEDS ORDERED: D5 LR IV SOLUTION 1,000 ML IV SCH (06:45)
[2021-11-24 07:08] LABS: BASOPHILS # (AUTO) 0.1 10^3/uL (0.0-0.1); BASOPHILS % (AUTO) 1 % (0-10); EOSINOPHILS # (AUTO) 0.3 10^3/uL (0.0-0.3); EOSINOPHILS % (AUTO) 3 % (0-10); HEMATOCRIT 33 % (35-52); HEMOGLOBIN 10.9 g/dL (11.5-16.0); LYMPHOCYTES # (AUTO) 1.8 10^3/uL (1.0-4.0); LYMPHOCYTES % (AUTO) 18 % (12-44); MEAN CORPUSCULAR HEMOGLOBIN 31 pg (25-34); MEAN CORPUSCULAR HGB CONC 33 g/dL (32-36); MEAN CORPUSCULAR VOLUME 94 fL (80-99); MEAN PLATELET VOLUME 11.2 fL (9.0-12.2); MONOCYTES # (AUTO) 0.6 10^3/uL (0.0-1.0); MONOCYTES % (AUTO) 6 % (0-12); NEUTROPHILS # (AUTO) 7.1 10^3/uL (1.8-7.8); NEUTROPHILS % (AUTO) 72 % (42-75); PLATELET COUNT 235 10^3/uL (130-400); WHITE BLOOD COUNT 9.8 10^3/uL (4.3-11.0)
[2021-11-24] MEDS ORDERED: ONDANSETRON 4 MG/2 ML (SDV) Z0FRAN ONE (07:19)
[2021-11-24 07:29] VITALS: BP 101/59
[2021-11-24] MEDS ORDERED: ONDANSETRON 4 MG/2 ML (SDV) Z0FRAN IVP NR (07:30)
[2021-11-24 07:37] LABS: ALBUMIN 3.2 GM/DL (3.2-4.5); BILIRUBIN,TOTAL 0.3 MG/DL (0.1-1.0); CALCIUM 8.5 MG/DL (8.5-10.1); CREATININE SERUM 0.64 MG/DL (0.60-1.30); POTASSIUM 3.6 MMOL/L (3.6-5.0); TOTAL PROTEIN 6.4 GM/DL (6.4-8.2)
[2021-11-24 07:43] LABS: EOSINOPHILS % (MANUAL) 4 %; LYMPHOCYTES % (MANUAL) 22 %; MONOCYTES % (MANUAL) 4 %; NEUTROPHILS % (MANUAL) 70 %; RBC MORPH NORMAL
[2021-11-24] MEDS ORDERED: oxyCODONE/APAP 5/325MG (PERCOCET 5) TABLET PO PRN (07:45)
[2021-11-24 07:50] VITALS: BP 112/59
[2021-11-24] MEDS ORDERED: POLY17PO6 PO (08:35)
[2021-11-24] MEDS ORDERED: CETI10CA PO (08:35)
--- NOTE | 2021-11-24 09:49 | Diagnostic Imaging Report ---
PROCEDURE: US Renal Bilateral. TECHNIQUE: Multiple real-time grayscale images were obtained over the kidneys in various projections bilaterally. INDICATION: Abdominal pain and nausea. FINDINGS: Right kidney measures 9.7 x 4.9 x 4.8 cm. Left kidney measures 10.6 x 5.7 x 4.8 cm. Both kidneys demonstrate normal renal cortical thickness and echogenicity. There is an echogenic density in the superior to midportion of the right kidney possibly nonobstructing stone. There is a 1.9 cm peripelvic cyst. There are small echogenic areas near the sinus and the left kidney as well possibly nonobstructing stones. There is a small parapelvic cyst on the left measuring 1.6 cm. There is no hydronephrosis in either kidney. Both ureteral jets are visualized IMPRESSION: Probable bilateral nephrolithiasis without obstructive uropathy. Additionally there are small bilateral peripelvic cysts. Dictated by: Dictated on workstation # [id number]
--- NOTE | 2021-11-25 07:46 | Physician Query-Final Dx ---
MITCHELL,11/25/21 0746: Clinic Account Progress/Dx Physician Query: Please give diagnosis Please include # weeks gestation Date of Service Nov 24, 2021 at 05:34 LIYAH DUNCAN MD 11/25/21 1922: Clinic Account Progress/Dx DIAGNOSIS: Diagnosis 29 weeks with false labor ,MarNov 25, 2021 07:46 LIYAH DUNCAN MD Nov 25, 2021 19:22
== END 2021-11-24 09:50 | disposition home or self-care (01) ==
LOC: WSo 05:34 → LDRP 05:41 → WSo 09:50
PROVIDERS: ATTEND Obstetrics & Gynecology
DX: O47.03 False labor before 37 completed weeks of gestation, third trimester (principal); Z3A.29 29 weeks gestation of pregnancy
CPT/HCPCS: 36415; 76770; 80053; 81000; 85007; 85027; 87088

== ENCOUNTER 2021-12-19 11:52 | Outpatient (CLI) | payer BC, MEDICAID ==
[~2021-12-19] VITALS: Ht 58 cm; Wt 76.7 kg
[~2021-12-19 11:52] MED LIST changes: +CETI10CA PO; +POLY17PO6 PO
--- NOTE | 2021-12-22 08:30 | Physician Query-Final Dx ---
,12/22/21 0830: Clinic Account Progress/Dx Physician Query: Please give diagnosis Please include # weeks gestation Date of Service Dec 19, 2021 at 11:52 LIYAH DUNCAN MD 12/23/21 0800: Clinic Account Progress/Dx DIAGNOSIS: Diagnosis 33 weeks gestation with leukorrhea/false labor ,MarDec 22, 2021 08:30 LIYAH DUNCAN MD Dec 23, 2021 08:00
== END 2021-12-19 12:45 ==
LOC: LDRP 11:52 → WSo 11:52
PROVIDERS: ATTEND Obstetrics & Gynecology
DX: O88.813 Other embolism in pregnancy, third trimester (principal); Z3A.33 33 weeks gestation of pregnancy
CPT/HCPCS: 99213

== ENCOUNTER 2022-01-08 11:24 | Outpatient (CLI) | payer MEDICAID ==
[~2022-01-08] VITALS: Ht 172.7 cm; Wt 80.5 kg
[2022-01-08 11:51] LABS: BILIRUBIN,URINE NEGATIVE (NEGATIVE); CLARITY,URINE CLEAR; COLOR,URINE YELLOW; GLUCOSE, URINE (UA) NEGATIVE (NEGATIVE); KETONES,URINE NEGATIVE (NEGATIVE); LEUKOCYTE ESTERASE ,URINE NEGATIVE (NEGATIVE); NITRITE,URINE NEGATIVE (NEGATIVE); PH,URINE 6.5 (5-9); PROTEIN,URINE NEGATIVE (NEGATIVE)
[2022-01-08] MEDS ORDERED: DOCU-143 PO (11:51)
[2022-01-08 11:53] VITALS: BP 119/71
[2022-01-08 12:06] LABS: BACTERIA,URINE TRACE /HPF; SQUAMOUS EPITHELIAL CELL,UR 0-2 /HPF
[2022-01-08] MEDS ORDERED: NS IV 1000 ML 1,000 ML IV SCH (13:15)
[2022-01-08] MEDS ORDERED: ONDANSETRON 4 MG/2 ML (SDV) Z0FRAN IVP PRN (13:15)
[2022-01-08 13:39] LABS: BASOPHILS # (AUTO) 0.1 10^3/uL (0.0-0.1); BASOPHILS % (AUTO) 1 % (0-10); EOSINOPHILS # (AUTO) 0.2 10^3/uL (0.0-0.3); EOSINOPHILS % (AUTO) 2 % (0-10); HEMATOCRIT 35 % (35-52); HEMOGLOBIN 11.3 g/dL (11.5-16.0); LYMPHOCYTES # (AUTO) 2.4 10^3/uL (1.0-4.0); LYMPHOCYTES % (AUTO) 22 % (12-44); MEAN CORPUSCULAR HEMOGLOBIN 29 pg (25-34); MEAN CORPUSCULAR HGB CONC 33 g/dL (32-36); MEAN CORPUSCULAR VOLUME 90 fL (80-99); MEAN PLATELET VOLUME 11.8 fL (9.0-12.2); MONOCYTES # (AUTO) 0.7 10^3/uL (0.0-1.0); MONOCYTES % (AUTO) 6 % (0-12); NEUTROPHILS # (AUTO) 7.6 10^3/uL (1.8-7.8); NEUTROPHILS % (AUTO) 68 % (42-75); PLATELET COUNT 234 10^3/uL (130-400); WHITE BLOOD COUNT 11.1 10^3/uL (4.3-11.0)
[2022-01-08 13:57] LABS: ALBUMIN 3.5 GM/DL (3.2-4.5); BILIRUBIN,TOTAL 0.3 MG/DL (0.1-1.0); CALCIUM 8.9 MG/DL (8.5-10.1); CREATININE SERUM 0.58 MG/DL (0.60-1.30); TOTAL PROTEIN 6.6 GM/DL (6.4-8.2)
--- NOTE | 2022-01-09 08:07 | Physician Query-Final Dx ---
MITCHELL,01/09/22 0807: Clinic Account Progress/Dx Physician Query: Please give diagnosis Please include # weeks gestation Date of Service Jan 08, 2022 at 11:24 TESSIE MARKS DO 01/09/22 1541: Clinic Account Progress/Dx DIAGNOSIS: Diagnosis 36 week IUP Gastroenteritis MITCHELL,MarJan 09, 2022 08:07 TESSIE MARKS DO Jan 09, 2022 15:41
== END 2022-01-08 15:35 | disposition home or self-care (01) ==
LOC: LDRP 11:24 → WSo 11:24
PROVIDERS: ATTEND Obstetrics & Gynecology
DX: O99.613 Diseases of the digestive system complicating pregnancy, third trimester (principal); K52.9 Noninfective gastroenteritis and colitis, unspecified; Z3A.36 36 weeks gestation of pregnancy
CPT/HCPCS: 36415; 80053; 81000; 85025; 87081; 96361; 96374; 99213

== ENCOUNTER 2022-01-12 07:49 | Observation (INO) | payer MEDICAID ==
[~2022-01-12] VITALS: Ht 172.7 cm; Wt 81.5 kg
[~2022-01-12 07:49] MED LIST changes: +DOCU-143 PO
[2022-01-12 08:15] VITALS: BP 126/59
[2022-01-12] MEDS ORDERED: ONDANSETRON 4 MG/2 ML (SDV) Z0FRAN IVP ONE (09:45)
[2022-01-12] MEDS ORDERED: D5 LR IV SOLUTION 1,000 ML IV SCH ×2 (09:45→13:45)
[2022-01-12 10:06] LABS: BASOPHILS % (AUTO) 0 % (0-10); EOSINOPHILS # (AUTO) 0.2 10^3/uL (0.0-0.3); EOSINOPHILS % (AUTO) 2 % (0-10); HEMATOCRIT 32 % (35-52); HEMOGLOBIN 10.8 g/dL (11.5-16.0); LYMPHOCYTES % (AUTO) 19 % (12-44); MEAN CORPUSCULAR HEMOGLOBIN 30 pg (25-34); MEAN CORPUSCULAR HGB CONC 33 g/dL (32-36); MEAN CORPUSCULAR VOLUME 89 fL (80-99); MEAN PLATELET VOLUME 11.7 fL (9.0-12.2); MONOCYTES # (AUTO) 0.7 10^3/uL (0.0-1.0); MONOCYTES % (AUTO) 6 % (0-12); NEUTROPHILS # (AUTO) 7.3 10^3/uL (1.8-7.8); NEUTROPHILS % (AUTO) 71 % (42-75); PLATELET COUNT 213 10^3/uL (130-400); WHITE BLOOD COUNT 10.4 10^3/uL (4.3-11.0)
[2022-01-12 10:07] LABS: BILIRUBIN,URINE NEGATIVE (NEGATIVE); CLARITY,URINE CLEAR; COLOR,URINE YELLOW; GLUCOSE, URINE (UA) NEGATIVE (NEGATIVE); KETONES,URINE NEGATIVE (NEGATIVE); LEUKOCYTE ESTERASE ,URINE NEGATIVE (NEGATIVE); NITRITE,URINE NEGATIVE (NEGATIVE); PROTEIN,URINE NEGATIVE (NEGATIVE)
[2022-01-12 10:13] LABS: BACTERIA,URINE NEGATIVE /HPF; SQUAMOUS EPITHELIAL CELL,UR RARE /HPF
[2022-01-12] MEDS ORDERED: oxyCODONE/APAP 5/325MG (PERCOCET 5) TABLET PO ONE (11:45)
[2022-01-12] MEDS ORDERED: BUTORPHANOL INJ 2 MG/ML (STADOL) VIAL IV ONE (13:00)
[2022-01-12 13:59] VITALS: BP 117/74
--- NOTE | 2022-01-12 17:15 | History & Physical ---
History and Physical Date Seen by Provider: Jan 12, 2022 Time Seen by Provider: 17:12 This patient is a 36-year-old 1 female patient at 36 and 6/7 weeks gestation. She had care with Dr. Mcgowan. She presented with complaint of increasing pain pressure and contractions. She was found to be angelique with some regularity and with some vigor. She was hydrated and analgesia with some decrease in her contractions however they have persisted. Contractions are 8 or 10 minutes apart patient reports they are getting progressively stronger through the day. Initially she was quite a centimeter dilated and now she is approaching 2 cm. Plan is for observation through the night for progression in labor. record repeat flex a negative group B strep within the last couple of week Patient denies discharge or bleeding. She has no other issues. Allergies are to ibuprofen Medications are vitamins And Prilosec 40 mg nightly Medical social and surgical histories are per the antepartum record HEENT exam is normal Neck is supple no lymphadenopathy no thyromegaly Abdomen is gravid soft nontender nondistended Extremities show no clubbing cyanosis. There is no Homans' sign. Pelvic exam per the admitting nurse shows a presenting part that is very vertex and very low in the pelvis. Cervix is sometimes difficult to access but has demonstrated apparently some change from around a centimeter to almost 2 cm. monitor shows category 1 tracing with contractions about 8 to 10 minutes apart Assessment and plan 36-6/7 weeks gestation with labor. We will continue observation hydration through the night. We can use analgesia as needed for patient comfort. Patient does have an issue with reflux and we will allow Pepcid 40 mg at bedtime 36 weeks gestation with labor Allergies and Home Medications Allergies Coded Allergies: ibuprofen (Verified Allergy, Mild, Hives, 11/24/21) Uncoded Allergies: NKDA (Allergy, Mild, 08/14/08) Patient Home Medication List Home Medication List Reviewed: Yes Docusate Sodium (Colace) 100 Mg Capsule, 100 MG PO BID, (Reported) Entered as Reported by: MARK DIXON on 01/08/22 1151 Discontinued Medications Cetirizine HCl (Zyrtec) 10 Mg Capsule, MG PO PRN, (Reported) Discontinued Reason: Referral/FU Appt-Addtl Entered as Reported by: JUDD FENG on 11/24/21 0835 Ondansetron (Zofran Odt) 4 Mg/Udtablet Tab.rapdis, 4 MG PO Q6H PRN for PRN Nausea Discontinued Reason: No Longer Taking Prescribed by: BETTY SHARMA on 06/01/13 1136 LIYAH DUNCAN MD Jan 12, 2022 17:15
[2022-01-12] MEDS ORDERED: oxyCODONE/APAP 5/325MG (PERCOCET 5) TABLET PO PRN (20:00)
[2022-01-12] MEDS ORDERED: oxyCODONE/APAP 5/325MG (PERCOCET 5) TABLET ONE (20:07)
[2022-01-12] MEDS ORDERED: FAMOTIDINE 20 MG (PEPCID) TABLET PO NR (21:00)
== END 2022-01-12 22:15 | disposition home or self-care (01) ==
LOC: LDRP 07:49 → WSo 07:49 → LDRP 13:02
PROVIDERS: ADMIT Obstetrics & Gynecology; ATTEND Obstetrics & Gynecology
DX: O47.03 False labor before 37 completed weeks of gestation, third trimester (principal); O99.613 Diseases of the digestive system complicating pregnancy, third trimester; K21.9 Gastro-esophageal reflux disease without esophagitis; Z3A.36 36 weeks gestation of pregnancy
CPT/HCPCS: 36415; 81000; 85025; 96361; 96374

== ENCOUNTER 2022-01-16 00:28 | Outpatient (CLI) | payer MEDICAID ==
[~2022-01-16] VITALS: Ht 172.7 cm; Wt 81.7 kg
[2022-01-16 01:15] VITALS: BP 117/59
[2022-01-16] MEDS ORDERED: morphine INJ 10 MG/ML 1ML (SYR OR VIAL) IVP STA (02:29)
[2022-01-16] MEDS ORDERED: morphine INJ 10 MG/ML 1ML (SYR OR VIAL) IM STA (02:29)
[2022-01-16 03:18] LABS: BILIRUBIN,URINE NEGATIVE (NEGATIVE); CLARITY,URINE CLEAR; COLOR,URINE YELLOW; GLUCOSE, URINE (UA) NEGATIVE (NEGATIVE); KETONES,URINE NEGATIVE (NEGATIVE); LEUKOCYTE ESTERASE ,URINE TRACE (NEGATIVE); NITRITE,URINE NEGATIVE (NEGATIVE); PROTEIN,URINE NEGATIVE (NEGATIVE)
[2022-01-16 03:27] LABS: BACTERIA,URINE TRACE /HPF; SQUAMOUS EPITHELIAL CELL,UR 0-2 /HPF; WBC,URINE 0-2 /HPF
[2022-01-16 04:25] VITALS: BP 100/49
--- NOTE | 2022-01-16 07:28 | History & Physical-OB ---
OB - Chief Complaint & HPI Date/Time Date of Admission: Date of Admission: Date seen by a Provider: Jan 16, 2022 Time Seen by a Provider: 07:25 Chief Complaint/History OB-Reason for Admission/Chief: Hx : 2 Hx Para: 0 Expected Date of Delivery: Jan 15, 2022 Gestational Age in Weeks: 37 Gestational Age in Days: 3 Admission Nurse Assessment Rev: Yes History of Labs Patient presented with irregular contractions and pain last evening, having not made any cervical change from office visit this week on Wednesday. Allergies and Home Medications Allergies Coded Allergies: ibuprofen (Verified Allergy, Mild, Hives, 11/24/21) Patient Home Medication List Home Medication List Reviewed: Yes No Active Prescriptions or Reported Meds OB - History Hx of Present Care: Yes Ultrasounds: Normal mid trimester US Obstetrical Complications: None Medical Complications: None Obstetrical History Hx : 2 Hx Para: 0 Hx Total # of Abortions (Spona: 1 Delivery History Hx Blood Disorders: No Patient Past Medical History n/a Social History/Family History Alcohol Use: Denies Use Recreational Drug Use: No 2nd Hand Smoke Exposure: No Immunizations Influenza Vaccine Up-to-Date: Yes; Up-to-Date OB - Admission Exam Physical Exam Vitals: Vital Signs 01/16/22 01/16/22 01:15 04:25 Temp 36.5 Pulse 68 Resp 18 B/P (MAP) 100/49 (66) Pulse Ox 97 O2 Delivery Room Air HEENT: NCAT Heart: Rhythm Normal Lungs: Clear Abdomen: Gravid Extremities: Normal Reflexes: Normal Cervical Dilatation: 2cm Effacement: 75% Station: -2 Membranes: Intact Heart Rate: 130's Accelerations: Accelerations Present Decelerations: No Decelerations Short Term Variability: Present Cooperative Manager Variability: Average (6-25) Contractions on Admission: 6-10 Minutes Apart Intensity: Mild Labs Laboratory Tests Test 01/16/22 03:00 Range/Units Urine Color YELLOW Urine Clarity CLEAR Urine pH 6.0 5-9 Urine Specific [place] 1.010 L 1.016-1.022 Urine Protein NEGATIVE NEGATIVE Urine Glucose (UA) NEGATIVE NEGATIVE Urine Ketones NEGATIVE NEGATIVE Urine Nitrite NEGATIVE NEGATIVE Urine Bilirubin NEGATIVE NEGATIVE Urine Urobilinogen 0.2 < = 1.0 MG/DL Urine Leukocyte Esterase TRACE H NEGATIVE Urine RBC (Auto) TRACE-I H NEGATIVE Urine RBC NONE /HPF Urine WBC 0-2 /HPF Urine Squamous Epithelial Cells 0-2 /HPF Urine Crystals NONE /LPF Urine Bacteria TRACE /HPF Urine Casts NONE /LPF Urine Mucus NEGATIVE /LPF Urine Culture Indicated NO OB - Assessment/Plan/Diagnosis Assessment Admission Dx 36 yo @ 37.2 weeks Prolonged latent phase labor Pelvic pain Admission Status: Observation Plan Other Plan Morphine rest done with 5mg morphine IV and 5 IM, patient rested and felt better this am, still having not made any further cervical change. TESSIE MARKS DO Jan 16, 2022 07:28
--- NOTE | 2022-01-19 08:20 | Physician Query-Final Dx ---
MITCHELL,01/19/22 0820: Clinic Account Progress/Dx Physician Query: Please give diagnosis Date of Service Jan 16, 2022 at 00:28 TESSIE MARKS DO 01/19/22 1601: Clinic Account Progress/Dx DIAGNOSIS: Diagnosis 36 week IUP Pelvic pressure MITCHELL,MarJan 19, 2022 08:20 TESSIE MARKS DO Jan 19, 2022 16:01
== END 2022-01-16 07:30 | disposition home or self-care (01) ==
LOC: LDRP 00:28 → WSo 00:28
PROVIDERS: ATTEND Obstetrics & Gynecology
DX: O47.03 False labor before 37 completed weeks of gestation, third trimester (principal); Z3A.37 37 weeks gestation of pregnancy
CPT/HCPCS: 81000; 96372; 96374; 99214

== ENCOUNTER 2022-01-23 10:07 | Inpatient (IN) | payer MEDICAID ==
[~2022-01-23] VITALS: Ht 172.7 cm; Wt 80.9 kg
[2022-01-23 10:28] VITALS: BP 117/72
[2022-01-23 10:30] VITALS: BP 117/72
[2022-01-23 10:45] LABS: BILIRUBIN,URINE NEGATIVE (NEGATIVE); CLARITY,URINE CLEAR; COLOR,URINE YELLOW; GLUCOSE, URINE (UA) NEGATIVE (NEGATIVE); KETONES,URINE NEGATIVE (NEGATIVE); LEUKOCYTE ESTERASE ,URINE 3+ (NEGATIVE); NITRITE,URINE NEGATIVE (NEGATIVE); PROTEIN,URINE NEGATIVE (NEGATIVE)
[2022-01-23 10:52] LABS: BACTERIA,URINE FEW /HPF; WBC,URINE 25-50 /HPF
[2022-01-23] MEDS ORDERED: morphine INJ 10 MG/ML 1ML (SYR OR VIAL) IVP STA (12:03)
[2022-01-23] MEDS ORDERED: ONDANSETRON 4 MG/2 ML (SDV) Z0FRAN IVP ONE (12:15)
[2022-01-23] MEDS ORDERED: LIDOCAINE 1% INJ 20 ML VIAL IJ PRN (14:30)
[2022-01-23] MEDS ORDERED: BUTORPHANOL INJ 2 MG/ML (STADOL) VIAL IV PRN (14:30)
--- NOTE | 2022-01-23 14:59 | History & Physical-OB ---
OB - Chief Complaint & HPI Date/Time Date of Admission: Date of Admission: 01/23/22 Date seen by a Provider: Jan 23, 2022 Time Seen by a Provider: 13:50 Chief Complaint/History OB-Reason for Admission/Chief: Onset of Labor Hx : 2 Hx Para: 0 Hx Last Menstrual Period: 04/11/2021 Expected Date of Delivery: Feb 03, 2022 Gestational Age in Weeks: 38 Gestational Age in Days: 3 Other reason for admission: 36 y.o. EDC (20 week US) 02/03/22 @ 38 3/7 weeks admitted in labor @ approx. 1415 hours with cervix of 4/80/-2/VTX/BOWI and regular and painful uterine contractions q2-3 minutes. GBS negative. FHR tracing Category I almost entire time for last several hours during observation. Admitted for delivery. PNC: BL nephrolithiasis (non-obstructing) on OB US 11/26/10, Rx T#3 prn PMH: BL nephrolithiasis (above), migraines, arthritis both knees PSH: None SHx: Negative for smoking/ETOH/Rx, Hx of +GC around age 21, no hx of other STI Meds: Tylenol prn pain, Benadryl prn insomnia Allergy: Motrin (hives) OB US: done 09/16/21. US EGA 20 0/, anterior placental, normal anatomic survey, sub-optimal views of spine. IMMUNIZATIONS: TDAP and Flu given 12/10/21 LABS: MBT A POS PNAS NEG VDRL NR HIV NR GC/CT NEG X 2 RUBELLA IMMUNE HCV NEG 1 HR GTT 111 GBS NEG Admission Nurse Assessment Rev: Yes Allergies and Home Medications Allergies Coded Allergies: ibuprofen (Verified Allergy, Mild, Hives, 11/24/21) Patient Home Medication List Home Medication List Reviewed: Yes No Active Prescriptions or Reported Meds OB - History Hx of Present Care: Yes Ultrasounds: Normal mid trimester US Obstetrical Complications: Other (BL non-obstructing nephrolithiasis on US 11/26/21) Obstetrical History Hx : 2 Hx Para: 0 Hx Total # of Abortions (Spona: 1 Delivery History Hx Blood Disorders: No Patient Past Medical History n/a Social History/Family History Alcohol Use: Denies Use Recreational Drug Use: No 2nd Hand Smoke Exposure: No Immunizations Influenza Vaccine Up-to-Date: Yes; Up-to-Date OB - Admission Exam Physical Exam Vitals: Vital Signs 01/23/22 10:30 Temp 36.7 Pulse 75 Resp 18 B/P (MAP) 117/72 (87) Pulse Ox 97 O2 Delivery Room Air HEENT: EOMI Heart: Rhythm Normal Lungs: Clear Abdomen: Gravid Extremities: Normal Reflexes: Normal Cervical Dilatation: 4cm Effacement: Other (80%) Station: -2 Membranes: Intact Heart Rate: 130's Accelerations: Accelerations Present Decelerations: No Decelerations Fdc Variability: Average (6-25) Contractions on Admission: < 5 Minutes Apart Duration: 1 minute Intensity: Firm Labs Laboratory Tests Test 01/23/22 10:20 Range/Units Urine Color YELLOW Urine Clarity CLEAR Urine pH 7.0 5-9 Urine Specific [place] 1.010 L 1.016-1.022 Urine Protein NEGATIVE NEGATIVE Urine Glucose (UA) NEGATIVE NEGATIVE Urine Ketones NEGATIVE NEGATIVE Urine Nitrite NEGATIVE NEGATIVE Urine Bilirubin NEGATIVE NEGATIVE Urine Urobilinogen 0.2 < = 1.0 MG/DL Urine Leukocyte Esterase 3+ H NEGATIVE Urine RBC (Auto) 2+ H NEGATIVE Urine RBC 2-5 H /HPF Urine WBC 25-50 H /HPF Urine Squamous Epithelial Cells 5-10 /HPF Urine Crystals NONE /LPF Urine Bacteria FEW H /HPF Urine Casts NONE /LPF Urine Mucus NEGATIVE /LPF Urine Culture Indicated YES OB - Assessment/Plan/Diagnosis Assessment Assessment: active labor Admission Dx #1: Labor at 38 weeks -Admitted for delivery. Routine orders. Requesting epidural later in labor. Adequate pelvis, [place] 7 lbs 12 onz. Consider AROM after delivery and cervical change. Patient in regular contraction pattern spontaneously #2: BL Nephrolisthiasis -non-obstructing, on US 11/26/21 #3: Motrin Allergy: -No Motrin Admission Status: Inpatient Order (span 2 midnights) Reason for Inpatient Admission: Labor Plan Plan: Expectant Management (See above. Admitted for delivery.) MARIBEL SCHUMACHER DO Jan 23, 2022 14:59
[2022-01-23 15:05] VITALS: BP 111/58
[2022-01-23] MEDS: D5 LR IV SOLUTION 1,000 ML IV SCH ×2 (15:46→23:38)
[2022-01-23 16:19] LABS: BASOPHILS # (AUTO) 0.1 10^3/uL (0.0-0.1); BASOPHILS % (AUTO) 0 % (0-10); EOSINOPHILS # (AUTO) 0.1 10^3/uL (0.0-0.3); EOSINOPHILS % (AUTO) 1 % (0-10); HEMATOCRIT 33 % (35-52); HEMOGLOBIN 10.6 g/dL (11.5-16.0); LYMPHOCYTES # (AUTO) 2.5 10^3/uL (1.0-4.0); LYMPHOCYTES % (AUTO) 15 % (12-44); MEAN CORPUSCULAR HEMOGLOBIN 29 pg (25-34); MEAN CORPUSCULAR HGB CONC 33 g/dL (32-36); MEAN CORPUSCULAR VOLUME 88 fL (80-99); MEAN PLATELET VOLUME 11.5 fL (9.0-12.2); MONOCYTES # (AUTO) 0.9 10^3/uL (0.0-1.0); MONOCYTES % (AUTO) 5 % (0-12); NEUTROPHILS # (AUTO) 13.3 10^3/uL (1.8-7.8); NEUTROPHILS % (AUTO) 79 % (42-75); PLATELET COUNT 246 10^3/uL (130-400); WHITE BLOOD COUNT 16.8 10^3/uL (4.3-11.0)
[2022-01-23 16:30] VITALS: BP 117/66
[2022-01-23 17:05] LABS: LYMPHOCYTES % (MANUAL) 16 %; MONOCYTES % (MANUAL) 4 %; NEUTROPHILS % (MANUAL) 80 %
[2022-01-23 17:06] LABS: RBC MORPH NORMAL
[2022-01-23] MEDS: ONDANSETRON 4 MG/2 ML (SDV) Z0FRAN IVP PRN (18:21)
[2022-01-23 19:43] VITALS: BP 113/70
[2022-01-23 20:37] VITALS: BP 122/73
[2022-01-23] MEDS ORDERED: diphenhydrAMINE 25 MG TAB (BENADRYL) PO PRN (20:45)
[2022-01-23] MEDS ORDERED: ACETAMINOPHEN 500 MG TAB (TYLENOL) PO PRN (20:45)
--- NOTE | 2022-01-23 20:54 | Labor Progress Note ---
Labor Progress Note Labor Progress Note Date Seen by Provider: Jan 23, 2022 Time Seen by Provider: 20:35 Subjective: Patient has received 1 mg Stadol IV since admission, causing her to have nausea. Declines anymore Stadol or epidural at this time. Contractions are stronger and about every 3-5 minutes, most of the time q5 minutes. FHR has been category I almost entire time since presentation to L&D this afternoon. At 2000 hours there was a 2 minute decel down to mid 70s when getting back in bed, but now Category I again. Cervix unchanged by my exam at 2034 hours, 4/80/-2/VTX/BOWI, cervix slightly more in mid position now. Rx Tylenol and Benadryl for pain and insomnia. Continue expectant management while in latent labor. Objective: As above Assessment/Plan: Continue expectant management while in latent labor. Patient understands condition and no questions or concerns voiced. FOB and patient's mother and RN in room during patient encounter. Vitals - Labs Vital Signs - I&O Vital Signs Date Time Temp Pulse Resp B/P (MAP) Pulse Ox O2 Delivery O2 Flow Rate FiO2 01/23/22 19:43 36.2 67 18 113/70 (84) 99 Room Air 01/23/22 16:30 36.5 73 16 117/66 (83) 99 Room Air 01/23/22 15:05 36.1 64 18 111/58 (75) 99 Room Air 01/23/22 15:05 36.1 64 18 99 Room Air 01/23/22 10:30 36.7 75 18 117/72 (87) 97 Room Air 01/23/22 10:28 36.5 75 20 117/72 98 Room Air Labs Laboratory Tests 01/23/22 10:20: Urine Color YELLOW, Urine Clarity CLEAR, Urine pH 7.0, Urine Specific [place] 1.010L, Urine Protein NEGATIVE, Urine Glucose (UA) NEGATIVE, Urine Ketones NEGATIVE, Urine Nitrite NEGATIVE, Urine Bilirubin NEGATIVE, Urine Urobilinogen 0.2, Urine Leukocyte Esterase 3+H, Urine RBC (Auto) 2+H, Urine RBC 2-5H, Urine WBC 25-50H, Urine Squamous Epithelial Cells 5-10, Urine Crystals NONE, Urine Bacteria FEWH, Urine Casts NONE, Urine Mucus NEGATIVE, Urine Culture Indicated YES 01/23/22 16:00: White Blood Count 16.8H, Red Blood Count 3.71L, Hemoglobin 10.6L, Hematocrit 33L , Mean Corpuscular Volume 88, Mean Corpuscular Hemoglobin 29, Mean Corpuscular Hemoglobin Concent 33, Red Cell Distribution Width 13.9, Platelet Count 246, Mean Platelet Volume 11.5, Immature Granulocyte % (Auto) 1, Neutrophils (%) (Auto) 79H, Lymphocytes (%) (Auto) 15, Monocytes (%) (Auto) 5, Eosinophils (%) (Auto) 1, Basophils (%) (Auto) 0, Neutrophils # (Auto) 13.3H, Lymphocytes # (Auto) 2.5, Monocytes # (Auto) 0.9, Eosinophils # (Auto) 0.1, Basophils # (Auto) 0.1, Immature Granulocyte # (Auto) 0.1, Neutrophils % (Manual) 80, Lymphocytes % (Manual) 16, Monocytes % (Manual) 4, Polychromasia , Blood Morphology Comment NORMAL MARIBEL SCHUMACHER DO Jan 23, 2022 20:54
[2022-01-23] MEDS ORDERED: PROMETHAZINE INJ 25 MG/ML (PHENERGAN) AMP ONE (21:00)
[2022-01-23] MEDS ORDERED: PROMETHAZINE INJ 25 MG/ML (PHENERGAN) AMP IVP PRN (21:00)
[2022-01-23] MEDS ORDERED: diphenhydrAMINE 25 MG TAB (BENADRYL) PO ONE (21:01)
[2022-01-23] MEDS ORDERED: ACETAMINOPHEN 325 MG TABLET ONE (21:01)
[2022-01-23] MEDS ORDERED: ACETAMINOPHEN 325 MG TABLET PO ONE (21:08)
[2022-01-23] MEDS ORDERED: CATHETER FLUSH 10 ML SYR IV SCH (22:00)
[2022-01-24] VITALS (35 sets, daily range): BP systolic 100–130; BP diastolic 49–97
[2022-01-24] MEDS: morphine INJ 4 MG/ML 1 ML (VIAL/SYRINGE) IVP PRN ×2 (00:01→05:28)
[2022-01-24] MEDS ORDERED: ACETAMINOPHEN 325 MG TABLET PO PRN (01:45)
[2022-01-24] MEDS: ONDANSETRON 4 MG/2 ML (SDV) Z0FRAN IVP PRN (05:28)
[2022-01-24] MEDS: D5 LR IV SOLUTION 1,000 ML IV SCH (06:53)
[2022-01-24] MEDS ORDERED: fentaNYL 2 mcg/ml BUPIVA 0.125 100 ML ONE (07:36)
[2022-01-24] MEDS ORDERED: LIDOCAINE PF 2% 5 ML (XYLOCAINE) VIAL ONE ×2 (08:14→12:37)
[2022-01-24] MEDS ORDERED: fentaNYL INJ 100 MCG/2 ML AMP ONE ×3 (08:15→11:41)
[2022-01-24] MEDS ORDERED: METOCLOPRAMIDE INJ 10 MG/2 ML (REGLAN) IV PRN (09:00)
[2022-01-24] MEDS ORDERED: diphenhydrAMINE 50 MG/ML INJ (BENADRYL) IV PRN (09:00)
[2022-01-24] MEDS ORDERED: LACTATED RINGERS 1,000 ML IV SCH (09:00)
[2022-01-24] MEDS ORDERED: fentaNYL 2 mcg/ml BUPIVA 0.125 100 ML EPI SCH (09:00)
[2022-01-24] MEDS ORDERED: ONDANSETRON 4 MG/2 ML (SDV) Z0FRAN IV PRN (09:00)
[2022-01-24] MEDS ORDERED: NALOXONE 0.4 MG/ML 1 ML (NARCAN) VIAL IV PRN ×3 (09:00→12:30)
[2022-01-24] MEDS ORDERED: OXYTOCIN PRE-MIX DRIP 500 ML IV SCH ×2 (09:15→12:30)
--- NOTE | 2022-01-24 09:37 | Labor Progress Note ---
Labor Progress Note Labor Progress Note Date Seen by Provider: Jan 24, 2022 Time Seen by Provider: 08:55 Hospital Day #2 36 y.o. @ 38 4/7 weeks admitted in latent labor yesterday afternoon and allowed to contract spontaneously. Received Stadol and Morphine IV for labor pain overnight. SROM this AM clear at 0705 hours. Patient now has functional epidural and a palmer in place. Cervical exam by me at 0858 is 4/80/-2...IUPC placed at that time... Category I FHR tracing with baseline 140 bpm and irregular contractions q4-5 minutes. Patient started on IV Pitocin augmentation per protocol to shorten duration of labor and decrease risk of maternal infection. Patient understands condition and no questions at this time. VSS/AF. HCT/PLT 33/246 . Will keep cervical exams at a minimum to try to decrease risk of intrauterine infection. Vitals - Labs Vital Signs - I&O Vital Signs Date Time Temp Pulse Resp B/P (MAP) Pulse Ox O2 Delivery O2 Flow Rate FiO2 01/24/22 07:15 36.4 81 18 119/72 (88) 99 Room Air 01/24/22 06:50 36.0 74 18 119/70 (86) 100 Room Air 01/24/22 03:00 36.3 65 16 125/70 (88) 99 Room Air 01/24/22 00:04 36.5 70 16 117/79 (92) 98 Room Air 01/23/22 20:37 72 18 122/73 (89) 100 Room Air 01/23/22 19:43 36.2 67 18 113/70 (84) 99 Room Air 01/23/22 16:30 36.5 73 16 117/66 (83) 99 Room Air 01/23/22 15:05 36.1 64 18 111/58 (75) 99 Room Air 01/23/22 15:05 36.1 64 18 99 Room Air 01/23/22 10:30 36.7 75 18 117/72 (87) 97 Room Air 01/23/22 10:28 36.5 75 20 117/72 98 Room Air I & O 01/24/22 07:00 Intake Total 2000 ml Balance 2000 ml Labs Laboratory Tests 01/23/22 10:20: Urine Color YELLOW, Urine Clarity CLEAR, Urine pH 7.0, Urine Specific [place] 1.010L, Urine Protein NEGATIVE, Urine Glucose (UA) NEGATIVE, Urine Ketones NEGATIVE, Urine Nitrite NEGATIVE, Urine Bilirubin NEGATIVE, Urine Urobilinogen 0.2, Urine Leukocyte Esterase 3+H, Urine RBC (Auto) 2+H, Urine RBC 2-5H, Urine WBC 25-50H, Urine Squamous Epithelial Cells 5-10, Urine Crystals NONE, Urine Bacteria FEWH, Urine Casts NONE, Urine Mucus NEGATIVE, Urine Culture Indicated YES 01/23/22 16:00: White Blood Count 16.8H, Red Blood Count 3.71L, Hemoglobin 10.6L, Hematocrit 33L , Mean Corpuscular Volume 88, Mean Corpuscular Hemoglobin 29, Mean Corpuscular Hemoglobin Concent 33, Red Cell Distribution Width 13.9, Platelet Count 246, Mean Platelet Volume 11.5, Immature Granulocyte % (Auto) 1, Neutrophils (%) (Auto) 79H, Lymphocytes (%) (Auto) 15, Monocytes (%) (Auto) 5, Eosinophils (%) (Auto) 1, Basophils (%) (Auto) 0, Neutrophils # (Auto) 13.3H, Lymphocytes # (A uto) 2.5, Monocytes # (Auto) 0.9, Eosinophils # (Auto) 0.1, Basophils # (Auto) 0.1, Immature Granulocyte # (Auto) 0.1, Neutrophils % (Manual) 80, Lymphocytes % (Manual) 16, Monocytes % (Manual) 4, Polychromasia , Blood Morphology Comment NORMAL ENDYMARIBEL Jan 24, 2022 09:37
[2022-01-24] MEDS ORDERED: TERBUTALINE INJ 1 MG/ML (BRETHINE) AMP ONE (10:25)
[2022-01-24] MEDS ORDERED: CITRIC ACID/SOB CIT (BICITRA) 30 ML UDC ONE (10:35)
[2022-01-24] MEDS ORDERED: METOCLOPRAMIDE INJ 10 MG/2 ML (REGLAN) ONE (10:36)
[2022-01-24] MEDS ORDERED: FAMOTIDINE 20MG/2ML IV (PEPCID) ONE (10:36)
[2022-01-24] MEDS ORDERED: ceFAZolin INJECTION 2,000 MG ONE (10:39)
[2022-01-24] MEDS ORDERED: AZITHROMYCIN INJECTION 500 MG/5 ML VIAL ONE (10:39)
[2022-01-24] MEDS ORDERED: NS (IVPB) 250 ML ONE (10:40)
[2022-01-24] MEDS ORDERED: NS (IVPB) 50 ML ONE (10:40)
[2022-01-24] MEDS ORDERED: FAMOTIDINE 20MG/2ML IV (PEPCID) IV ONE (11:00)
[2022-01-24] MEDS ORDERED: CITRIC ACID/SOB CIT (BICITRA) 30 ML UDC PO NR (11:00)
[2022-01-24] MEDS ORDERED: AZITHROMYCIN INJECTION 500 MG in NS (IVPB) 250 ML IV ONE (11:00)
[2022-01-24] MEDS ORDERED: METOCLOPRAMIDE INJ 10 MG/2 ML (REGLAN) IV ONE (11:00)
[2022-01-24] MEDS ORDERED: ceFAZolin INJECTION 2,000 MG in NS (IVPB) 50 ML IV ONE (11:00)
[2022-01-24] MEDS ORDERED: OXYTOCIN PRE-MIX DRIP 500 ML IV ONE ×2 (11:01→12:15)
[2022-01-24] MEDS ORDERED: ceFAZolin INJECTION 2,000 MG IV ONE (11:33)
[2022-01-24] MEDS ORDERED: TERBUTALINE INJ 1 MG/ML (BRETHINE) AMP SC NR (12:00)
[2022-01-24] MEDS ORDERED: KETOROLAC 30 MG/ML VIAL ONE (12:14)
[2022-01-24] MEDS ORDERED: ONDANSETRON 4 MG/2 ML (SDV) Z0FRAN ONE (12:15)
[2022-01-24] MEDS ORDERED: ROPIVACAINE 5MG/ML 30ML VIAL ONE (12:17)
[2022-01-24] MEDS ORDERED: HYDROmorphone 2 MG/ML VIAL (DILAUDID) ONE (12:20)
[2022-01-24] MEDS ORDERED: BISACODYL 10 MG SUPP (DULCOLAX) PR PRN (12:30)
[2022-01-24] MEDS ORDERED: ONDANSETRON 4 MG/2 ML (SDV) Z0FRAN IVP PRN (12:30)
[2022-01-24] MEDS: KETOROLAC 30 MG/ML VIAL IV SCH ×2 (12:46→18:50)
--- NOTE | 2022-01-24 13:09 | OB/GYN Operative Report ---
Operative Report Date of Procedure:Jan 24, 2022 Preoperative Diagnosis: [38 4/7 Weeks, Intolerance of Labor] Postoperative Diagnosis: [Same] Name of the Procedure: [ Section] Surgeon: Maribel Schumacher [employer] Supervisor(s): Karyn Loomis Anesthesia: [Venus Aguayo, AMITA] Indications for Procedure: [ at 5 cm dilation wih SROM in labor and recurrent and persistent late decelerations requiring delivery, 38 4/7 weeks.] Findings of the Procedure: [Normal cord and placenta, normal adnexa bilaterally. Delivery was productive of viable female born at 1115 hours, 7 lbs 4 onz., 8/9. ] Anesthesia: Epidural Antibiotics: Ancef 2gm IV, Zithromax 500 mg IV Drains: [place] FLUIDS: EBL 600 ML UO 300 ML CRYSTALLOID 800 ML Description of the Procedure: The patient was counseled and consented for surgery verbally and in writing. She was taken to the OR and placed on the OR table with a right hip role. A vaginal Betadine prep and an abdominal prep were performed. The patient was draped. A surgical time out was performed, an adequate anesthetic level was confirmed. A Pfannenstiel skin incision was made and sharp dissection was carried down to the level of the fascia which was nicked on both sides of the midline. The fascial incision was extended laterally bilaterally. The fascia was taken upwards and down sharply. The peritoneal cavity was entered bluntly. A bladder blade was inserted, a bladder flap created and a low transverse uterine incision was made that was extended laterally bluntly. The head was easily delivered through the uterine incision with minimal fundal pressure. The umbilical cord was clamped twice, cut between the clamps and handed off to the pediatric provider. IV Pitocin rapid infusion was started. Cord blood was obtained and the placenta was then delivered spontaneously and intact. The uterus was exteriorized and wrapped with a moist laparotomy sponge. Ring forceps were placed along the uterine incision for hemostasis. The incision was closed with two layers of 0- Vicryl, the first a running locking layer and the second a running imbricating layer. Bilateral 2 cm right and left extensions of the uterine incision were easily incorporated into the two layer closure of the uterine incision. A couple of box sutures of 0-Vicryl were placed along the incision for hemostasis. The posterior cul-de-sac was irrigated, suctioned and noted to be dry. The uterus and adnexa were allowed to fall back into the pelvis. The uterine incision, periotoneal edges, and muscle bellies were dry. The fascia was closed with running 1-Vicryl. The subcutaneous tissue was irrigated and area was noted to be dry. The skin was reapproximated with running subcuticular 4-0 Monocryl followed by steri-strips and a sterile dressing. All sponge, needle, and instrument counts were correct. The patient was transferred to the recovery area in stable condition. Complications: None Disposition: Stable to recovery area. MARIBEL SCHUMACHER DO Jan 24, 2022 13:08
[2022-01-24] MEDS: ACETAMINOPHEN 500 MG TAB (TYLENOL) PO PRN ×2 (15:26→21:28)
[2022-01-24] MEDS: CEPHALEXIN 250 MG (KEFLEX) CAP PO SCH (21:27)
[2022-01-24] MEDS: DOCUSATE SODIUM 100 MG (COLACE) CAP PO SCH (21:27)
[2022-01-25 00:27] VITALS: BP 106/59
[2022-01-25] MEDS: KETOROLAC 30 MG/ML VIAL IV SCH ×5 (00:27→23:22)
[2022-01-25 04:42] VITALS: BP 98/55
[2022-01-25] MEDS: ACETAMINOPHEN 500 MG TAB (TYLENOL) PO PRN ×4 (04:42→23:23)
[2022-01-25] MEDS ORDERED: MILK OF MAGNESIA 400 MG/5 ML 30 ML UDC PO PRN (05:00)
[2022-01-25 06:06] LABS: BASOPHILS # (AUTO) 0.1 10^3/uL (0.0-0.1); BASOPHILS % (AUTO) 0 % (0-10); EOSINOPHILS % (AUTO) 0 % (0-10); HEMATOCRIT 22 % (35-52); LYMPHOCYTES # (AUTO) 2.3 10^3/uL (1.0-4.0); LYMPHOCYTES % (AUTO) 11 % (12-44); MEAN CORPUSCULAR HEMOGLOBIN 28 pg (25-34); MEAN CORPUSCULAR HGB CONC 32 g/dL (32-36); MEAN CORPUSCULAR VOLUME 88 fL (80-99); MEAN PLATELET VOLUME 11.7 fL (9.0-12.2); MONOCYTES # (AUTO) 1.1 10^3/uL (0.0-1.0); MONOCYTES % (AUTO) 5 % (0-12); NEUTROPHILS # (AUTO) 16.3 10^3/uL (1.8-7.8); NEUTROPHILS % (AUTO) 82 % (42-75); PLATELET COUNT 219 10^3/uL (130-400); WHITE BLOOD COUNT 19.8 10^3/uL (4.3-11.0)
[2022-01-25] MEDS: ONDANSETRON 4 MG/2 ML (SDV) Z0FRAN IVP PRN (06:25)
[2022-01-25 08:40] VITALS: BP 102/55
[2022-01-25] MEDS ORDERED: BISACODYL 10 MG SUPP (DULCOLAX) PR ONE (09:30)
[2022-01-25] MEDS ORDERED: SIMETHICONE 80 MG (MYLICON) CHEW ONE (09:51)
[2022-01-25] MEDS: SIMETHICONE 80 MG (MYLICON) CHEW PO SCH ×3 (09:53→20:48)
[2022-01-25] MEDS: CEPHALEXIN 250 MG (KEFLEX) CAP PO SCH ×3 (09:53→20:48)
[2022-01-25] MEDS: DOCUSATE SODIUM 100 MG (COLACE) CAP PO SCH ×2 (09:53→20:48)
--- NOTE | 2022-01-25 11:19 | Short Stay Summary ---
Discharge Summary Hospital Course Was the Problem List Reviewed?: Yes Problems/Dx: (1) Uterine contractions Status: Resolved Assessment & Plan: # Delivery 01/24/22 doing well -Plan to discharge home 01/26/22 -Follow up with Dr. Mcgowan in 1 week for incision check. Final Diagnosis: Delivery Hospital Course Date of Admission: Jan 23, 2022 at 15:00 Admission Diagnosis : labor Family Physician/Provider: [place] Date of Discharge: 01/25/22 Discharge Diagnosis: [ Delivery] Hospital Course: Patient admitted 01/23/22 in labor at 4 cm dilation. Had delivery the next day on 01/24/22 for intolerance of labor at 5 cm dilaiton, productive of viable 7 lbs. 4 onz female with 8/9, uncomplicated. Will follow up with Dr. Mcgowan 1 week post-op for incision check. [ ] Labs and Pending Lab Test: Laboratory Tests 01/25/22 05:40: White Blood Count 19.8H, Red Blood Count 2.49L, Hemoglobin 7.0L, Hematocrit 22L, Mean Corpuscular Volume 88, Mean Corpuscular Hemoglobin 28, Mean Corpuscular Hemoglobin Concent 32, Red Cell Distribution Width 14.2, Platelet Count 219, Mean Platelet Volume 11.7, Immature Granulocyte % (Auto) 1, Neutrophils (%) (Auto) 82H, Lymphocytes (%) (Auto) 11L, Monocytes (%) (Auto) 5, Eosinophils (%) (Auto) 0, Basophils (%) (Auto) 0, Neutrophils # (Auto) 16.3H, Lymphocytes # (Auto) 2.3, Monocytes # (Auto) 1.1H, Eosinophils # (Auto) 0.0, Basophils # (Auto) 0.1, Immature Granulocyte # (Auto) 0.1 Microbiology 01/23/22 Urine Culture - Final, Complete NO GROWTH Home Meds Active No Active Prescriptions or Reported Medications Assessment/Pt Instructions # Delivery Discharge Instructions Discharge Diet: No Restrictions Activity as Tolerated: Yes Consultations None Discharge Physical Examination General Appearance: Oriented X3 HEENT: Mucous Memb Moist/[place] Respiratory: Clear to Auscultation Cardiovascular: Regular Rate Abdominal: Soft Extremities: No Edema Skin: No Rashes Neuro: Normal Gait Psych/Mental Status: Mental Status NL Allergies: Coded Allergies: ibuprofen (Verified Allergy, Mild, Hives, 11/24/21) Discharge Summary Date of Admission Jan 23, 2022 at 15:00 Date of Discharge 01/26/22 Discharge Date: Jan 26, 2022 Discharge Time: 09:00 Admission Diagnosis Contractions 38 weeks labor Consults/Procedures Consulations None Procedures Epidural Augmentation of Labor Section Discharge Diagnosis Delivery MARIBEL SCHUMACHER DO Jan 25, 2022 11:16
[2022-01-25] MEDS: CATHETER FLUSH 10 ML SYR IV SCH ×2 (11:45→17:35)
[2022-01-25 14:09] LABS: BASOPHILS # (AUTO) 0.1 10^3/uL (0.0-0.1); BASOPHILS % (AUTO) 0 % (0-10); EOSINOPHILS # (AUTO) 0.1 10^3/uL (0.0-0.3); EOSINOPHILS % (AUTO) 1 % (0-10); HEMATOCRIT 21 % (35-52); LYMPHOCYTES # (AUTO) 2.1 10^3/uL (1.0-4.0); LYMPHOCYTES % (AUTO) 12 % (12-44); MEAN CORPUSCULAR HEMOGLOBIN 29 pg (25-34); MEAN CORPUSCULAR HGB CONC 33 g/dL (32-36); MEAN CORPUSCULAR VOLUME 88 fL (80-99); MEAN PLATELET VOLUME 11.5 fL (9.0-12.2); MONOCYTES # (AUTO) 0.7 10^3/uL (0.0-1.0); MONOCYTES % (AUTO) 4 % (0-12); NEUTROPHILS # (AUTO) 13.6 10^3/uL (1.8-7.8); NEUTROPHILS % (AUTO) 81 % (42-75); PLATELET COUNT 218 10^3/uL (130-400); WHITE BLOOD COUNT 16.7 10^3/uL (4.3-11.0)
[2022-01-25 14:20] VITALS: BP 116/56
[2022-01-25 17:37] VITALS: BP 114/56
--- NOTE | 2022-01-25 19:08 | Short Stay Summary ---
Discharge Summary Hospital Course Was the Problem List Reviewed?: Yes Problems/Dx: (1) Uterine contractions Status: Resolved Assessment & Plan: Patient doing well evening of POD #1, repeat CBC stable with WBC down to 16.7 and HCT stable at 21%. Patient ambulating well without orthostasis. Has PNV with Fe which she will take while breast feeding. Will follow up with Dr. Mcgowan in 1 week. Discharge home tomorrow AM. Final Diagnosis: Delivery Hospital Course Date of Admission: Jan 23, 2022 at 15:00 Admission Diagnosis : Family Physician/Provider: [facility] Date of Discharge: 01/25/22 Discharge Diagnosis: [ ] Hospital Course: [ ] Labs and Pending Lab Test: Laboratory Tests 01/25/22 05:40: White Blood Count 19.8H, Red Blood Count 2.49L, Hemoglobin 7.0L, Hematocrit 22L, Mean Corpuscular Volume 88, Mean Corpuscular Hemoglobin 28, Mean Corpuscular Hemoglobin Concent 32, Red Cell Distribution Width 14.2, Platelet Count 219, Mean Platelet Volume 11.7, Immature Granulocyte % (Auto) 1, Neutrophils (%) (Auto) 82H, Lymphocytes (%) (Auto) 11L, Monocytes (%) (Auto) 5, Eosinophils (%) (Auto) 0, Basophils (%) (Auto) 0, Neutrophils # (Auto) 16.3H, Lymphocytes # (Auto) 2.3, Monocytes # (Auto) 1.1H, Eosinophils # (Auto) 0.0, Basophils # (Auto) 0.1, Immature Granulocyte # (Auto) 0.1 01/25/22 13:45: White Blood Count 16.7H, Red Blood Count 2.42L, Hemoglobin 7.0L, Hematocrit 21L, Mean Corpuscular Volume 88, Mean Corpuscular Hemoglobin 29, Mean Corpuscular Hemoglobin Concent 33, Red Cell Distribution Width 14.4, Platelet Count 218, Mean Platelet Volume 11.5, Immature Granulocyte % (Auto) 1, Neutrophils (%) (Auto) 81H, Lymphocytes (%) (Auto) 12, Monocytes (%) (Auto) 4, Eosinophils (%) (Auto) 1, Basophils (%) (Auto) 0, Neutrophils # (Auto) 13.6H, Lymphocytes # (Auto) 2.1, Monocytes # (Auto) 0.7, Eosinophils # (Auto) 0.1, Basophils # (Auto) 0.1, Immature Granulocyte # (Auto) 0.1 Microbiology 01/23/22 Urine Culture - Final, Complete NO GROWTH Home Meds Active No Active Prescriptions or Reported Medications Assessment/Pt Instructions # Delivery Discharge Instructions Discharge Diet: No Restrictions Activity as Tolerated: Yes Consultations None Discharge Physical Examination General Appearance: Alert, Oriented X3 HEENT: Mucous Memb Moist/[place] Respiratory: Clear to Auscultation Cardiovascular: No Murmurs Abdominal: Soft Skin: No Rashes Neuro: Normal Gait Psych/Mental Status: Mental Status NL Allergies: Coded Allergies: ibuprofen (Verified Allergy, Mild, Hives, 11/24/21) Discharge Summary Date of Admission Jan 23, 2022 at 15:00 Date of Discharge 01/26/22 Discharge Date: Jan 26, 2022 Discharge Time: 08:00 Admission Diagnosis Contractions 38 weeks labor Consults/Procedures Consulations None Procedures Epidural Augmentation of Labor Section Discharge Diagnosis Delivery (1) Uterine contractions Status: Resolved Assessment & Plan: # Delivery 01/24/22 doing well -Plan to discharge home 01/26/22 -Follow up with Dr. Mcgowan in 1 week for incision check. MARIBEL SCHUMACHER DO Jan 25, 2022 19:06
[2022-01-25 20:51] VITALS: BP 108/59
[2022-01-26 02:30] VITALS: BP 111/58
[2022-01-26] MEDS: CATHETER FLUSH 10 ML SYR IV SCH ×3 (03:31→17:23)
[2022-01-26] MEDS: ONDANSETRON 4 MG/2 ML (SDV) Z0FRAN IVP PRN (03:31)
[2022-01-26] MEDS: KETOROLAC 30 MG/ML VIAL IV SCH ×2 (04:58→11:18)
[2022-01-26] MEDS: ACETAMINOPHEN 500 MG TAB (TYLENOL) PO PRN ×4 (04:59→23:24)
--- NOTE | 2022-01-26 08:01 | Progress Note ---
Standard Progress Note Progress Notes/Assess & Plan Date Seen by a Provider: Jan 26, 2022 Time Seen by a Provider: 08:00 Progress/Assessment & Plan This patient is postop day #2 status post primary . She is doing well. She denies chest pain, denies shortness of breath, denies nausea vomiting, and denies headache. She is ambulating, voiding, tolerating oral intake well and has good pain control Vital Signs Date Time Temp Pulse Resp B/P (MAP) Pulse Ox O2 Delivery O2 Flow Rate FiO2 01/26/22 02:30 36.4 74 18 111/58 (75) 97 Room Air 01/25/22 20:51 36.4 74 18 108/59 (75) 98 Room Air 01/25/22 17:37 36.0 83 18 114/56 (75) 100 Room Air 01/25/22 14:20 36.4 81 18 116/56 (76) 100 Room Air 01/25/22 08:40 36.4 80 16 102/55 (71) 98 Room Air Vital signs are stable. Patient is afebrile. Abdomen is benign Extremities show no clubbing cyanosis. There is no Homans' sign. Assessment and plan Postoperative day #2 status post primary delivery doing well. Plan is for routine convalescent care with discharge home as needed patient request LIYAH DUNCAN MD Jan 26, 2022 08:01
[2022-01-26] MEDS: CEPHALEXIN 250 MG (KEFLEX) CAP PO SCH ×3 (08:46→21:36)
[2022-01-26] MEDS: DOCUSATE SODIUM 100 MG (COLACE) CAP PO SCH ×2 (08:46→21:36)
[2022-01-26] MEDS: SIMETHICONE 80 MG (MYLICON) CHEW PO SCH ×4 (08:46→21:36)
[2022-01-26 08:50] VITALS: BP 112/56
--- NOTE | 2022-01-26 09:00 | Anesthesia-Regional Post-Op ---
Regional Patient Condition Mental Status: Alert, Oriented x3 Circulation: Same as Pre-Op Headache: Absent Sensation: Full Recovery Motor Block: Absent Post Op Complications Complications None Follow Up Care/Instructions Patient Instructions None needed. Anesthesia/Patient Condition Patient is doing well, no complaints, stable vital signs, no apparent adverse anesthesia problems. No complications reported per nursing. ANAYELI DAWKINS CRNA Jan 26, 2022 09:00
[2022-01-26] MEDS ORDERED: KETOROLAC 30 MG/ML VIAL ONE (17:17)
[2022-01-26 17:21] VITALS: BP 121/58
[2022-01-26] MEDS: D5 LR IV SOLUTION 1,000 ML IV SCH (18:11)
[2022-01-26 23:25] VITALS: BP 104/51
[2022-01-27] MEDS ORDERED: NAPROXEN 250 MG (NAPROSYN) TABLET PO SCH (01:00)
[2022-01-27 05:38] VITALS: BP 120/65
[2022-01-27] MEDS: ACETAMINOPHEN 500 MG TAB (TYLENOL) PO PRN (05:38)
[2022-01-27 08:05] VITALS: BP 126/60
[2022-01-27] MEDS: DOCUSATE SODIUM 100 MG (COLACE) CAP PO SCH (09:37)
[2022-01-27] MEDS: CEPHALEXIN 250 MG (KEFLEX) CAP PO SCH (09:38)
[2022-01-27] MEDS: SIMETHICONE 80 MG (MYLICON) CHEW PO SCH (09:39)
--- NOTE | 2022-01-27 10:26 | Postpartum Progress Note ---
Note Note Day # 3 Subjective: Patient is without complaints. Ambulating, voiding. Tolerating a regular diet without nausea or vomiting. Normal lochia. Pain is well controlled with oral pain medications, reports much more manageable. Physical Exam: General - Alert and oriented, no apparent distress Abdomen - Soft, appropriately tender to palpation, non-distended, fundus firm at umbilicus; incision c/d/i Extremities - no edema, negative Epifanio's bilaterally Assessment: Post- day # 3, status post PLTCS Recovering well, hemodynamically stable Acute blood loss anemia Plan: Routine care. Encourage breast feeding. Encourage ambulation. Ferrous sulfate supplementation. Plan for discharge today Vitals - Labs Vital Signs - I&O Vital Signs Date Time Temp Pulse Resp B/P (MAP) Pulse Ox O2 Delivery O2 Flow Rate FiO2 01/27/22 08:05 35.9 75 18 126/60 (82) 97 Room Air 01/27/22 05:38 36.5 65 18 120/65 (83) 97 Room Air 01/26/22 23:25 36.1 66 18 104/51 (68) 97 Room Air 01/26/22 17:21 35.9 77 18 121/58 (79) 100 Room Air Labs Microbiology 01/23/22 Urine Culture - Final, Complete NO GROWTH JAKY VIZCARRA APRN Jan 27, 2022 10:26
[2022-01-27] MEDS ORDERED: DOCU100C37 PO (10:30)
[2022-01-27] MEDS ORDERED: OXC5T PO (10:30)
[2022-01-27] MEDS ORDERED: SIME80TA16 PO (10:30)
== END 2022-01-27 12:15 | disposition home or self-care (01) | DRG 787 ==
LOC: WSo 10:07 → LDRP 10:07 → WSo 15:00 → LDRP 15:00 → WS 01-24 13:11 → EDPENDDISTM 01-26 08:00 → EDPENDDISDT 01-27 08:00
PROVIDERS: ADMIT Obstetrics & Gynecology; ATTEND Obstetrics & Gynecology
PROC: 10H07YZ Insertion of Other Device into Products of Conception, Via Natural or Artificial Opening (ICD-10-PCS; 2022-01-24)
PROC: 10D00Z1 Extraction of Products of Conception, Low, Open Approach (ICD-10-PCS; principal; 2022-01-24 11:00)
DX: O62.0 Primary inadequate contractions (principal); D62 Acute posthemorrhagic anemia; O26.833 Pregnancy related renal disease, third trimester; N20.0 Calculus of kidney; O90.81 Anemia of the puerperium; O36.8330 Maternal care for abnormalities of the fetal heart rate or rhythm, third trimester, not applicable or unspecified; Z3A.38 38 weeks gestation of pregnancy; Z37.0 Single live birth
CPT/HCPCS: 36415; 81000; 85007; 85025; 85027; 86780; 86850; 86900; 86901; 87088; 94664; 99212

== ENCOUNTER → 2022-02-20 | Outpatient (CLI) | payer MEDICAID ==
[~2022-02-20] MED LIST changes: +DOCU100C37 PO; +OXC5T PO; +SIME80TA16 PO
--- NOTE | 2022-02-20 17:04 | Diagnostic Imaging Report ---
EXAMINATION: Abdomen 1 view. HISTORY: Dysuria. COMPARISON: None available. FINDINGS: There is a moderate amount of gas and stool throughout the colon. Nonobstructive bowel gas pattern. No radiopaque foreign body. The osseous structures are intact. IMPRESSION: Moderate stool burden without other acute abnormality in the abdomen. Dictated on workstation # [id number]
== END ==
LOC: RAD 12:29
PROVIDERS: ATTEND Nurse Practitioner Women's Health
DX: R30.0 Dysuria (principal)
CPT/HCPCS: 74018

== ENCOUNTER 2022-05-18 05:19 | Emergency (ER) | payer MEDICAID ==
[~2022-05-18] VITALS: Ht 172.7 cm; Wt 71.7 kg
[2022-05-18 05:25] VITALS: BP 115/74
[2022-05-18] MEDS ORDERED: FLUT16SP22 (05:32)
[2022-05-18] MEDS ORDERED: CYCL10TA25 PO (05:41)
--- NOTE | 2022-05-18 05:41 | ED Headache ---
General Chief Complaint: Head/Cervical Problems Stated Complaint: HEAD/NECK PAIN Nursing Triage Note: C/O POSTERIOR HEADACHE APPROX. 0415 THAT FELT LIKE CONTRACTIONS IN HER HEAD. PT REPORTS MARINO HAS RESOLVED AT THIS TIME. 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 SHE DENIES ANY INJURY OR UNUSUAL ACTIVITY. STATES SHE HAS HISTORY OF MIGRAINES, BUT THIS WAS NOT THE SAME HER NORMAL MIGRAINES PT STATES SHE HAD COVID 1 MONTH AGO, NO TREATMENT, THOSE SYMPTOMS RESOLVED STATES SHE HAS BEEN ILL SINCE THEN LMP--NOW, HAS IUD IN PLACE DELIVERED IN JANUARY, IS NOT STATES SHE HAS CHRONIC BACK PAIN SINCE THE EPIDURAL STATES SHE ALWAYS HURTS ALL OVER HER BODY, AND STATES SHE IS ALWAYS TIRED NONE OF THESE SYMPTOMS ARE ANY DIFFERENT TODAY PCP: [facility] Allergies and Home Medications Allergies Coded Allergies: ibuprofen (Verified Allergy, Mild, Hives, 11/24/21) Patient Home Medication List Cyclobenzaprine HCl (Cyclobenzaprine HCl) 10 Mg Tablet, 10 MG PO Q8H PRN for SPASMS Prescribed by: MARIANA NDIAYE on 05/18/22 0541 Fluticasone Propionate (Fluticasone Propionate) 50 Mcg/Actuation [place].susp, (Reported) Entered as Reported by: CEM RUFF on 05/18/22 0532 Last Action: New Order Discontinued Medications Docusate Sodium (Docusate Sodium) 100 Mg Capsule, 100 MG PO BID Discontinued Reason: No Longer Taking Prescribed by: JAKY VIZCARRA on 01/27/22 1030 Last Action: Discontinued Oxycodone Hcl (Oxyir Tablet) 5 Mg Tab, 5 MG PO Q3H PRN for PAIN-SEE DOSE INSTRUCTIONS Discontinued Reason: No Longer Taking Prescribed by: JAKY VIZCARRA on 01/27/22 1031 Last Action: Discontinued Simethicone (Simethicone) 80 Mg Tab.chew, 80 MG PO PCHS Discontinued Reason: No Longer Taking Prescribed by: JAKY VIZCARRA on 01/27/22 1030 Last Action: Discontinued Review of Systems Review of Systems Constitutional: no symptoms reported Eyes: No Symptoms Reported Ears, Nose, Mouth, Throat: no symptoms reported Respiratory: no symptoms reported Cardiovascular: no symptoms reported Gastrointestinal: no symptoms reported Genitourinary: no symptoms reported : No LMP: May 18, 2022 Musculoskeletal: see HPI Skin: no symptoms reported Psychiatric/Neurological: See HPI Past Wuwcjaf-Juolad-Wjpybg Hx Patient Social History Tobacco Use?: No Substance use?: No Alcohol Use?: Yes Alcohol Frequency: Once in a while Pt feels they are or have been: No Immunizations Up To Date First/Initial COVID19 Vaccinat: X3 Seasonal Allergies Seasonal Allergies: No Past Medical History Surgery/Hospitalization HX: , HEADACHES Surgeries: Yes Section Respiratory: No Cardiac: No Neurological: Yes Headaches /Migraines : No Last Menstrual Period: May 18, 2022 Reproductive Disorders: No COMPLIANCE LEAD History: IUD Genitourinary: No Gastrointestinal: No Musculoskeletal: No Endocrine: No HEENT: No Cancer: No Psychosocial: No Integumentary: No Blood Disorders: No Family Medical History Family history: Hypertension 03 FATHER Family history: Thyroid disorder 03 FATHER History of - respiratory disease 03 FATHER (COPD) No Family History of: Abdominal aortic aneurysm Domingo's disease Alcoholism Aphasia Cancer Cancer of colon Cataract Chest pain Congenital heart disease Congestive heart failure Cystic fibrosis Dementia Dysphagia Family history: Allergy Family history: Alzheimer's disease Family history: Arthritis Family history: Asthma Family history: Breast disease Family history: Cardiovascular disease Family history: Coronary thrombosis Family history: Diabetes mellitus Family history: Gastrointestinal disease Family history: Glaucoma Family history: Osteoporosis Headache Hearing loss Heart disease Hereditary disease History of - anemia History of - disorder History of drug abuse Human immunodeficiency virus (HIV) seropositivity Hypercholesterolemia Infertile Kidney disease Malignant neoplasm of lung Myocardial infarction Parkinson's disease Prostate cancer Psychotic disorder Seizure disorder Stroke Tuberculosis Visual impairment Physical Exam Vital Signs Vital Signs - First Documented 05/18/22 05:25 Temp 36.6 Pulse 63 Resp 16 B/P (MAP) 115/74 (88) Pulse Ox 100 O2 Delivery Room Air Capillary Refill : Less Than 3 Seconds Height, Weight, BMI Height: 5'8.00" Weight: 131lbs. oz. 59.683053my; 24.00 BMI Method:Stated General Appearance: WD/WN, no apparent distress, other (DOES NOT APPEAR ILL OR TO BE IN ANY DISCOMFORT OR DISTRESS) HEENT: PERRL/EOMI, normal ENT inspection, TMs normal, pharynx normal Neck: full range of motion, supple, other (MILD DIFFUSE POSTERIOR AND LATERAL CERVICAL MUSCLE TENDERNESS, AND MILD MUSCLE SPASMS. ) Cardiovascular: regular rate, rhythm, no murmur Respiratory: normal breath sounds, no respiratory distress, no accessory muscle use Back: other (STATES HER WHOLE BACK IS SORE TO PALPATION, BUT IS CHRONIC, SINCE HER EPIDURAL AND IS NO DIFFERENT TODAY. FULL ROM) Extremities: normal inspection Psychiatric: alert, oriented x 3 Coordination/Gait: normal gait Motor/Sensory: no motor deficit, no sensory deficit Skin: normal color, warm/dry; No rash; tattoos/piercings (EXTENSIVE TATTOOS) Progress/Results/Core Measures Results/Orders Vital Signs/I&O 05/18/22 05:25 Temp 36.6 Pulse 63 Resp 16 B/P (MAP) 115/74 (88) Pulse Ox 100 O2 Delivery Room Air Blood Pressure Mean: 88 Progress Progress Note : Progress Note PT STATES ALL HER SYMPTOMS RESOLVED PRIOR TO ARRIVAL NO INDICATION FOR ANY TESTS AT THIS TIME WILL PRESCRIBE MUSCLE RELAXANT, AND PT STATES SHE CAN TAKE OVER THE COUNTER ALEVE WELL TYLENOL REVIEWED PRIOR RECORDS INCLUDING ER VISITS, ADMITS, H&PS, TESTS/PROCEDURES, DISCHARGE SUMMARIES DISCUSSED ANTICIPATED COURSE, SYMPTOMATIC TREATMENT, MEDICATION, NEED FOR FOLLOW UP AND RETURN PRECAUTIONS PT WANTS A WORK 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 Decision time for Depature: 05:40 Referrals: [facility] ([facility]) Primary Care Physician [facility] Patient Instructions: Muscle Spasm ED, Headache, Adult ED, Using Heat for Pain Add. Discharge Instructions: MOIST HEAT TO NECK AT 20 MINUTE INTERVALS TAKE 2 ALEVE 2 TIMES A DAY FOR PAIN AVOID SUDDEN MOVEMENTS OF YOUR HEAD AND NECK [facility] IF NO BETTER, RETURN TO ER IF SYMPTOMS WORSEN All discharge instructions reviewed with patient and/or family. Voiced understanding. Scripts Cyclobenzaprine HCl (Cyclobenzaprine HCl) 10 Mg Tablet 10 MG PO Q8H PRN for SPASMS, #15 TAB 0 Refills Prov: MARIANA NDIAYE DO 05/18/22 Work/School Note: Work Release Form Date Seen in the Emergency Department: May 18, 2022 MARIANA NDIAYE DO May 18, 2022 05:41
== END 2022-05-18 05:42 | disposition home or self-care (01) ==
LOC: EDUNIT# 05:19 → ER 05:22
DX: G44.209 Tension-type headache, unspecified, not intractable (principal); M62.838 Other muscle spasm; Z86.16 Personal history of COVID-19
CPT/HCPCS: 99281

== ENCOUNTER 2023-01-03 08:42 | Emergency (ER) | payer MEDICAID ==
[~2023-01-03] VITALS: Ht 172.7 cm; Wt 70.3 kg
[~2023-01-03 08:42] MED LIST changes: +CYCL10TA25 PO; +FLUT16SP22
--- NOTE | 2023-01-03 09:09 | ED General ---
General Chief Complaint: Head/Cervical Problems Stated Complaint: CERVICAL Nursing Triage Note: PT AMBULATE TO ROOM 07 WITHOUT DIFFICULTY WITH C/O SHOULDER/NECK/HEAD PAIN X3 MONTHS. PT REPORTS SEEING PCP AND ORTHO X3 MONTHS AGO AND GIVEN CORTISONE INJECTION AND TOLD PAIN WAS DUE TO MUSCLE SPASMS. PT REPORTS SHE HAS NOT FOLLOWED UP AFTER THAT VISIT. PT REPORTS TAKING FLEXERIL FOR PAIN WITHOUT RELIEF. History of Present Illness Date Seen by Provider: Jan 03, 2023 Time Seen by Provider: 09:09 Initial Comments Patient is a 37-year-old female who presents to the emergency department with a chief complaint of left lateral posterior neck pain, headache, shoulder and arm pain ongoing for 3 months. She was seen by Francisco Aleman NP for Dr. Vee 3 months ago at [facility] and had a "injection" in her left posterior shoulder. She states it has not helped. She has been taking Flexeril periodically since that time with "BC powder". She denies numbness tingling or weakness to her left upper extremity. She states for the last 3 days its been hurting worse. She is very tearful and anxious regarding the pain. 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 This is very stressful especially when she is hurting. She denies any complaints of chest pain, shortness of breath, fevers. No rashes. She denies trauma or injury acutely to the area. She states several years ago she thinks she had a "rotator cuff tear". She has tried Voltaren gel but she states it made her nauseated. She cannot take ibuprofen because she gets hives. She does have prescriptions for baclofen, meloxicam at home but has not been taking them because she did not know that she could. These were prescribed after her knee surgery in May 2022. Timing/Duration: Other (3 months, worse in the last 3 days) Severity: Severe Modifying Factors: worse with Movement; improves with Rest Associated Systoms: Headaches (left sided) Allergies and Home Medications Allergies Coded Allergies: ibuprofen (Verified Allergy, Mild, Hives, 11/24/21) Patient Home Medication List Home Medication List Reviewed: Yes Cyclobenzaprine HCl (Cyclobenzaprine HCl) 10 Mg Tablet, 10 MG PO Q8H PRN for SPASMS Prescribed by: MARIANA NDIAYE on 05/18/22 0541 Fluticasone Propionate (Fluticasone Propionate) 50 Mcg/Actuation [place].susp, (Reported) Entered as Reported by: CEM RUFF on 05/18/22 0532 Review of Systems Review of Systems Constitutional: see HPI EENTM: other (left neck pain) Respiratory: no symptoms reported Cardiovascular: no symptoms reported Gastrointestinal: no symptoms reported Genitourinary: no symptoms reported Musculoskeletal: muscle pain, muscle stiffness, neck pain Skin: no symptoms reported Psychiatric/Neurological: Anxiety ((worried about haing a brain tumor)) All Other Systems Reviewed Negative Unless Noted: Yes Past Nabsnef-Kynbyo-Teaxke Hx Patient Social History Tobacco Use?: No Smoking Status: Never a Smoker Smokeless Tobacco Frequency: Never a User Use of E-Cig and/or Vaping dev: No Use of E-Cig and/or Vaping [place]: Never a User Substance use?: No Alcohol Use?: Yes Alcohol Frequency: Once in a while Pt feels they are or have been: No Immunizations Up To Date First/Initial COVID19 Vaccinat: X3 Seasonal Allergies Seasonal Allergies: No Past Medical History Surgery/Hospitalization HX: , HEADACHES Surgeries: Yes Section Respiratory: No Cardiac: No Neurological: Yes Headaches /Migraines Reproductive Disorders: No 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 Genitourinary: No Gastrointestinal: No Musculoskeletal: No Endocrine: No HEENT: No Cancer: No Psychosocial: No Integumentary: No Blood Disorders: No Family Medical History Family history: Hypertension 03 FATHER Family history: Thyroid disorder 03 FATHER History of - respiratory disease 03 FATHER (COPD) No Family History of: Abdominal aortic aneurysm [place]'s disease Alcoholism Aphasia Cancer Cancer of colon Cataract Chest pain Congenital heart disease Congestive heart failure Cystic fibrosis Dementia Dysphagia Family history: Allergy Family history: Alzheimer's disease Family history: Arthritis Family history: Asthma Family history: Breast disease Family history: Cardiovascular disease Family history: Coronary thrombosis Family history: Diabetes mellitus Family history: Gastrointestinal disease Family history: Glaucoma Family history: Osteoporosis Headache Hearing loss Heart disease Hereditary disease History of - anemia History of - disorder History of drug abuse Human immunodeficiency virus (HIV) seropositivity Hypercholesterolemia Infertile Kidney disease Malignant neoplasm of lung Myocardial infarction Parkinson's disease Prostate cancer Psychotic disorder Seizure disorder Stroke Tuberculosis Visual impairment Physical Exam Vital Signs Vital Signs - First Documented 01/03/23 08:49 Temp 35.8 Pulse 73 Resp 15 B/P (MAP) 105/82 (90) O2 Delivery Room Air Capillary Refill : Less Than 3 Seconds Height, Weight, BMI Height: 5'8.00" Weight: 131lbs. oz. 59.162212oi; 23.00 BMI Method:Stated General Appearance: WD/WN, Anxious, Mild Distress ((tearful and upset)) Eyes: Bilateral Eye Normal Inspection, Bilateral Eye PERRL, Bilateral Eye EOMI HEENT: PERRL/EOMI Neck: Supple; No Limited Range of Motion, No Lymphadenopathy (L), No Lymphadenopathy (R); Tender Lateral (tenderness to palpation over the lft SCM without erythema/ swelling; normal ROM) Respiratory: No Accessory Muscle Use, No Respiratory Distress Cardiovascular: Normal Peripheral Pulses Extremity: Normal Capillary Refill, Normal Inspection, Normal Range of Motion, Non Tender Neurologic/Psychiatric: Alert, Oriented x3, No Motor/Sensory Deficits, Depressed Affect (tearful) Skin: Normal Color, Warm/Dry Progress/Results/Core Measures Suspected Sepsis SIRS Temperature: Pulse: 73 Respiratory Rate: 15 Blood Pressure 105 /82 Mean: 90 Results/Orders My Orders Orders - CELESTINO WHITMAN MD Ketorolac Injection (Ketorolac Injection (01/03/23 09:30) Orphenadrine Inj (Ed Only) (Orphenadrine (01/03/23 09:30) Vital Signs/I&O 01/03/23 08:49 Temp 35.8 Pulse 73 Resp 15 B/P (MAP) 105/82 (90) O2 Delivery Room Air Capillary Refill : Less Than 3 Seconds Blood Pressure Mean: 90 Progress Note : Time: 09:31 Progress Note Patient seen and evaluated by me Rosy russo today includes physical exam. Pertinent for WDWN anxious and tearful female - HEENT exam shows tenderness to palpation to the left SCM near insertion site at the neck,; no cervical LAD. FROM - no midline cervical spine tenderness. LEFT Upper extremity shows FROM without reproduction of the pain. distal NVI. No rashes. Normal strength. ddx cervical radiculopathy; muscle spasm Patient treated in the ER with IM toradol 30mg and 60mg of norflex. I reassured her that she has the appropriate medications at home - she can take the baclofen and her meloxicam for these symptoms if the flexeril is not working. I also advised ice and heat alternating. She can try lidicaine patches and of course she needs to follow up with her Primary care provider as well as CINDI Aleman if things are not improving. I do not this there is an indication at this time for emergent CT or MRI as she is neurologically intact. REturn precautions provided. Departure Impression Primary Impression: Cervicalgia Disposition: HOME, SELF-CARE Condition: Stable Departure-Patient Inst. Decision time for Depature: 09:35 Referrals: [place] [facility] (PC[facility]Family) Primary Care Physician Patient Instructions: Neck Pain ED Add. Discharge Instructions: You can use your Meloxicam daily, as well as either your flexeril OR baclofen. - always take the dose with food. Thise medications can make you sleepy - do not drive and take them. I have sent a prescription for prednisone to your pharmacy in [place]. Take one pill once a day - also with food. While taking the meloxicam and the prednisone - you need an over the counter acid pickling grader such as generic pepcid or prilosec daily. Over the counter Lidocaine patches to the area of soreness can help as well as alternating heat and ice. Please call your primary care provider for a follow up appointment this week. Return to the Emergency Department for any new, concerning or emergent complaints. Scripts Prednisone (Prednisone) 50 Mg Tab 50 MG PO DAILY for 5 Days, #5 TAB Prov: CELESTINO WHITMAN MD 01/03/23 CELESTINO WHITMAN MD Jan 03, 2023 09:09
[2023-01-03] MEDS ORDERED: KETOROLAC INJ 30 MG/ML VIAL IVP ONE (09:30)
[2023-01-03] MEDS ORDERED: ORPHENADRINE 60 MG/2 ML AMP (ED ONLY) IM ONE (09:30)
[2023-01-03] MEDS ORDERED: PRD50T PO (09:39)
[2023-01-03 09:42] VITALS: BP 129/68
== END 2023-01-03 09:42 | disposition home or self-care (01) ==
LOC: EDUNIT# 08:42 → ER 08:44
DX: M54.2 Cervicalgia (principal)
CPT/HCPCS: 96372; 99284